=== PATIENT | male | born 1970 | race Caucasian/White ===

== ENCOUNTER → 2017-12-23 14:24 | Outpatient (CLI) | payer BC, SELFPAY ==
[2017-12-23 17:03] LABS: Absolute Lymphocyte Count 1.57 X10^3/ul (0.83-4.51); Absolute Neutrophil Count 3.2 X10^3/uL (2.0-7.7); Basophil# 0.02 X10^3/uL; Basophil% 0.4 % (0-1); Eosinophil# 0.15 X10^3/uL; Eosinophils% 2.8 % (0-5); Hematocrit 45.2 % (40-54); Lymphocyte # 1.57 X10^3/ul (4.0); Lymphocyte % 29.4 % (19-41); Mean Corp Hgb Conc 33.2 g/gl (32-36); Mean Corpuscular Hgb 28.1 pg (27.0-32.0); Mean Corpuscular Volume 84.6 fL (80-94); Mean Platelet Vol. 11.1 fl (6.2-12.0); Monocyte# 0.36 X10^3/uL; Monocyte% 6.7 % (0-10); Neutrophil # 3.24 X10^3/uL (2.7-7.7); Neutrophil % 60.7 % (47-70); POSITIVE COUNT NO; POSITIVE DIFFERENTIAL NO; POSITIVE MORPHOLOGY NO; Platelet Count 183 K/mm3 (150-450); RBC Distribution Width CV 13.2 % (11.6-14.6); RBC Distribution Width SD 40.4 fl (35.1-43.9); Red Blood Count 5.34 M/mm3 (4.6-6.2); White Blood Count 5.3 K/mm3 (4.4-11.0)
[2017-12-23 17:29] LABS: ALB/GLOB Ratio 1.1 RATIO (0.9-2.4); AST(SGOT) 22 U/L (15-37); Alanine Aminotransfer ALT/SGPT 35 U/L (16-61); Alkaline Phosphatase 63 U/L (45-117); Anion Gap 7 (5-15); BUN 19 mg/dL (7-18); BUN/Creat Ratio 18.4 RATIO (10-20); Calcium,Total 9.1 mg/dL (8.5-10.1); Chloride 108 mmol/L (98-107); Creatinine, Serum 1.03 mg/dL (0.70-1.30); EST Glomerular Filtration Rate 82 mL/min (>60); Est Glom Filt Rate - Afr Amer 99 mL/min (>60); Globulin 3.5 g/dL (2.2-4.2); Glucose 93 mg/dL (74-106); Potassium 3.9 mmol/L (3.5-5.1); Protein, Total 7.5 g/dL (6.4-8.2); Sodium Level 141 mmol/L (136-145); Thyroid Stim Hormone (TSH) 1.03 uIU/mL (0.358-3.74)
[2017-12-23 17:55] LABS: Vitamin D,25 Hydroxy 17.3 ng/mL (29.95-100.01)
== END ==
PROVIDERS: Family Provider Family Medicine Geriatric Medicine; PCP Family Medicine Geriatric Medicine; Visit Provider Family Medicine Geriatric Medicine
DX: E55.9 Vitamin D deficiency, unspecified (principal); I10 Essential (primary) hypertension
CPT/HCPCS: 36415; 80053; 82306; 84443; 85025

== ENCOUNTER → 2018-12-28 16:04 | Outpatient (CLI) | payer BC, SELFPAY ==
[2018-12-28 16:55] LABS: Absolute Neutrophil Count 2.8 X10^3/uL (2.0-7.7); Basophil# 0.01 X10^3/uL; Basophil% 0.2 % (0-1); Eosinophil# 0.14 X10^3/uL; Eosinophils% 2.5 % (0-5); Hematocrit 44.5 % (40-54); Hemoglobin 15.1 g/dl (13.0-16.5); Lymphocyte % 37.1 % (19-41); Mean Corp Hgb Conc 33.9 g/gl (32-36); Mean Corpuscular Hgb 27.9 pg (27.0-32.0); Mean Corpuscular Volume 82.3 fL (80-94); Mean Platelet Vol. 11.3 fl (6.2-12.0); Monocyte# 0.55 X10^3/uL; Monocyte% 9.7 % (0-10); Neutrophil # 2.84 X10^3/uL (2.7-7.7); Neutrophil % 50.1 % (47-70); Platelet Count 193 K/mm3 (150-450); RBC Distribution Width CV 13.7 % (11.6-14.6); RBC Distribution Width SD 40.9 fl (35.1-43.9); Red Blood Count 5.41 M/mm3 (4.6-6.2); White Blood Count 5.7 K/mm3 (4.4-11.0)
[2018-12-28 17:11] LABS: Vitamin D,25 Hydroxy 22.8 ng/mL (29.95-100.01)
--- NOTE | 2018-12-28 17:11 | RAD_ITS ---
STUDY: X-RAY CHEST REASON FOR EXAM: Male, 48 years old. Dyspnea TECHNIQUE: Frontal and lateral views of the chest COMPARISON: CT dated 08/07/2016. FINDINGS: There are stable calcified granulomata noted in the lungs. The lungs are otherwise clear. There are no pleural effusions. There is no pneumothorax. The heart is normal in size. The visualized osseous structures are within normal limits. RAD/Chest PA and Lateral IMPRESSION: No acute thoracic pathology. Electronically Signed: Vadim Monge, at 18:02 EDT Tel , Service support ,
[2018-12-28 17:12] LABS: POSITIVE COUNT NO; POSITIVE DIFFERENTIAL NO; POSITIVE MORPHOLOGY NO
[2018-12-28 17:15] LABS: ALB/GLOB Ratio 1.3 RATIO (0.9-2.4); AST(SGOT) 23 U/L (15-37); Alanine Aminotransfer ALT/SGPT 42 U/L (16-61); Albumin, Serum 4.2 g/dL (3.2-5.0); Alkaline Phosphatase 62 U/L (45-117); Anion Gap 8 (5-15); BUN 16 mg/dL (7-18); BUN/Creat Ratio 18.8 RATIO (10-20); Calcium,Total 9.5 mg/dL (8.5-10.1); Chloride 105 mmol/L (98-107); Creatinine, Serum 0.85 mg/dL (0.70-1.30); EST Glomerular Filtration Rate 101 mL/min (>60); Est Glom Filt Rate - Afr Amer 122 mL/min (>60); Globulin 3.3 g/dL (2.2-4.2); Glucose 77 mg/dL (74-106); Potassium 3.8 mmol/L (3.5-5.1); Protein, Total 7.5 g/dL (6.4-8.2); Sodium Level 140 mmol/L (136-145); Thyroid Stim Hormone (TSH) 1.79 uIU/mL (0.358-3.74)
== END ==
LOC: POLAB3 16:04 → RAD 17:10
PROVIDERS: Family Provider Family Medicine Geriatric Medicine; PCP Family Medicine Geriatric Medicine; Referring Provider Family Medicine Geriatric Medicine; Visit Provider Family Medicine Geriatric Medicine
DX: R06.02 Shortness of breath (principal); E55.9 Vitamin D deficiency, unspecified; I10 Essential (primary) hypertension
CPT/HCPCS: 36415; 71046; 80053; 82306; 84443; 85025

== ENCOUNTER → 2019-02-01 09:44 | Outpatient (CLI) | payer BC, SELFPAY ==
--- NOTE | 2019-02-01 10:36 | ECHOD_ITS ---
Reason For Study: SOB Procedure This was a 2D Doppler, Color Flow transthoracic echocardiogram. Exam performed in department. Left Ventricle Normal LV size. Left ventricular systolic function is normal. The estimated ejection fraction is 60 %. No evidence for diastolic dysfunction. No regional wall motion abnormalities noted. Right Ventricle Normal RV size. Normal systolic function. Atria Normal left atrium. Normal right atrium. No doppler evidence for ASD. Mitral Valve There is no mitral annular calcification. Mild diffuse mitral valve thickening. Moderate mitral valve prolapse, posterior leaflet. Mild-Moderate (1-2+) mitral valve insufficiency. Tricuspid Valve Normal tricuspid valve. Trivial tricuspid valve insufficiency. Right ventricular systolic pressure estimated to be 25 mmHg. Aortic Valve Trisinus/trileaflet aortic valve. Mild focal aortic valve calcification. Trivial aortic valve insufficiency. Pulmonic Valve The pulmonic valve is not well visualized. Trivial pulmonic valve insufficiency. Great Vessels Normal sized aortic root. Pericardium/Pleural No pericardial effusion. MMode/2D Measurements & Calculations LVIDd: 4.3 cm IVSd: 1.4 cm Ao root diam: 3.6 cm LVIDs: 2.7 cm LVPWd: 1.6 cm RVDd: 3.6 cm FS: 38.2 % LAV(MOD-bp): 47.2 ml LVAd ap4: 34.4 cm2 SV(MOD-sp4): 69.1 ml LAV(MOD-bp) Indexed: 20.2 ml/m2 EDV(MOD-sp4): 110.5 ml LAV(MOD-sp2): 38.7 ml EDV(sp4-el): 115.6 ml LAV(MOD-sp4): 50.8 ml LVAs ap4: 19.6 cm2 ESV(MOD-sp4): 41.3 ml ESV(sp4-el): 43.5 ml EF(MOD-sp4): 62.6 % EF(sp4-el): 62.4 % SV(sp4-el): 72.1 ml LA A4 area: 17.0 cm2 LA dimension(2D): 3.5 cm RA A4 area: 14.6 cm2 Doppler Measurements & Calculations MV E max jeff: 69.4 cm/sec Lat Peak E' Jeff: 9.2 cm/sec Med Peak E' Jeff: 7.9 cm/sec MV A max jeff: 61.0 cm/sec E/E' lat: 7.5 E/E' med: 8.8 MV E/A: 1.1 Ao V2 max: 126.1 cm/sec LV V1 max: 97.2 cm/sec PA V2 max: 121.1 cm/sec Ao max P.4 mmHg LV V1 max P.8 mmHg TR max jeff: 231.7 cm/sec TR max P.5 mmHg Interpretation Summary Left ventricular systolic function is normal. The estimated ejection fraction is 60 %. Moderate mitral valve prolapse, posterior leaflet Mild diffuse mitral valve thickening. Mild-Moderate (1-2+) mitral valve insufficiency. Trivial tricuspid valve insufficiency. Mild focal aortic valve calcification. Trivial aortic valve insufficiency. Trivial pulmonic valve insufficiency. Right ventricular systolic pressure estimated to be 25 mmHg. No evidence for diastolic dysfunction. Ordering Physician: Claude Onofre Referring Physician: Claude Onofre Chi Performed By: Zoraida Noble, MIKIE
--- NOTE | 2019-02-03 07:55 | PFT ---
INTRODUCTION: The patient is a 49-year-old male that presents for pulmonary function studies secondary to a diagnosis of shortness of breath. Respiratory therapy reports good patient effort. Bronchodilators were used during testing. INTERPRETATION: Forced expiration spirometry demonstrates no evidence of a large airways obstructive ventilatory defect. There was no significant response to aerosolized bronchodilators. Spirograms are of good quality and plateau normally. The respiratory flow volume loop appears normal. Body plethysmography was performed and reveals lung volumes to be within normal limits. Diffusing capacity by single breath CO is also within normal limits. IMPRESSION: Normal pulmonary function studies.
== END ==
PROVIDERS: Family Provider Family Medicine Geriatric Medicine; PCP Family Medicine Geriatric Medicine; Referring Provider Family Medicine Geriatric Medicine; Visit Provider Family Medicine Geriatric Medicine
DX: R06.02 Shortness of breath (principal)
CPT/HCPCS: 93306; 94060; 94726; 94729

== ENCOUNTER → 2019-02-18 06:22 | Outpatient (CLI) | payer BC, SELFPAY ==
[2019-02-07 13:07] VITALS: BMI 33.6
--- NOTE | 2019-02-18 10:21 | STRESSREP_ITS ---
Stress Test Report Date: 02-18-19 Procedure: Exercise tolerance test/imaging study Indications: Chest pain; mitral valve prolapse Consent: Per the patient Procedure: The patient exercised on a Darrion protocol for 9 minutes completing Stage III achieving a peak heart rate of 155 bpm (91 % predicted maximal heart rate) with a peak blood pressure 190/70 mmHg and a peak MET capacity of 10 METs. The baseline ECG demonstrated sinus bradycardia. The peak exercise ECG demonstrated approximately [address] segment depression in leads II, III, aVF, and V4 through V6 with resolution towards baseline beginning by 1 minute in recovery. There were no cardiac dysrhythmias pretest, during exercise, or recovery. The functional capacity was considered good. There was no complaint of chest discomfort during exercise or recovery. The examination was discontinued secondary to dyspnea. Impression: 1. Technically adequate (percent predicted maximal heart rate greater than 85%) exercise tolerance test 2. Peak exercise ECG demonstrated approximately [address] segment depression in leads II, III, aVF, and V4 through V6 with resolution towards baseline beginning by 1 minute in recovery 3. There were no cardiac dysrhythmias pretest, during exercise, or recovery 4. Nuclear images pending Myocardial perfusion imaging study: Technique: The patient was injected with 14.3 mCi of technetium 99m Cardiolite and subsequently rest SPECT Cardiolite nuclear imaging was obtained in the horizontal long, vertical long, and short axis views. The patient exercised on a Darrion protocol for 9 minutes completing Stage III achieving a peak heart rate of 155 bpm (91 % predicted maximal heart rate) with a peak blood pressure 190/70 mmHg and a peak MET capacity of 10 METs. The patient was injected with 44.5 mCi of technetium 99m Cardiolite and subsequently stress SPECT Cardiolite nuclear imaging was obtained in the horizontal long, vertical long, and short axis views. A gated Cardiolite study at peak stress was obtained. Interpretation: Rest and stress SPECT Cardiolite nuclear imaging status post realignment, normalization, and attenuation correction, demonstrates the appearance of relative uniform tracer uptake and myocardial perfusion appearing within normal limits. There were no myocardial perfusion deficits appreciated on the stress polar map images there is end systolic thickening and brightening. The gated Cardiolite study demonstrates myocardial thickening and inward wall motion. The reported LVEF is 63 %. Impression: 1. Rest and stress SPECT Cardiolite nuclear imaging demonstrate relative uniform tracer uptake and myocardial perfusion appearing within normal limits. 2. The gated Cardiolite study reports an LVEF of 63 %. This note was generated with [employer] software. It may contain incorrect words, spelling, and punctuation that were not noted in checking the note before signing.
== END ==
PROVIDERS: Family Provider Family Medicine Geriatric Medicine; PCP Family Medicine Geriatric Medicine; Referring Provider Specialist; Visit Provider Specialist
DX: R07.9 Chest pain, unspecified (principal)
CPT/HCPCS: 78452; 93017; A9500; A4216

== ENCOUNTER 2019-05-19 19:15 | Emergency (ER) | payer BC, SELFPAY ==
[2019-04-27 11:28] VITALS: BMI 33.6
[2019-05-19 19:18] VITALS: BP 145/101; PULSE 99; RESP 18; TEMP 35.3; O2SAT 92; BMI 33.9
--- NOTE | 2019-05-19 19:24 | CT_ITS ---
HISTORY:RT FLANK PAIN TECHNIQUE:CT Abdomen And Pelvis W/O Contrast Axial CT images were obtained of the abdomen and pelvis without oral or IV contrast. Multiplanar rectructions were also obtained. A radiation dose optimization technique was used for this scan. # of images including paperwork:[id number] COMPARISON: None FINDINGS: LUNG BASES: Multiple calcified granuloma LIVER T BILIARY TRACT: Steatosis GALLBLADDER:No cholelithiasis or ductal dilatation PANCREAS: Unremarkable for nonenhanced study SPLEEN: Unremarkable. ADRENAL GLANDS: Unremarkable. KIDNEYS/URETERS:Nonobstructing calcification measuring approximately 2 mm in the upper pole left kidney. There are also nonobstructing Calcifications seen within the right kidney. There is mild right-sided hydronephrosis. Calcification within the inferior collecting system is the largest and measures approximately 6.4 mm. Minimal dilatation of the right ureter that extends to the ureterovesicular junction. There is a 4 mm calcification within the bladder compatible with a recently passed stone. No stones are seen in the left ureter BLADDER: There is a recently passed stone within the bladder STOMACH, SMALL AND LARGE BOWEL: stomach and small bowel are unremarkable No mechanical obstruction No diverticulitis APPENDIX: No appendicitis. ASCITES: Unremarkable. FREE AIR: Unremarkable. PELVIS: Calcifications within the prostate gland. The prostate gland is not apparent enlarged AORTA: Unremarkable. LYMPH NODES: Unremarkable. OSSEOUS STRUCTURES: No acute osseous abnormality CT/Abdomen/Pelvis without Cont IMPRESSION: Mild right-sided hydronephrosis and hydroureter extending to the root of vesicular junction. There is a 4 mm calcification seen within the bladder compatible with a recently passed stone There are nonobstructive gas calcifications seen bilaterally in the kidneys Hepatic steatosis Multiple calcified granuloma in the lungs bilaterally Individualized dose optimization techniques were used for this CT. at 2002 Reported and signed by: Bre Jung DO Electronically Signed: Bre Jung DO at 20:00 EDT Tel , Service support ,
--- NOTE | 2019-05-19 19:29 | ED.VIS.GEN ---
History of Present Illness Chief Complaint: Complaint Informant: Patient Onset: Today Context: Sudden Onset Timing: Intermittent Current Severity: Moderate Maximum Severity: Moderate Narrative: The patient presents to the emergency department with right-sided flank pain. Patient has a history of kidney stone. He states about 4:00 today, he began to have mild pain. He states that wax and wane, and then acutely worsened. The pain radiates into his right testicles. He does describe nausea. He has not vomited. He denies any fevers or chills. He states that he is always passed his stones without issue. He is never required lithotripsy or stenting. Prior similar symptoms: No Recent Illness/Hospitalization: No Past Medical History - Allergies and Home Meds Allergies/Adverse Reactions: Allergies No Known Allergies Allergy (Verified 05/19/19 19:20) Primary Care Physician: Fletcher Pritchett MD [STAFF PHYSICIAN] - Prior records reviewed: Yes Smoking Status: Former smoker Review of Systems General: Denies: Chills, Fever, Sweats Eyes: Denies: Visual changes - bilaterally, Diplopia ENT: Denies: Rhinorrhea, Sore throat Cardiovascular: Denies: Chest pain, Palpitations Respiratory: Denies: Dyspnea, Cough, Dyspnea on exertion Gastrointestinal: Reports: Abdominal pain, Nausea, Vomiting. Denies: Diarrhea, Melena, Hematochezia Genitourinary: Denies: Dysuria, Hematuria, Frequency Musculoskeletal: Reports: Back pain. Denies: Extremity Pain Skin: Denies: Rash, Wounds Neurological: Denies: Headache, Weakness, Numbness Physical Exam Vital Signs/Narrative: Vital Signs Temp Pulse Resp BP Pulse Ox 05/19/19 19:18 95.6 F L 99 18 145/101 H 92 Inital Vital Signs reviewed: Yes General: Well nourished, Well developed, No Acute Distress Head: Normocephalic, Atraumatic Eyes: Perrl, EOMI ENT: Moist mucous membranes, No rhinorrhea Neck: Supple, Nontender Cardiovascular: Regular rate, Regular rhythm, No murmurs Respiratory: No distress, CTA bilaterally, Chest nontender Abdomen: Soft, Nontender, Nondistended, Normal bowel sounds Back: Nontender, Normal Inspection Extremities: Nontender, No edema Skin: Normal color, No rash Neurological: Alert, Oriented x3, Cranial nerves II-XII grossly intact, Normal Strength, Normal Sensation Psychological: Normal affect, Normal Mood Diagnostic/Tx/Re-eval Clinical Impression(s) from Imaging Studies Abdomen/Pelvis CT 05/19/19 19:24 IMPRESSION: Mild right-sided hydronephrosis and hydroureter extending to the root of vesicular junction. There is a 4 mm calcification seen within the bladder compatible with a recently passed stone There are nonobstructive gas calcifications seen bilaterally in the kidneys Hepatic steatosis Multiple calcified granuloma in the lungs bilaterally Individualized dose optimization techniques were used for this CT. at 2002 Reported and signed by: Bre Jung DO Electronically Signed: Bre Jung DO at 20:00 EDT Tel , Service support , Abnormal Lab Results 05/19/19 05/19/19 05/19/19 19:30 19:30 20:27 WBC 9.6 RBC 5.55 Hgb 15.9 Hct 48.0 MCV 86.5 MCH 28.6 MCHC 33.1 RDW Std Deviation 40.5 RDW Coeff of Funmilayo 13.0 Plt Count 189 MPV 10.7 Immature Gran % (Auto) 0.400 Neut % (Auto) 81.9 H Lymph % (Auto) 13.2 L [place] % (Auto) 3.6 Eos % (Auto) 0.5 Baso % (Auto) 0.4 Absolute Neuts (auto) 7.8 H Absolute Lymphs (auto) 1.26 Nucleated RBC % 0 Sodium 140 Potassium 3.8 Chloride 105 Carbon Dioxide 29.0 Anion Gap 6 BUN 19 H Creatinine 1.41 H Estim Creat Clear Calc 68.79 Est GFR (MDRD) Af Amer 68 Est GFR (MDRD) Non-Af 57 L BUN/Creatinine Ratio 13.5 Glucose 163 H Calcium 9.7 Urine Color Yellow Urine Clarity Sl. Cloudy Urine pH 5.0 Ur Specific [place] 1.030 Urine Protein 15 H Urine Glucose (UA) Normal Urine Ketones 5 H Urine Occult Blood 250 H Urine Nitrite Negative Urine Bilirubin Negative Urine Urobilinogen Normal Ur Leukocyte Esterase 25 H Urine RBC 5-10 SEEN Urine WBC 0-5 SEEN Ur Squamous Epith Cells 0 SEEN Calcium Oxalate Crystal 1+ Urine Bacteria RARE Urine Mucus 3+ - Medical Decision Making The patient symptoms are consistent with renal colic. IV was established. He was given analgesics and antiemetics. On reevaluation, he is pain-free. He does have mild elevation of his kidney function. CT demonstrates a 4 mm stone that is already in the bladder. The patient continues rest comfortably. At this point, I do feel that he is safe for outpatient therapy. He has seen urology in the past. His stone is already in the bladder. Given a short course of analgesics. He will be discharged home. Impression 1. 4 mm right urolithiasis in the bladder ED Disposition - Plan for ED Patient: Instructions: KIDNEY STONE w/ Colic Prescriptions: Hydrocodone Bitart/Apap 5-325 [[place] 5MG-325MG] 1 tab PO Q4H PRN PRN 2 Days #10 tab PRN Reason: Pain Prescription Printed Ondansetron [Zofran Odt] 4 mg PO Q8H PRN PRN #10 tab PRN Reason: Nausea Prescription Printed Referrals: Fletcher Pritchett MD [STAFF PHYSICIAN] -
[2019-05-19 19:39] VITALS: RESP 16
[2019-05-19 19:39] LABS: Absolute Lymphocyte Count 1.26 X10^3/uL (0.83-4.51); Absolute Neutrophil Count 7.8 X10^3/uL (2.0-7.7); Basophil# 0.04 X10^3/uL; Basophil% 0.4 % (0-1); Eosinophil# 0.05 X10^3/uL; Eosinophils% 0.5 % (0-5); Hemoglobin 15.9 g/dL (13.0-16.5); Lymphocyte # 1.26 X10^3/ul (4.0); Lymphocyte % 13.2 % (19-41); Mean Corp Hgb Conc 33.1 g/dL (32-36); Mean Corpuscular Hgb 28.6 pg (27.0-32.0); Mean Corpuscular Volume 86.5 fL (80-94); Mean Platelet Vol. 10.7 fl (6.2-12.0); Monocyte# 0.34 X10^3/uL; Monocyte% 3.6 % (0-10); NRBC Flagged by Analyzer 0 % (0-5); Neutrophil # 7.83 X10^3/uL (2.7-7.7); Neutrophil % 81.9 % (47-70); Platelet Count 189 K/mm3 (150-450); RBC Distribution Width SD 40.5 fl (35.1-43.9); Red Blood Count 5.55 M/mm3 (4.6-6.2); White Blood Count 9.6 K/mm3 (4.4-11.0)
[2019-05-19] MEDS: 0.9% Normal Saline 1,000 ML 250 ML IV (19:44)
[2019-05-19] MEDS: Morphine 4 MG/ML Syringe IV (19:45)
[2019-05-19] MEDS: Ondansetron 4 MG/2 ML Vial IV (19:45)
[2019-05-19] MEDS: Ketorolac 30 MG/ML Syringe IV (19:47)
[2019-05-19 19:51] LABS: Anion Gap 6 (5-15); BUN 19 mg/dL (7-18); BUN/Creat Ratio 13.5 RATIO (10-20); Calcium,Total 9.7 mg/dL (8.5-10.1); Chloride 105 mmol/L (98-107); Creatinine, Serum 1.41 mg/dL (0.70-1.30); EST Glomerular Filtration Rate 57 mL/min (>60); Est Glom Filt Rate - Afr Amer 68 mL/min (>60); Estimated Creatinine Clearance 68.79 ml/min; Glucose 163 mg/dL (74-106); Potassium 3.8 mmol/L (3.5-5.1); Sodium Level 140 mmol/L (136-145)
[2019-05-19 20:37] LABS: Squamous Epithelial Cells - UA 0 SEEN /hpf (0-5)
[2019-05-19 20:38] LABS: Color, Urine Yellow (Yellow); Glucose, Dipstick Normal (Normal); Ketone-Dipstick 5 mg/dl (Negative); Leukocyte Esterase-Dipstick 25 /ul (Negative); Nitrite-Dipstick Negative (Negative); Occult Blood-Urine 250 /ul (Negative); Protein-Dipstick 15 mg/dl (Negative); Urine Bilirubin Dipstick Negative (Negative); Urine Clarity Sl. Cloudy (Clear); Urine Urobilinogen Normal (Normal)
[2019-05-19 20:56] LABS: Calcium Oxalate Crystals Ur 1+ /hpf (<or=2+); Mucous, Urine 3+ /hpf (<or=2+); Red Blood Cells-Urine 5-10 SEEN /hpf (0-5); White Blood Cells 0-5 SEEN /hpf (0-5)
[2019-05-19 20:58] LABS: Bacteria RARE /hpf (None Seen)
[2019-05-19 21:26] VITALS: BP 117/75; PULSE 93; RESP 16; O2SAT 95
== END 2019-05-19 21:28 | disposition home or self-care (01) ==
LOC: ED 19:47
PROVIDERS: Emergency Provider Emergency Medicine; Family Provider Family Medicine Geriatric Medicine; PCP Family Medicine Geriatric Medicine
DX: N21.0 Calculus in bladder (principal); Z87.442 Personal history of urinary calculi; Z87.891 Personal history of nicotine dependence
CPT/HCPCS: 74176; 80048; 81001; 85025; 96361; 96374; 96375; 99283; J7030; A4216; J2405

== ENCOUNTER 2019-06-09 04:33 | Emergency (ER) | payer BC, SELFPAY ==
[2019-06-09 04:34] VITALS: BP 168/109; PULSE 92; RESP 20; TEMP 36.8; O2SAT 98; BMI 33.9
--- NOTE | 2019-06-09 04:44 | CT_ITS ---
STUDY: CT ABDOMEN AND PELVIS WITHOUT CONTRAST REASON FOR EXAM: Male, 49 years old. Right flank pain. RADIATION DOSAGE (If Supplied By Facility): CTDIvol = ( 15.28 ) mGy, DLP = ( 877.87 ) mGycm TECHNIQUE: Transaxial images were obtained from the dome of the diaphragm to the symphysis pubis without oral contrast, and without intravenous contrast. Sagittal and coronal images were reconstructed. Individualized dose optimization techniques were used for this CT. COMPARISON: 05/19/2019. FINDINGS: Multiple bilateral calcified granulomas demonstrated throughout the lung bases, stable in the interval. Remainder of the lung bases are clear. The visualized portions of the heart are within normal limits. There is decreased attenuation of the liver consistent with steatosis. Normal gallbladder and extrahepatic biliary system. Normal spleen. Normal pancreas. Normal bilateral adrenal glands. There is mild right-sided hydronephrosis. There is a 3 mm stone within the lower pole of the right kidney. Remainder of the right kidney is normal. There is mild fullness of the proximal right ureter with a 4.6 mm stone visualized within the proximal right ureter approximately 2 cm below the UP junction. Remainder of the right ureter is normal. No other stones along the trajectory of the left ureter. There are at least 2 stones visualized within the lower pole of the left kidney, each largest measuring 3 mm. There is a 1 mm stone within the middle pole of the left kidney and 1 mm stone within the upper pole of the left kidney. No left hydronephrosis. Normal visualized stomach. Normal small intestine. Normal colon. The appendix is visualized and appears normal. There is mild atherosclerotic calcification of the abdominal aorta, without a demonstrated aneurysm. Normal inferior vena cava. Normal retroperitoneum. Normal urinary bladder. Normal visualized prostate gland. Normal abdominal wall. There are diffuse degenerative changes of the visualized lumbar spine. CT/Abdomen/Pelvis without Cont IMPRESSION: Mild right hydronephrosis due to a 4.6 mm stone within the proximal right ureter, approximately 2 cm below the right UP junction. Bilateral intrarenal stones as described above. No left hydronephrosis. Diffuse fatty liver. Electronically Signed: Gris Martinez MD at 5:27 EDT , Service support ,
[2019-06-09] MEDS: 0.9% Normal Saline 1,000 ML 1000 ML IV (04:54)
[2019-06-09] MEDS: Ondansetron 4 MG/2 ML Vial IV (04:54)
[2019-06-09] MEDS: Ketorolac 30 MG/ML Syringe IV (04:54)
[2019-06-09 05:13] LABS: Absolute Lymphocyte Count 1.41 X10^3/uL (0.83-4.51); Basophil# 0.04 X10^3/uL; Basophil% 0.5 % (0-1); Eosinophil# 0.08 X10^3/uL; Hematocrit 45.5 % (40-54); Hemoglobin 15.4 g/dL (13.0-16.5); Lymphocyte # 1.41 X10^3/ul (4.0); Lymphocyte % 17.6 % (19-41); Mean Corp Hgb Conc 33.8 g/dL (32-36); Mean Corpuscular Hgb 28.7 pg (27.0-32.0); Mean Corpuscular Volume 84.7 fL (80-94); Monocyte# 0.43 X10^3/uL; Monocyte% 5.4 % (0-10); NRBC Flagged by Analyzer 0 % (0-5); Neutrophil # 6.04 X10^3/uL (2.7-7.7); Neutrophil % 75.1 % (47-70); Platelet Count 182 K/mm3 (150-450); RBC Distribution Width CV 12.9 % (11.6-14.6); RBC Distribution Width SD 39.6 fl (35.1-43.9); Red Blood Count 5.37 M/mm3 (4.6-6.2)
[2019-06-09 05:22] LABS: Anion Gap 7 (5-15); BUN 20 mg/dL (7-18); BUN/Creat Ratio 15.2 RATIO (10-20); Calcium,Total 9.3 mg/dL (8.5-10.1); Chloride 103 mmol/L (98-107); Creatinine, Serum 1.32 mg/dL (0.70-1.30); EST Glomerular Filtration Rate 61 mL/min (>60); Est Glom Filt Rate - Afr Amer 74 mL/min (>60); Estimated Creatinine Clearance 73.48 ml/min; Glucose 156 mg/dL (74-106); Potassium 3.8 mmol/L (3.5-5.1); Sodium Level 139 mmol/L (136-145)
[2019-06-09 05:59] LABS: Bacteria 0 SEEN /hpf (None Seen); Mucous, Urine 0 SEEN /hpf (<or=2+); Squamous Epithelial Cells - UA 0 SEEN /hpf (0-5); White Blood Cells 0 SEEN /hpf (0-5)
[2019-06-09 06:17] LABS: Color, Urine Yellow (Yellow); Glucose, Dipstick Normal (Normal); Ketone-Dipstick Negative (Negative); Leukocyte Esterase-Dipstick Negative /ul (Negative); Nitrite-Dipstick Negative (Negative); Occult Blood-Urine 250 /ul (Negative); Protein-Dipstick Negative (Negative); Specific Gravity, Urine 1.025 (1.002-1.030); Urine Bilirubin Dipstick Negative (Negative); Urine Clarity Clear (Clear); Urine Urobilinogen Normal (Normal)
[2019-06-09 06:18] LABS: Red Blood Cells-Urine 25-50 SEEN /hpf (0-5)
--- NOTE | 2019-06-09 06:18 | ED.DCSUM_ITS ---
- ER Visit Summary Date of Service: 06/09/19 Chief Complaint: Right flank pain History of Present Illness: The patient is a 49 M with right flank pain. The pain will come up suddenly from sleep. Associate with nausea. The pain radiates into his right lower abdomen. History of kidney stones. Physical Examination: Afebrile and vital signs unremarkable. Patient appears uncomfortable. Right CVA tenderness noted. Skin appears normal. Test Results: CBC unremarkable. Glucose 156, BUN 20, creatinine 1.32. Urinalysis pending. CT shows right hydronephrosis with a 4.6 mm stone in the proximal right ureter and fatty liver. Emergency Department Course and Treatment: Patient treated with fluids, Zofran, Toradol. On reevaluation, pain is 2 out of 10. Still awaiting urinalysis. Will reassess pain. Urinalysis unremarkable except for blood. Patient would like to try outpatient therapy. He was referred to Dr. Pritchett. Will prescribe pain medicine, nausea medicine, Flomax. Stay hydrated. Return for any new or worsening issues. Patient was advised that he may not pass this spontaneously and may require procedures. Return for new or worsening issues. Follow-up with urology. Treatment Plan: As above Disposition: Discharge Impression: 1. Right ureteral colic This note was generated with [employer] dictation software. It may contain incorrect words, spelling, and punctuation that were not noted in review of the chart prior to signing ED Disposition - Plan for ED Patient: Referrals: Claude Onofre Chi, MD [Primary Care Provider] -
--- NOTE | 2019-06-09 06:25 | ED.DEP ---
ED Disposition - Plan for ED Patient: Instructions: KIDNEY STONE w/ Colic Prescriptions: Tamsulosin HCl [Flomax] 0.4 mg PO DAILY #7 cap Prescription Printed Oxycodone HCl/Acetaminophen [Percocet 5/325] 1 tab PO Q6H PRN PRN 3 Days #12 tab PRN Reason: Pain Prescription Printed Ondansetron [Zofran Odt] 4 mg PO Q8H PRN PRN #10 tab PRN Reason: Nausea Prescription Printed Referrals: Fletcher Pritchett MD [STAFF PHYSICIAN] -
[2019-06-09 06:41] VITALS: BP 130/83; RESP 16
== END 2019-06-09 06:49 | disposition home or self-care (01) ==
PROVIDERS: Emergency Provider Emergency Medicine; Family Provider Family Medicine Geriatric Medicine; PCP Family Medicine Geriatric Medicine
DX: N13.2 Hydronephrosis with renal and ureteral calculous obstruction (principal); Z87.442 Personal history of urinary calculi
CPT/HCPCS: 74176; 80048; 81001; 85025; 96361; 96374; 96375; 99283; J7030; A4216; J2405

== ENCOUNTER 2019-06-10 10:51 | Day surgery (SDC) | payer BC, SELFPAY ==
[2019-06-09 04:34] VITALS: BMI 33.9
[2019-06-10] VITALS (9 sets, daily range): BP systolic 127–160; BP diastolic 78–101; PULSE 78–103; RESP 16–17; TEMP 36.4–37.2; O2SAT 92–100; BMI 33.1
[2019-06-10] MEDS: HYDROmorphone 1 MG/ML Syringe IV (11:56)
[2019-06-10] MEDS: Ketorolac 30 MG/ML Syringe IV (11:56)
[2019-06-10] MEDS: Ondansetron 4 MG/2 ML Vial IV (11:56)
[2019-06-10] MEDS: 0.9% Normal Saline 1,000 ML 1000 ML IV (11:56)
--- NOTE | 2019-06-10 12:48 | ED.DCSUM_ITS ---
- ER Visit Summary Date of Service: 06/10/19 Chief Complaint: Right flank pain History of Present Illness: The patient is a 49 M history of kidney stones and mitral valve prolapse. Patient states that he was seen here within the last 2 days diagnosed with a 4.6 mm proximal right ureter stone. He has been taking Percocet for pain. 7 worst pain today. Associated nausea and vomiting. No fever. Still makes urine. Physical Examination: Middle-aged male actively nauseated holding an emesis bag complaining of pain. Vital signs are stable and afebrile. HEENT exam unremarkable. Lungs clear to auscultation. Heart regular rhythm no murmur. Abdomen soft nontender normal bowel sounds no peritoneal signs. Extremities moves all 4. Neurovascular intact. Back nontender no CVA. Test Results: I reviewed the patient's CAT scan labs from the other day. He do es indeed have a proximal right ureteral stone with hydronephrosis. Emergency Department Course and Treatment: Treated with IV fluids, Dilaudid, Toradol and Zofran. On repeat exam he is feeling much better. Treatment Plan: I spoke to the patient's urologist and Dr. Pritchett will take patient to the operating room to remove the stone. Disposition: Patient will be taken down to the operating room. Impression: Acute right proximal ureteral calculi with hydronephrosis secondary to obstruction Intractable pain This note was generated with [employer] dictation software. It may contain incorrect words, spelling, and punctuation that were not noted in review of the chart prior to signing ED Disposition - Plan for ED Patient: Referrals: Claude Onofre Chi, MD [Primary Care Provider] -
--- NOTE | 2019-06-10 14:12 | PCM.HP.STD ---
Problem List (1) Right ureteral calculus Status: Acute History of Present Illness Date of Admission: 06/10/19 Chief Complaint: Right kidney stone The patient is a 49 year old male who presented to the emergency room today with severe renal colic from a 6 mm stone causing high-grade obstruction of the right kidney. We discussed the options of the patient go home and have an appointment to see if he can move the stone but given how big the stone is intractable pain I also offered him surgery today with stent placement and right ESWL. He was agreeable with proceeding with surgery. Past Medical History Past Medical History (Chronic Problems): Chronic Problems (Last Reviewed 04/27/19 @ 11:51 by Daxa Amaral MD) Nonrheumatic mitral valve insufficiency (Chronic) Mitral valve prolapse (Chronic) Essential hypertension (Chronic) Hyperlipidemia (Chronic) Medical History: Medical History (Last Reviewed 04/27/19 @ 11:51 by Daxa Amaral MD) Shortness of breath (Acute) R06.02 Chest pain (Acute) R07.9 Nonrheumatic mitral valve insufficiency (Chronic) I34.0 Mitral valve prolapse (Chronic) I34.1 Essential hypertension (Chronic) I10 Hyperlipidemia (Chronic) E78.5 History of kidney stones Z87.442 Lung nodules R91.8 Vitamin D deficiency E55.9 Allergies No Known Allergies Allergy (Verified 06/10/19 10:52) Home Medications: Ambulatory Orders Medication Instructions Recorded Lisinopril [Zestril] 10 mg PO DAILY 10/28/13 atorvastatin 40 mg tablet 40 mg PO QHS 02/04/19 cholecalciferol (vitamin D3) 1,000 1,000 unit PO DAILY 02/07/19 unit capsule vitamin B complex tablet 1 tab PO DAILY 02/07/19 Ondansetron [Zofran Odt] 4 mg PO Q8H PRN PRN #10 tab 06/09/19 Oxycodone HCl/Acetaminophen 1 tab PO Q6H PRN PRN 3 Days #12 tab 06/09/19 [Percocet 5/325] Tamsulosin HCl [Flomax] 0.4 mg PO DAILY #7 cap 06/09/19 Surgical History: Surgical History (Last Reviewed 04/27/19 @ 11:51 by Daxa Amaral MD) History of carpal tunnel release of both wrists Z98.890 History of discectomy Z98.890 Surgical History: noncontributory Psychiatric History: No pertinent psych hx Lives: With Family Smoking Status: Never smoker Tobacco Use: Non-smoker Alcohol: None Drugs: None - *Family History Maternal Family History: Family History (Last Reviewed 04/27/19 @ 11:51 by Daxa Amaral MD) Father Myocardial infarction, Onset Age: 43 Cancer Hypertension History Items: No pertinent history Review of Systems Constitutional: Denies: Chills, Fever, Weight Change HEENT: Denies: Head Aches, Sinus Congestion, Sinus Drainage Cardiovascular: Denies: Chest Pain, Palpitations Respiratory: Denies: Cough, Shortness of breath at rest, Sputum production Gastrointestinal: Reports: Abdominal Pain. Denies: Nausea, Vomiting Genitourinary: Denies: Dysuria Musculoskeletal: Denies: Joint Pain, Joint Tenderness Skin: Denies: Rash, Wounds Neurological: Denies: Numbness, Tingling, Focal weakness Psychiatric: Denies: Anxiety, Depression, Homicidal Ideations, Suicidal Ideations Hematologic/ Lymphatic: Denies: Easy Bruising, Easy Bleeding VTE Information - Inpt Only VTE Present on Admission: No VTE Mechan Device Prophylaxis: SCD's Patient Problems: Active and Suspected Problems (Last Reviewed 04/27/19 @ 11:51 by Daxa Amaral MD) Right ureteral calculus (Acute) - Physical Exam Vitals/I&O's: Vital Signs Temp Pulse Resp BP Pulse Ox 98.8 F 95 16 143/96 H 99 06/10/19 12:55 06/10/19 12:55 06/10/19 12:55 06/10/19 13:24 06/10/19 12:55 Oxygen Delivery Method Room Air Weight: 110.9 kg Body Mass Index (BMI) 33.1 Intake and Output for Last 24 Hours 06/08/19 06/09/19 06/10/19 23:59 23:59 23:59 Intake Total 1000 / 1000 Balance 1000 / 1000 General: Alert, Oriented x3, Cooperative HEENT: Atraumatic, PERRLA, EOMI, Normocephalic Neck: Supple, No JVD, Negative Carotid Bruits Lungs: Clear to auscultation, Normal air movement Cardiovascular: Regular rate, No murmurs Abdomen: Bowel Sounds Present, Soft, Non Tender Extremities: No edema, Capillary Refill Less than 3 Seconds Skin: No rashes, No breakdown Musculoskeletal: No Tenderness to Palpation of Joints or Extremities Neurological: Cranial nerves II-XII grossly intact Psych/Mental Status: Normal Affect, Appropriate Assessment/Plan All Active Problems (Last Reviewed 04/27/19 @ 11:51 by Daxa Amaral MD) Right ureteral calculus (Acute) Shortness of breath (Acute) Chest pain (Acute) 49-year-old male presents to the emergency room with a stone in the proximal right ureter causing severe renal colic obstruction and pain plan to taken to surgery today for a cystoscopy right stent placement and right ESWL understands that stone may not break may need more than one procedure. We will see him then next Thursday for a stent removal with a cystoscopy.
--- NOTE | 2019-06-10 14:14 | DCINST_ITS ---
- Discharge Diagnoses Current Active Problems: Current Active and Chronic Problems (Last Reviewed 04/27/19 @ 11:51 by Daxa Amaral MD) Right ureteral calculus (Acute) Reason(s) for Visit for Discharge Instructions: Cystoscopy right stent placement and right ESWL You will use the following diet at home:: No restrictions, Regular Your food should be the consistency of: Regular Discharge Activity: Return to Normal Activity, May not drive while taking narcotic pain medications. Call your doctor if you observe: Fever of 101 or Higher Allergies/Adverse Reactions: Allergies No Known Allergies Allergy (Verified 06/10/19 10:52) Medications to take at Discharge Lisinopril [Zestril] 10 mg PO DAILY 10/28/13 atorvastatin 40 mg tablet 40 mg PO QHS 02/04/19 cholecalciferol (vitamin D3) 1,000 unit capsule 1,000 unit PO DAILY 02/07/19 vitamin B complex tablet 1 tab PO DAILY 02/07/19 Ondansetron [Zofran Odt] 4 mg PO Q8H PRN PRN #10 tab 06/09/19 Oxycodone HCl/Acetaminophen [Percocet 5/325] 1 tab PO Q6H PRN PRN 3 Days #12 tab 06/09/19 Tamsulosin HCl [Flomax] 0.4 mg PO DAILY #7 cap 06/09/19 Primary Care Physician: Claude Onofre Chi, MD [Primary Care Provider] - Test Results: Test results from this visit will be discussed in further detail at your follow- up appointment, if applicable. Please Follow Up With: Fletcher Pritchett MD When: Keep appointment for next week.
[2019-06-10] MEDS: Cefazolin 2 GM in 0.9% Normal Saline 100 ML IV (14:19)
--- NOTE | 2019-06-10 15:19 | PCM.OPRPT ---
Problem List (1) Right ureteral calculus Status: Acute Report of Operation Date of Procedure: 06/10/19 Pre-Operative Diagnosis: Right proximal ureteral calculi Post-Operative Diagnosis: Same Surgery/Procedure Performed:: Cystoscopy right stent placement right extracorporeal shockwave lithotripsy Description of Surgical Findings:: 54-year-old male presented to the emergency room with severe right renal colic from a stone causing obstruction in the proximal right ureter he was admitted to the hospital taken to surgery today and will get a proceed with a stent placement and shockwave lithotripsy of the stone. Patient was taken back to the operating room at the smooth induction of anesthesia he was placed in dorsolithotomy position went into the bladder through the urethra with a 21 [place] rigid cystourethroscope, the entire length urethra is normal the sphincter was normal the verumontanum was normal prostate was normal, identified the trigone which was normal I then cannulated the right ureteral orifice with a Glidewire advanced a wire up past the stone and then over the wire advanced a stent once a stent was in good position pulled the wire the stent in the kidney bladder good position. Patient was then repositioned on the table we found the stone in the kidney was that was pushed up by the stent and we delivered 3000 shockwaves to the stone at a rate of 90/min, power up to 7 kV. At the end of the treatment cycle the stone it broken up in the nice small fragments that should pass on their own. Patient anesthetic was reversed to take back to PACU good condition plan to see him next week for cystoscopy and stent removal. Type of Anesthesia:: General Drains: stent right side - Admit VTE Documentation VTE Present on Admission: No VTE Mechan Device Prophylaxis: SCD's
[2019-06-10] MEDS: Ketorolac 15 MG/ML Vial IV (15:43)
== END 2019-06-10 17:45 | disposition home or self-care (01) ==
LOC: ED 12:45 → SDC 12:59 → AC 13:00
PROVIDERS: Emergency Provider Emergency Medicine; Family Provider Family Medicine Geriatric Medicine; PCP Family Medicine Geriatric Medicine; Visit Provider Urology
PROC: (CPT 50590; principal; 2019-06-10 14:50)
DX: N13.2 Hydronephrosis with renal and ureteral calculous obstruction (principal); Z87.442 Personal history of urinary calculi; I34.1 Nonrheumatic mitral (valve) prolapse; I10 Essential (primary) hypertension; E78.00 Pure hypercholesterolemia, unspecified; E55.9 Vitamin D deficiency, unspecified; Z79.899 Other long term (current) drug therapy
CPT/HCPCS: 00873; 50590; 52332; 99284; J7030; J7120; A4216; C2617; J2405

== ENCOUNTER → 2019-06-15 08:21 | Outpatient (CLI) | payer BC, SELFPAY ==
[2019-06-10 14:18] VITALS: BMI 33.1
--- NOTE | 2019-06-15 08:30 | RAD_ITS ---
STUDY: X-RAY - ABDOMEN/PELVIS REASON FOR EXAM: Male, 49 years old. Kidney stone. TECHNIQUE: Single AP view of the abdomen / pelvis. COMPARISON: 12/27/2015. FINDINGS: Lung base is not included in the [id number]. There is an unremarkable bowel gas pattern. There is no demonstrated free abdominal air. There is a right-sided ureteral stent in place. There is a subtle calcification projecting over the lower pole of the right kidney measuring approximately 5 mm. Otherwise the visualized liver, spleen and kidneys are grossly normal in size and morphology. There are calcified phleboliths in the pelvis. There are diffuse degenerative changes of the visualized lumbar spine. RAD/Abdomen Single View IMPRESSION: Right-sided ureteral stent in place with suggestion of small stone at the level of the lower pole of the right kidney. Electronically Signed: Gris Martinez MD at 1:53 EDT , Service support ,
== END ==
PROVIDERS: Family Provider Family Medicine Geriatric Medicine; PCP Family Medicine Geriatric Medicine; Referring Provider Urology; Visit Provider Urology
DX: N20.0 Calculus of kidney (principal)
CPT/HCPCS: 74018

== ENCOUNTER → 2019-06-28 16:32 | Outpatient (CLI) | payer BC, SELFPAY ==
[2019-06-10 14:18] VITALS: BMI 33.1
[2019-06-28 17:16] LABS: Absolute Lymphocyte Count 1.41 X10^3/uL (0.83-4.51); Absolute Neutrophil Count 2.5 X10^3/uL (2.0-7.7); Basophil# 0.03 X10^3/uL; Basophil% 0.7 % (0-1); Eosinophil# 0.13 X10^3/uL; Eosinophils% 2.9 % (0-5); Hematocrit 41.6 % (40-54); Hemoglobin 14.1 g/dL (13.0-16.5); Lymphocyte # 1.41 X10^3/ul (4.0); Lymphocyte % 31.5 % (19-41); Mean Corp Hgb Conc 33.9 g/dL (32-36); Mean Corpuscular Hgb 28.6 pg (27.0-32.0); Mean Corpuscular Volume 84.4 fL (80-94); Mean Platelet Vol. 11.1 fl (6.2-12.0); Monocyte# 0.39 X10^3/uL; Monocyte% 8.7 % (0-10); NRBC Flagged by Analyzer 0 % (0-5); Neutrophil # 2.51 X10^3/uL (2.7-7.7); Neutrophil % 56.2 % (47-70); Platelet Count 200 K/mm3 (150-450); RBC Distribution Width CV 13.1 % (11.6-14.6); RBC Distribution Width SD 39.8 fl (35.1-43.9); Red Blood Count 4.93 M/mm3 (4.6-6.2); White Blood Count 4.5 K/mm3 (4.4-11.0)
[2019-06-28 18:09] LABS: ALB/GLOB Ratio 1.2 RATIO (0.9-2.4); AST(SGOT) 25 U/L (15-37); Alanine Aminotransfer ALT/SGPT 37 U/L (16-61); Albumin, Serum 3.6 g/dL (3.2-5.0); Alkaline Phosphatase 80 U/L (45-117); Anion Gap 9 (5-15); BUN 21 mg/dL (7-18); BUN/Creat Ratio 18.3 RATIO (10-20); Calcium,Total 8.9 mg/dL (8.5-10.1); Chloride 108 mmol/L (98-107); Creatinine, Serum 1.15 mg/dL (0.70-1.30); EST Glomerular Filtration Rate 71 mL/min (>60); Est Glom Filt Rate - Afr Amer 86 mL/min (>60); Globulin 3.1 g/dL (2.2-4.2); Glucose 123 mg/dL (74-106); Potassium 3.8 mmol/L (3.5-5.1); Protein, Total 6.7 g/dL (6.4-8.2); Sodium Level 143 mmol/L (136-145); Thyroid Stim Hormone (TSH) 0.99 uIU/mL (0.358-3.74)
== END ==
PROVIDERS: Family Provider Family Medicine Geriatric Medicine; PCP Family Medicine Geriatric Medicine; Visit Provider Family Medicine Geriatric Medicine
DX: E55.9 Vitamin D deficiency, unspecified (principal); I10 Essential (primary) hypertension
CPT/HCPCS: 36415; 80053; 82306; 84443; 85025

== ENCOUNTER → 2019-09-13 15:26 | Outpatient (CLI) | payer BC, SELFPAY ==
[2019-06-10 14:18] VITALS: BMI 33.1
[2019-09-13 16:52] LABS: Absolute Lymphocyte Count 1.66 X10^3/uL (0.83-4.51); Absolute Neutrophil Count 2.1 X10^3/uL (2.0-7.7); Basophil# 0.03 X10^3/uL; Basophil% 0.7 % (0-1); Eosinophil# 0.16 X10^3/uL; Eosinophils% 3.7 % (0-5); Hematocrit 42.9 % (40-54); Hemoglobin 14.4 g/dL (13.0-16.5); Lymphocyte # 1.66 X10^3/ul (4.0); Lymphocyte % 38.2 % (19-41); Mean Corp Hgb Conc 33.6 g/dL (32-36); Mean Corpuscular Hgb 27.9 pg (27.0-32.0); Mean Platelet Vol. 10.8 fl (6.2-12.0); Monocyte# 0.39 X10^3/uL; NRBC Flagged by Analyzer 0 % (0-5); Neutrophil # 2.09 X10^3/uL (2.7-7.7); Neutrophil % 48.2 % (47-70); Platelet Count 173 K/mm3 (150-450); RBC Distribution Width CV 12.9 % (11.6-14.6); Red Blood Count 5.17 M/mm3 (4.6-6.2); White Blood Count 4.3 K/mm3 (4.4-11.0)
== END ==
PROVIDERS: PCP Family Medicine Geriatric Medicine; Visit Provider Family Medicine Geriatric Medicine
DX: D64.9 Anemia, unspecified (principal)
CPT/HCPCS: 36415; 85025; 86850; 86900; 86901; 86920; 86922

== ENCOUNTER → 2020-01-04 15:46 | Outpatient (CLI) | payer BC, SELFPAY ==
[2019-11-01 11:30] VITALS: BMI 33.9
[2020-01-04 16:19] LABS: Absolute Lymphocyte Count 1.84 X10^3/uL (0.83-4.51); Absolute Neutrophil Count 2.9 X10^3/uL (2.0-7.7); Basophil# 0.05 X10^3/uL; Basophil% 0.9 % (0-1); Eosinophil# 0.14 X10^3/uL; Eosinophils% 2.6 % (0-5); Hematocrit 43.8 % (40-54); Hemoglobin 14.7 g/dL (13.0-16.5); Lymphocyte # 1.84 X10^3/ul (4.0); Lymphocyte % 33.9 % (19-41); Mean Corp Hgb Conc 33.6 g/dL (32-36); Mean Corpuscular Hgb 27.9 pg (27.0-32.0); Mean Corpuscular Volume 83.3 fL (80-94); Mean Platelet Vol. 11.1 fl (6.2-12.0); Monocyte# 0.49 X10^3/uL; NRBC Flagged by Analyzer 0 % (0-5); Neutrophil # 2.89 X10^3/uL (2.7-7.7); Neutrophil % 53.4 % (47-70); Platelet Count 210 K/mm3 (150-450); RBC Distribution Width CV 12.8 % (11.6-14.6); RBC Distribution Width SD 38.6 fl (35.1-43.9); Red Blood Count 5.26 M/mm3 (4.6-6.2); White Blood Count 5.4 K/mm3 (4.4-11.0)
[2020-01-04 16:57] LABS: ALB/GLOB Ratio 1.3 RATIO (0.9-2.4); AST(SGOT) 23 U/L (15-37); Alanine Aminotransfer ALT/SGPT 36 U/L (16-61); Albumin, Serum 4.2 g/dL (3.2-5.0); Alkaline Phosphatase 66 U/L (45-117); Anion Gap 6 (5-15); BUN 16 mg/dL (7-18); BUN/Creat Ratio 16.2 RATIO (10-20); Calcium,Total 9.1 mg/dL (8.5-10.1); Chloride 106 mmol/L (98-107); Creatinine, Serum 0.99 mg/dL (0.70-1.30); EST Glomerular Filtration Rate 85 mL/min (>60); Est Glom Filt Rate - Afr Amer 103 mL/min (>60); Globulin 3.2 g/dL (2.2-4.2); Glucose 100 mg/dL (74-106); Potassium 3.8 mmol/L (3.5-5.1); Protein, Total 7.4 g/dL (6.4-8.2); Sodium Level 138 mmol/L (136-145); Thyroid Stim Hormone (TSH) 1.83 uIU/mL (0.358-3.74)
[2020-01-04 17:00] LABS: Vitamin D,25 Hydroxy 24.7 ng/mL
== END ==
PROVIDERS: PCP Family Medicine Geriatric Medicine; Visit Provider Family Medicine Geriatric Medicine
DX: I10 Essential (primary) hypertension (principal); E55.9 Vitamin D deficiency, unspecified
CPT/HCPCS: 36415; 80053; 82306; 84443; 85025

== ENCOUNTER → 2020-07-04 12:59 | Outpatient (CLI) | payer BC, SELFPAY ==
[2019-11-01 11:30] VITALS: BMI 33.9
[2020-07-04 16:29] LABS: Absolute Lymphocyte Count 1.69 X10^3/uL (0.83-4.51); Absolute Neutrophil Count 2.7 X10^3/uL (2.0-7.7); Basophil# 0.04 X10^3/uL; Basophil% 0.8 % (0-1); Hematocrit 48.8 % (40-54); Hemoglobin 15.5 g/dL (13.0-16.5); Lymphocyte # 1.69 X10^3/ul (4.0); Lymphocyte % 33.7 % (19-41); Mean Corp Hgb Conc 31.8 g/dL (32-36); Mean Corpuscular Hgb 26.6 pg (27.0-32.0); Mean Corpuscular Volume 83.8 fL (80-94); Mean Platelet Vol. 11.2 fl (6.2-12.0); Monocyte# 0.48 X10^3/uL; Monocyte% 9.6 % (0-10); NRBC Flagged by Analyzer 0 % (0-5); Neutrophil % 53.7 % (47-70); Platelet Count 223 K/mm3 (150-450); RBC Distribution Width CV 13.6 % (11.6-14.6); RBC Distribution Width SD 41.6 fl (35.1-43.9); Red Blood Count 5.82 M/mm3 (4.6-6.2)
[2020-07-04 16:48] LABS: Vitamin D,25 Hydroxy 25.5 ng/mL
[2020-07-04 16:58] LABS: ALB/GLOB Ratio 1.3 RATIO (0.9-2.4); AST(SGOT) 34 U/L (15-37); Alanine Aminotransfer ALT/SGPT 46 U/L (16-61); Albumin, Serum 4.4 g/dL (3.2-5.0); Alkaline Phosphatase 65 U/L (45-117); Anion Gap 5 (5-15); BUN 19 mg/dL (7-18); BUN/Creat Ratio 19.8 RATIO (10-20); Calcium,Total 9.4 mg/dL (8.5-10.1); Chloride 105 mmol/L (98-107); Creatinine, Serum 0.96 mg/dL (0.70-1.30); EST Glomerular Filtration Rate 88 mL/min (>60); Est Glom Filt Rate - Afr Amer 106 mL/min (>60); Globulin 3.3 g/dL (2.2-4.2); Glucose 77 mg/dL (74-106); Potassium 3.7 mmol/L (3.5-5.1); Protein, Total 7.7 g/dL (6.4-8.2); Sodium Level 137 mmol/L (136-145); Thyroid Stim Hormone (TSH) 1.54 uIU/mL (0.358-3.74)
== END ==
PROVIDERS: PCP Family Medicine Geriatric Medicine; Visit Provider Family Medicine Geriatric Medicine
DX: E55.9 Vitamin D deficiency, unspecified (principal); I10 Essential (primary) hypertension
CPT/HCPCS: 36415; 80053; 82306; 84443; 85025

== ENCOUNTER → 2021-01-07 15:39 | Outpatient (CLI) | payer OTHER, SELFPAY ==
[2019-11-01 11:30] VITALS: BMI 33.9
[2021-01-07 17:22] LABS: Absolute Lymphocyte Count 1.52 X10^3/uL (0.83-4.51); Absolute Neutrophil Count 2.1 X10^3/uL (2.0-7.7); Basophil# 0.04 X10^3/uL; Eosinophil# 0.11 X10^3/uL; Eosinophils% 2.6 % (0-5); Hematocrit 42.8 % (40-54); Hemoglobin 14.1 g/dL (13.0-16.5); Lymphocyte # 1.52 X10^3/ul (0.83-4.51); Lymphocyte % 36.4 % (19-41); Mean Corp Hgb Conc 32.9 g/dL (32-36); Mean Corpuscular Hgb 28.2 pg (27.0-32.0); Mean Corpuscular Volume 85.6 fL (80-94); Mean Platelet Vol. 11.4 fl (6.2-12.0); Monocyte# 0.38 X10^3/uL; Monocyte% 9.1 % (0-10); NRBC Flagged by Analyzer 0 % (0-5); Neutrophil # 2.12 X10^3/uL (2.7-7.7); Neutrophil % 50.7 % (47-70); Platelet Count 186 K/mm3 (150-450); RBC Distribution Width CV 13.2 % (11.6-14.6); RBC Distribution Width SD 40.3 fl (35.1-43.9); White Blood Count 4.2 K/mm3 (4.4-11.0)
[2021-01-07 17:46] LABS: ALB/GLOB Ratio 1.2 RATIO (0.9-2.4); AST(SGOT) 62 U/L (15-37); Alanine Aminotransfer ALT/SGPT 51 U/L (16-61); Alkaline Phosphatase 53 U/L (45-117); Anion Gap 7 (5-15); BUN 18 mg/dL (7-18); BUN/Creat Ratio 18.5 RATIO (10-20); Calcium,Total 9.4 mg/dL (8.5-10.1); Chloride 106 mmol/L (98-107); Creatinine, Serum 0.98 mg/dL (0.70-1.30); EST Glomerular Filtration Rate 86 mL/min (>60); Est Glom Filt Rate - Afr Amer 104 mL/min (>60); Globulin 3.3 g/dL (2.2-4.2); Glucose 82 mg/dL (74-106); Potassium 3.6 mmol/L (3.5-5.1); Protein, Total 7.3 g/dL (6.4-8.2); Sodium Level 138 mmol/L (136-145); Thyroid Stim Hormone (TSH) 0.99 uIU/mL (0.358-3.74)
[2021-01-10 12:50] LABS: Vitamin D,25 Hydroxy 26.9 ng/mL
== END ==
PROVIDERS: PCP Family Medicine Geriatric Medicine; Visit Provider Family Medicine Geriatric Medicine
DX: E55.9 Vitamin D deficiency, unspecified (principal); I10 Essential (primary) hypertension
CPT/HCPCS: 36415; 80048; 80053; 82306; 83880; 84443; 85025; 87086

== ENCOUNTER → 2021-07-09 13:08 | Outpatient (CLI) | payer OTHER, SELFPAY ==
[2021-07-09 15:01] LABS: Absolute Lymphocyte Count 1.59 X10^3/uL (0.83-4.51); Absolute Neutrophil Count 2.8 X10^3/uL (2.0-7.7); Basophil# 0.03 X10^3/uL; Basophil% 0.6 % (0-1); Eosinophil# 0.15 X10^3/uL; Hematocrit 44.2 % (40-54); Hemoglobin 14.9 g/dL (13.0-16.5); Lymphocyte # 1.59 X10^3/ul (0.83-4.51); Lymphocyte % 31.6 % (19-41); Mean Corp Hgb Conc 33.7 g/dL (32-36); Mean Corpuscular Hgb 28.7 pg (27.0-32.0); Mean Corpuscular Volume 85.2 fL (80-94); Mean Platelet Vol. 11.1 fl (6.2-12.0); Monocyte# 0.41 X10^3/uL; Monocyte% 8.2 % (0-10); NRBC Flagged by Analyzer 0 % (0-5); Neutrophil # 2.84 X10^3/uL (2.7-7.7); Neutrophil % 56.4 % (47-70); Platelet Count 192 K/mm3 (150-450); RBC Distribution Width CV 13.2 % (11.6-14.6); RBC Distribution Width SD 40.6 fl (35.1-43.9); Red Blood Count 5.19 M/mm3 (4.6-6.2)
[2021-07-09 15:39] LABS: Vitamin D,25 Hydroxy 24.4 ng/mL
[2021-07-09 15:41] LABS: ALB/GLOB Ratio 1.1 RATIO (0.9-2.4); AST(SGOT) 41 U/L (15-37); Alanine Aminotransfer ALT/SGPT 48 U/L (16-61); Alkaline Phosphatase 57 U/L (45-117); Anion Gap 6 (5-15); BUN 19 mg/dL (7-18); BUN/Creat Ratio 21.7 RATIO (10-20); Calcium,Total 9.2 mg/dL (8.5-10.1); Chloride 107 mmol/L (98-107); Creatinine, Serum 0.88 mg/dL (0.70-1.30); EST Glomerular Filtration Rate 97 mL/min (>60); Est Glom Filt Rate - Afr Amer 117 mL/min (>60); Globulin 3.5 g/dL (2.2-4.2); Glucose 84 mg/dL (74-106); Protein, Total 7.5 g/dL (6.4-8.2); Sodium Level 140 mmol/L (136-145); Thyroid Stim Hormone (TSH) 1.32 uIU/mL (0.358-3.74)
== END ==
PROVIDERS: PCP Family Medicine Geriatric Medicine; Visit Provider Family Medicine Geriatric Medicine
DX: E55.9 Vitamin D deficiency, unspecified (principal); I10 Essential (primary) hypertension
CPT/HCPCS: 36415; 80053; 82306; 84443; 85025

== ENCOUNTER → 2021-07-09 13:42 | Outpatient (CLI) | payer OTHER, SELFPAY ==
--- NOTE | 2021-07-09 13:54 | VDUE_ITS ---
Reason For Study: Localized edema Left Proximal Left jugular vein is spontaneous, widely patent, phasic, with no intraluminal echogenicity noted. Left subclavian vein is spontaneous, widely patent, phasic, with no intraluminal echogenicity noted. Left Arm Left axillary vein is spontaneous, patent, phasic, competent, compressible and demonstrates augmentation. Left brachial vein is compressible. Left cephalic vein is compressible. Left basilic vein is compressible. Left Lower Arm Left radial vein is compressible. Left ulnar vein is compressible. Patient Safety Prelim to [place]. VL/Venous Duplex US, Unilateral Interpretation Summary Deep veins of the left upper extremity are patent and compressible segmentally. There is no evidence of deep vein thrombosis. The superficial veins of the left upper extremity, the basilic and cephalic veins, are patent and compressible. There is no evidence of left upper extremit y superficial thrombophlebitis involving the veins imaged. Ordering Physician: Claude Onofre Referring Physician: Claude Onofre Chi Performed By: Miriam Conklin RVT ?
== END ==
PROVIDERS: PCP Family Medicine Geriatric Medicine; Referring Provider Family Medicine Geriatric Medicine; Visit Provider Family Medicine Geriatric Medicine
DX: R60.0 Localized edema (principal)
CPT/HCPCS: 93971

== ENCOUNTER 2021-09-07 07:13 | Emergency (ER) | payer BC, SELFPAY ==
[2021-09-07 07:14] VITALS: BP 150/96; PULSE 98; RESP 16; TEMP 35.8; BMI 33.5
--- NOTE | 2021-09-07 07:21 | CT_ITS ---
STUDY: CT ABDOMEN AND PELVIS WITHOUT CONTRAST REASON FOR EXAM: Male, 51 years old. Kidney Stone RADIATION DOSAGE (If Supplied By Facility): CTDIvol = ( 18.73 ) mGy, DLP = ( 1085.93 ) mGycm TECHNIQUE: Transaxial images were obtained from the dome of the diaphragm to the symphysis pubis without oral contrast, and without intravenous contrast. Sagittal and coronal images were reconstructed. Individualized dose optimization techniques were used for this CT. COMPARISON: 06/09/2019 FINDINGS: The visualized lung bases are unremarkable. The visualized portions of the heart are within normal limits. There is decreased attenuation of the liver consistent with steatosis. Normal gallbladder and extrahepatic biliary system. Normal spleen. Normal pancreas. Normal bilateral adrenal glands. Bilateral small nonobstructing renal stones. 3 mm obstructing stone at the right ureterovesical junction with mild ureteral dilatation and hydronephrosis. Normal visualized stomach. Normal small intestine. Normal colon. The appendix is visualized and appears normal. Normal abdominal aorta. Normal inferior vena cava. Normal retroperitoneum. Normal urinary bladder. Normal abdominal wall. Normal osseous structures. CT/Abdomen/Pelvis without Cont IMPRESSION: 3 mm obstructing stone of the right ureterovesical junction with mild ureteral dilatation and hydronephrosis. Electronically Signed: Harris Ruth MD at 8:23 EST Tel , Service support ,
--- NOTE | 2021-09-07 07:22 | EX.ED.DYSGE1 ---
HPI History of Present Illness Chief Complaint: Flank Pain Detail of Chief Complaint: Flank pain started February 04 at 0400 Informant: patient Onset/Context/Timing Onset: Yesterday Context: Sudden Onset Timing: Continuous and Waxes and wanes Quality: Colicky Location: Initially right flank now right lower quadrant with radiation to the flank Current Severity: Moderate Maximum Severity: Severe Worsened by: Nothing Relieved by: Nothing Associated Symptoms Associated Symptoms: Nausea and vomiting Narrative Narrative: Patient is a 51-year-old male with history of hypertension on lisinopril 10 mg and multiple renal and ureteral stones who presents with right flank pain that has moved to the right lower quadrant with radiation to the right flank and right testicle. He does report nausea and vomiting. He has not taken his blood pressure med because he cannot keep it down . He has undergone lithotripsy as well as placement of stents. Last time he required visit to the emergency room for kidney stone was 2 years ago. He denies fever, chills night sweats. He denies dysuria or hematuria. He does report urgency. There is no history of trauma. He is not on anticoagulant. He denies allergy to pain medicine. He states he quit smoking 25 years ago. He did present with his spouse. Prior similar symptoms: Yes Recent Illness/Hospitalization: No [facility] Medical History (Updated 09/07/21 @ 09:[address] Luis Pringle MD) Chest pain Essential hypertension History of kidney stones Hyperlipidemia Lung nodules Mitral valve prolapse Nonrheumatic mitral valve insufficiency Shortness of breath Vitamin D deficiency Home Medications lisinopril 10 mg PO DAILY 10/28/13 [History Last Taken Unknown] atorvastatin 40 mg tablet 40 mg PO QHS 02/04/19 [History Last Taken Unknown] cholecalciferol (vitamin D3) 25 mcg (1,000 unit) capsule 1,000 unit PO DAILY 02/07/19 [History Last Taken Unknown] vitamin B complex 1 tab PO DAILY 02/07/19 [History Last Taken Unknown] aspirin 81 mg tablet,delayed release 81 mg PO DAILY 05/15/21 [History Last Taken Unknown] oxycodone-acetaminophen 1 tab PO Q6H PRN PRN 5 Days #20 tablet 09/07/21 [Rx Last Taken Unknown] Allergy/AdvReac Type Severity Reaction Status Date / Time No Known Allergies Allergy Verified 09/07/21 07:16 Family History Father Myocardial infarction, Onset Age: 43 Cancer skin and prostate Hypertension Surgical History History of carpal tunnel release of both wrists History of cystoscopy (~05/2019) History of discectomy Social History (Updated 09/07/21 @ 07:[address] Luis Pringle MD) household members: spouse Smoking Status: Former smoker quit date: 08/17/96 Smokeless tobacco user: chewing tobacco how long ago did patient quit smokin alcohol intake: never substance use type: does not use caffeine: Yes Type: carbonated beverages Number of servings: 2 ROS ROS ED Constitutional Constitutional ED: Denies chills, fever(s), subjective or sweats Eyes Eyes: Denies blurry vision or change in vision ENT ENT ED: Denies rhinorrhea or sore throat Cardiovascular Cardiovascular: Denies chest pain or palpitations Respiratory/Chest Respiratory/Chest: Denies cough, dyspnea or dyspnea on exertion Gastrointestinal Gastrointestinal: Reports abdominal pain, nausea and vomiting; Denies constipation, diarrhea or melena Genitourinary Genitourinary ED: Reports urinary frequency; Denies dysuria or hematuria Musculoskeletal Musculoskeletal: Reports back pain; Denies arthralgias, myalgias or neck pain Integumentary Denies rash Neurologic Neurologic: Denies paresthesias or weakness Endocrine Endocrinology: Denies polydipsia, polyphagia or polyuria Hematologic/Lymphatic Hematologic/Lymphatic: Reports anemia and easy bruising EXAM Physical Exam Const Vital Signs: 09/07/21 07:14 Temperature 96.4 F L Temperature Source Temporal Pulse Rate 98 Respiratory Rate 16 Blood Pressure 150/96 H Blood Pressure Mean 114 Positive well nourished, well developed and obese General Appearance ED: well developed and other Patient appears uncomfortable and cannot find position of comfort. ; Negative for NAD or pallor Nutritional Appearance: obese HEENT Reports moist mucous membranes Negative for trauma or tenderness Eyes PERRL and EOMs intact bilaterally General Eye ED: Negative for pale conjunctiva or scleral icterus Neck no lymphadenopathy, supple and no JVD Resp normal respiratory effort and clear to auscultation bilaterally Effort and Inspection: Negative for pain with movement Cardio regular rate, regular rhythm, S1 normal heart sound and no murmurs; Negative for S2 normal heart sound Rate: other Other Details: And occasional click is heard. GI normal to inspection, nondistended, normoactive bowel sounds, non-tender and non-distended Palpation: soft Back/Spine no CVA tenderness Thoracic Spine / Upper Back: Negative for thoracic spinal tenderness or paraspinal muscle tenderness Lumbar Spine / Lower Back: Negative for lumbar spinal tenderness Extremity normal to inspection General Extremety ED: Negative for edema or tenderness General Extremity: Negative for edema Neuro oriented x3 and CN's II-XII intact bilaterally Sensorium / Orientation: alert Motor Exam: strength 5/5 throughout Psych mental status grossly normal Skin no rashes or lesions noted and no wounds General Skin Exam: Negative for jaundice or pallor MDM MDM MDM Narrative Medical decision making narrative: Presents with history and physical exam consistent with obstructing ureteral stone. Since he has had pain for approximately 28 hours we will first medicate with Toradol and morphine for pain and Zofran for his nausea and vomiting. IV fluids were initiated. Since he has history of hypertension basic metabolic panel was obtained to assess renal function and CBC to assess white count and differential. CT of the abdomen to determine location and size of stone and determine if appropriate for outpatient follow-up. CT of the abdomen pelvis was reviewed by me and reveals multiple small bilateral renal calculi. There is a 3 mm distal right ureteral stone at the UVJ causing hydronephrosis and hydroureter. Patient is pain-free at the present time. Awaiting for radiology read, at time of addendum is 0750 Lab Data Attestation: I reviewed the patient's lab results. Lab results narrative: Patient's creatinine is elevated. Review of prior records indicates patient's creatinine has been elevated when he has had prior obstructing stones. Labs: Laboratory Results - last 24 hr 09/07/21 09/07/21 09/07/21 07:25 07:25 08:45 WBC 8.2 RBC 5.18 Hgb 14.7 Hct 42.8 MCV 82.6 MCH 28.4 MCHC 34.3 RDW Std Deviation 39.4 RDW Coeff of Funmilayo 13.1 Plt Count 184 MPV 10.7 Immature Gran % (Auto) 0.500 Neut % (Auto) 90.3 H Lymph % (Auto) 6.1 L Starke % (Auto) 3.0 Eos % (Auto) 0.0 Baso % (Auto) 0.1 Absolute Neuts (auto) 7.4 Absolute Lymphs (auto) 0.50 L Nucleated RBC % 0 Sodium 140 Potassium 3.8 Chloride 107 Carbon Dioxide 25.0 Anion Gap 8 BUN 23 H Creatinine 1.49 H Estim Creat Clear Calc 63.65 Est GFR (MDRD) Af Amer 64 Est GFR (MDRD) Non-Af 53 L BUN/Creatinine Ratio 15.4 Glucose 178 H Calcium 9.3 Urine Color Yellow Urine Clarity Clear Urine pH 5.0 Ur Specific [place] 1.025 Urine Protein 30 H Urine Glucose (UA) 250 H Urine Ketones Negative Urine Occult Blood 150 H Urine Nitrite Negative Urine Bilirubin Negative Urine Urobilinogen Normal Ur Leukocyte Esterase Negative Urine RBC 0-5 SEEN Urine WBC 0 SEEN Ur Squamous Epith Cells 0-5 SEEN Urine Bacteria RARE Hyaline Casts 0-5 SEEN Urine Mucus 2+ Radiography Diagnostic Testing: Clinical Impression(s) from Imaging Studies Abdomen/Pelvis CT 09/07/21 07:21 IMPRESSION: 3 mm obstructing stone of the right ureterovesical junction with mild ureteral dilatation and hydronephrosis. Electronically Signed: Harris Ruth MD at 8:23 EST Tel , Service support , Treatment and Re-Evaluation Comments:: Since patient has a elevation in his creatinine suspect is due to the obstruction. He received opiate analgesia for his pain. He was referred to Dr. Figueroa PRITCHETT who has seen him in the past. Discharge Plan Triage Chief Complaint: Flank Pain ED Provider: Luis Pringle Dx/Rx/DC Orders Clinical Impression: Hydronephrosis concurrent with and due to calculi of kidney and ureter, Acute kidney insufficiency, History of hypertension Instructions: ED Renal Insufficiency, ED Kidney Stone w/ Colic Prescriptions: New oxycodone-acetaminophen [oxycodone-acetaminophen] 1 TABLET tablet 1 tab PO Q6H PRN PRN (Reason: pain) 5 Days Qty: 20 RF: 0 No Action cholecalciferol (vitamin D3) 1,000 unit capsule 1,000 unit capsule 1,000 unit PO DAILY RF: 0 vitamin B complex [B Complex-Vitamin B12] tablet 1 tab PO DAILY RF: 0 atorvastatin 40 mg tablet 40 mg PO QHS RF: 0 aspirin [Adult Low Dose Aspirin] 81 mg tablet,delayed release (DR/EC) 81 mg PO DAILY RF: 0 lisinopril 10 MG tablet 10 mg PO DAILY RF: 0 Primary Care Provider: Claude Onofre Chi Referrals: Fletcher Pritchett MD [STAFF PHYSICIAN] - 3-5 Days Claude Onofre Chi, MD [Primary Care Provider] - Activity Restrictions/Additional Instructions: 1. Drink plenty of fluids 2. Do not take any ibuprofen or Aleve until your renal function is reassessed in 3 to 5 days. Disposition Disposition: Home, Self Care
[2021-09-07] MEDS: Morphine 4 MG/ML Syringe IV (07:32)
[2021-09-07] MEDS: Ondansetron 4 MG/2 ML Vial IV (07:32)
[2021-09-07] MEDS: Ketorolac 15 MG/ML Vial IV (07:32)
[2021-09-07 07:36] LABS: Absolute Neutrophil Count 7.4 X10^3/uL (2.0-7.7); Basophil# 0.01 X10^3/uL; Basophil% 0.1 % (0-1); Hematocrit 42.8 % (40-54); Hemoglobin 14.7 g/dL (13.0-16.5); Lymphocyte % 6.1 % (19-41); Mean Corp Hgb Conc 34.3 g/dL (32-36); Mean Corpuscular Hgb 28.4 pg (27.0-32.0); Mean Corpuscular Volume 82.6 fL (80-94); Mean Platelet Vol. 10.7 fl (6.2-12.0); Monocyte# 0.25 X10^3/uL; NRBC Flagged by Analyzer 0 % (0-5); Neutrophil # 7.42 X10^3/uL (2.7-7.7); Neutrophil % 90.3 % (47-70); POSITIVE DIFFERENTIAL YES; Platelet Count 184 K/mm3 (150-450); RBC Distribution Width CV 13.1 % (11.6-14.6); RBC Distribution Width SD 39.4 fl (35.1-43.9); Red Blood Count 5.18 M/mm3 (4.6-6.2); White Blood Count 8.2 K/mm3 (4.4-11.0)
[2021-09-07 07:42] LABS: Differential Indicated SCAN CRITERIA MET
[2021-09-07] MEDS: 0.9% Normal Saline 1,000 ML 250 ML IV (07:42)
[2021-09-07 07:47] LABS: Anion Gap 8 (5-15); BUN 23 mg/dL (7-18); BUN/Creat Ratio 15.4 RATIO (10-20); Calcium,Total 9.3 mg/dL (8.5-10.1); Chloride 107 mmol/L (98-107); Creatinine, Serum 1.49 mg/dL (0.70-1.30); EST Glomerular Filtration Rate 53 mL/min (>60); Est Glom Filt Rate - Afr Amer 64 mL/min (>60); Estimated Creatinine Clearance 63.65 ml/min; Glucose 178 mg/dL (74-106); Potassium 3.8 mmol/L (3.5-5.1); Sodium Level 140 mmol/L (136-145)
[2021-09-07 08:50] LABS: White Blood Cells 0 SEEN /hpf (0-5)
[2021-09-07 08:52] LABS: Color, Urine Yellow (Yellow); Glucose, Dipstick 250 mg/dl (Normal); Ketone-Dipstick Negative (Negative); Leukocyte Esterase-Dipstick Negative /ul (Negative); Nitrite-Dipstick Negative (Negative); Occult Blood-Urine 150 /ul (Negative); Protein-Dipstick 30 mg/dl (Negative); Specific Gravity, Urine 1.025 (1.002-1.030); Urine Bilirubin Dipstick Negative (Negative); Urine Clarity Clear (Clear); Urine Urobilinogen Normal (Normal)
[2021-09-07 09:00] LABS: Bacteria RARE /hpf (None Seen); Hyaline Cast 0-5 SEEN /lpf (0-5); Mucous, Urine 2+ /hpf (<or=2+); Red Blood Cells-Urine 0-5 SEEN /hpf (0-5); Squamous Epithelial Cells - UA 0-5 SEEN /hpf (0-5)
[2021-09-07 10:09] VITALS: BP 138/72; PULSE 72; RESP 16; O2SAT 98
== END 2021-09-07 10:10 | disposition home or self-care (01) ==
PROVIDERS: Emergency Provider Emergency Medicine; PCP Family Medicine Geriatric Medicine; Visit Provider Emergency Medicine
DX: N13.2 Hydronephrosis with renal and ureteral calculous obstruction (principal); N28.9 Disorder of kidney and ureter, unspecified; E66.9 Obesity, unspecified; I10 Essential (primary) hypertension; E78.5 Hyperlipidemia, unspecified; E55.9 Vitamin D deficiency, unspecified; Z87.891 Personal history of nicotine dependence; Z87.442 Personal history of urinary calculi; Z79.82 Long term (current) use of aspirin; Z79.899 Other long term (current) drug therapy
CPT/HCPCS: 74176; 80048; 81001; 85025; 96374; 96375; 99283; J7030; A4216; J2405

== ENCOUNTER 2021-09-12 16:48 | Outpatient (CLI) | payer BC, SELFPAY ==
[2021-09-12 18:01] LABS: Anion Gap 6 (5-15); BUN 21 mg/dL (7-18); BUN/Creat Ratio 23.1 RATIO (10-20); Calcium,Total 9.5 mg/dL (8.5-10.1); Chloride 106 mmol/L (98-107); Creatinine, Serum 0.91 mg/dL (0.70-1.30); EST Glomerular Filtration Rate 93 mL/min (>60); Est Glom Filt Rate - Afr Amer 112 mL/min (>60); Glucose 84 mg/dL (74-106); Potassium 3.8 mmol/L (3.5-5.1); Sodium Level 138 mmol/L (136-145)
== END 2021-09-12 23:59 | disposition short-term general hospital (02) ==
LOC: POLAB3 16:49
PROVIDERS: PCP Family Medicine Geriatric Medicine; Visit Provider Family Medicine Geriatric Medicine
DX: N17.9 Acute kidney failure, unspecified (principal)
CPT/HCPCS: 36415; 80048

== ENCOUNTER → 2022-01-08 | Outpatient (CLI) | payer BC, SELFPAY ==
[2022-01-08 17:18] LABS: Absolute Lymphocyte Count 1.67 X10^3/uL (0.83-4.51); Absolute Neutrophil Count 2.5 X10^3/uL (2.0-7.7); Basophil# 0.04 X10^3/uL; Basophil% 0.8 % (0-1); Eosinophil# 0.12 X10^3/uL; Eosinophils% 2.5 % (0-5); Hematocrit 42.3 % (40-54); Hemoglobin 14.4 g/dL (13.0-16.5); Lymphocyte # 1.67 X10^3/ul (0.83-4.51); Lymphocyte % 35.5 % (19-41); Mean Corpuscular Hgb 28.8 pg (27.0-32.0); Mean Corpuscular Volume 84.6 fL (80-94); Mean Platelet Vol. 11.6 fl (6.2-12.0); Monocyte% 8.5 % (0-10); NRBC Flagged by Analyzer 0 % (0-5); Neutrophil # 2.47 X10^3/uL (2.7-7.7); Neutrophil % 52.5 % (47-70); Platelet Count 183 K/mm3 (150-450); RBC Distribution Width CV 13.2 % (11.6-14.6); RBC Distribution Width SD 40.4 fl (35.1-43.9); White Blood Count 4.7 K/mm3 (4.4-11.0)
[2022-01-08 17:30] LABS: Vitamin D,25 Hydroxy 28.4 ng/mL
[2022-01-08 17:38] LABS: ALB/GLOB Ratio 1.3 RATIO (0.9-2.4); AST(SGOT) 25 U/L (15-37); Alanine Aminotransfer ALT/SGPT 41 U/L (16-61); Alkaline Phosphatase 51 U/L (45-117); Anion Gap 5 (5-15); BUN 21 mg/dL (7-18); BUN/Creat Ratio 21.6 RATIO (10-20); Calcium,Total 8.7 mg/dL (8.5-10.1); Chloride 106 mmol/L (98-107); Creatinine, Serum 0.97 mg/dL (0.70-1.30); EST Glomerular Filtration Rate 86 mL/min (>60); Est Glom Filt Rate - Afr Amer 104 mL/min (>60); Globulin 3.1 g/dL (2.2-4.2); Glucose 76 mg/dL (74-106); Potassium 3.8 mmol/L (3.5-5.1); Protein, Total 7.1 g/dL (6.4-8.2); Sodium Level 137 mmol/L (136-145); Thyroid Stim Hormone (TSH) 1.54 uIU/mL (0.358-3.74)
== END | disposition home or self-care (01) ==
LOC: POLAB3 13:13
PROVIDERS: PCP Family Medicine Geriatric Medicine; Visit Provider Family Medicine Geriatric Medicine
DX: E55.9 Vitamin D deficiency, unspecified (principal); I10 Essential (primary) hypertension
CPT/HCPCS: 36415; 80053; 82306; 84443; 85025

== ENCOUNTER → 2022-06-02 | Outpatient (CLI) | payer BC, SELFPAY ==
--- NOTE | 2022-06-02 07:38 | ECHOD_ITS ---
Reason For Study: Murmur Procedure This was a 2D Doppler, Color Flow transthoracic echocardiogram. The exam was of adequate technical quality. Exam performed in department. Left Ventricle Normal LV size. Left ventricular systolic function is normal. The estimated ejection fraction is 65 %. No evidence for diastolic dysfunction. No regional wall motion abnormalities noted. Right Ventricle Normal RV size. Normal systolic function. Atria Normal left atrium. Normal right atrium. No doppler evidence for ASD. Mitral Valve There is no mitral annular calcification. Mild diffuse mitral valve thickening. Moderate mitral valve prolapse, posterior leaflet. Moderate (2+) eccentric mitral valve insufficiency. Tricuspid Valve Normal tricuspid valve. Trivial tricuspid valve insufficiency. Right ventricular systolic pressure estimated to be 22 mmHg. Aortic Valve Trisinus/trileaflet aortic valve. Mild focal aortic valve calcification. Trivial aortic valve insufficiency. Pulmonic Valve The pulmonic valve is not well visualized. Trivial pulmonic valve insufficiency. Great Vessels Normal sized aortic root. Pericardium/Pleural No pericardial effusion. MMode/2D Measurements & Calculations LVIDd: 5.7 cm IVSd: 1.2 cm Ao root diam: 3.8 cm LVIDs: 3.0 cm LVPWd: 1.1 cm LA dimension: 3.9 cm RVDd: 3.1 cm FS: 47.9 % LAV(MOD-bp): 69.8 ml LA A4 area: 18.6 cm2 RA A4 area: 14.5 cm2 LAV(MOD-bp) Indexed: 30.3 ml/m2 LAV(MOD-sp2): 82.2 ml LAV(MOD-sp4): 52.8 ml Time Measurements MV dec time: 0.16 sec Doppler Measurements & Calculations MV E max jeff: 111.5 cm/sec Lat Peak E' Jeff: 14.1 cm/sec Med Peak E' Jeff: 10.7 cm/sec MV A max jeff: 75.6 cm/sec E/E' lat: 7.9 E/E' med: 10.4 MV E/A: 1.5 MV V2 max: 127.0 cm/sec MV P1/2t max jeff: 128.6 cm/sec Ao V2 max: 118.0 cm/sec MV max P.5 mmHg MV P1/2t: 52.4 msec Ao max P.6 mmHg MV V2 mean: 60.6 cm/sec MV dec slope: 718.4 cm/sec2 MV mean P.8 mmHg MVA(P1/2t): 4.2 cm2 MV V2 VTI: 25.5 cm LV V1 max: 90.0 cm/sec MR max jeff: 518.8 cm/sec TR max jeff: 219.1 cm/sec LV V1 max P.2 mmHg MR max P.7 mmHg TR max P.2 mmHg LV V1 mean P.8 mmHg MR mean jeff: 355.1 cm/sec LV V1 mean: 63.8 cm/sec MR mean P.5 mmHg LV V1 VTI: 17.5 cm MR VTI: 154.5 cm ECHO/Echo Complete Interpretation Summary Left ventricular systolic function is normal. The estimated ejection fraction is 65 %. Moderate mitral valve prolapse, posterior leaflet Mild diffuse mitral valve thickening. Moderate (2+) eccentric mitral valve insufficiency. Trivial tricuspid valve insufficiency. Mild focal aortic valve calcification. Trivial aortic valve insufficiency. Trivial pulmonic valve insufficiency. Right ventricular systolic pressure estimated to be 22 mmHg. No evidence for diastolic dysfunction. Ordering Physician: Gordon Bolanos Referring Physician: Claude Onofre Chi Performed By: Bruce Castaneda [facility]
== END | disposition home or self-care (01) ==
PROVIDERS: PCP Family Medicine Geriatric Medicine; Referring Provider Internal Medicine Cardiovascular Disease; Visit Provider Internal Medicine Cardiovascular Disease
DX: I34.1 Nonrheumatic mitral (valve) prolapse (principal); I34.0 Nonrheumatic mitral (valve) insufficiency
CPT/HCPCS: 93306

== ENCOUNTER → 2022-07-16 | Outpatient (CLI) | payer BC, SELFPAY ==
[2022-07-16 16:59] LABS: Absolute Lymphocyte Count 1.54 X10^3/uL (0.83-4.51); Absolute Neutrophil Count 2.6 X10^3/uL (2.0-7.7); Basophil# 0.03 X10^3/uL; Basophil% 0.6 % (0-1); Eosinophil# 0.14 X10^3/uL; Hematocrit 44.2 % (40-54); Hemoglobin 14.9 g/dL (13.0-16.5); Lymphocyte # 1.54 X10^3/ul (0.83-4.51); Lymphocyte % 32.6 % (19-41); Mean Corp Hgb Conc 33.7 g/dL (32-36); Mean Corpuscular Hgb 29.2 pg (27.0-32.0); Mean Corpuscular Volume 86.7 fL (80-94); Mean Platelet Vol. 11.3 fl (6.2-12.0); Monocyte# 0.37 X10^3/uL; Monocyte% 7.8 % (0-10); NRBC Flagged by Analyzer 0 % (0-5); Neutrophil # 2.64 X10^3/uL (2.7-7.7); Neutrophil % 55.8 % (47-70); Platelet Count 205 K/mm3 (150-450); RBC Distribution Width SD 40.6 fl (35.1-43.9); White Blood Count 4.7 K/mm3 (4.4-11.0)
[2022-07-16 17:46] LABS: ALB/GLOB Ratio 1.3 RATIO (0.9-2.4); AST(SGOT) 27 U/L (15-37); Alanine Aminotransfer ALT/SGPT 56 U/L (16-61); Alkaline Phosphatase 55 U/L (45-117); Anion Gap 7 (5-15); BUN 19 mg/dL (7-18); BUN/Creat Ratio 20.3 RATIO (10-20); Calcium,Total 8.8 mg/dL (8.5-10.1); Chloride 104 mmol/L (98-107); Creatinine, Serum 0.94 mg/dL (0.70-1.30); EST Glomerular Filtration Rate 90 mL/min (>60); Est Glom Filt Rate - Afr Amer 108 mL/min (>60); Glucose 81 mg/dL (74-106); Potassium 3.6 mmol/L (3.5-5.1); Sodium Level 139 mmol/L (136-145); Thyroid Stim Hormone (TSH) 1.81 uIU/mL (0.358-3.74)
== END | disposition home or self-care (01) ==
LOC: POLAB3 13:10
PROVIDERS: PCP Family Medicine Geriatric Medicine; Visit Provider Family Medicine Geriatric Medicine
DX: I10 Essential (primary) hypertension (principal)
CPT/HCPCS: 36415; 80053; 84443; 85025

== ENCOUNTER → 2023-01-15 | Outpatient (CLI) | payer BC, SELFPAY ==
[2023-01-15 15:08] LABS: Absolute Lymphocyte Count 1.25 X10^3/uL (0.83-4.51); Absolute Neutrophil Count 2.2 X10^3/uL (2.0-7.7); Basophil# 0.02 X10^3/uL; Basophil% 0.5 % (0-1); Eosinophil# 0.12 X10^3/uL; Eosinophils% 3.1 % (0-5); Hematocrit 42.9 % (40-54); Hemoglobin 14.5 g/dL (13.0-16.5); Lymphocyte # 1.25 X10^3/ul (0.83-4.51); Lymphocyte % 32.6 % (19-41); Mean Corp Hgb Conc 33.8 g/dL (32-36); Mean Corpuscular Hgb 28.4 pg (27.0-32.0); Mean Platelet Vol. 10.9 fl (6.2-12.0); Monocyte# 0.29 X10^3/uL; Monocyte% 7.6 % (0-10); NRBC Flagged by Analyzer 0 % (0-5); Neutrophil # 2.15 X10^3/uL (2.7-7.7); Neutrophil % 56.2 % (47-70); Platelet Count 171 K/mm3 (150-450); RBC Distribution Width CV 12.7 % (11.6-14.6); RBC Distribution Width SD 39.4 fl (35.1-43.9); Red Blood Count 5.11 M/mm3 (4.6-6.2); White Blood Count 3.8 K/mm3 (4.4-11.0)
[2023-01-15 16:09] LABS: ALB/GLOB Ratio 1.3 RATIO (0.9-2.4); AST(SGOT) 29 U/L (15-37); Alanine Aminotransfer ALT/SGPT 43 U/L (16-61); Albumin, Serum 3.9 g/dL (3.2-5.0); Alkaline Phosphatase 56 U/L (45-117); Anion Gap 8 (5-15); BUN 14 mg/dL (7-18); BUN/Creat Ratio 16.3 RATIO (10-20); Calcium,Total 8.8 mg/dL (8.5-10.1); Chloride 108 mmol/L (98-107); Creatinine, Serum 0.86 mg/dL (0.70-1.30); EST Glomerular Filtration Rate 99 mL/min (>60); Est Glom Filt Rate - Afr Amer 119 mL/min (>60); Glucose 95 mg/dL (74-106); Potassium 3.6 mmol/L (3.5-5.1); Protein, Total 6.9 g/dL (6.4-8.2); Sodium Level 140 mmol/L (136-145); Thyroid Stim Hormone (TSH) 1.09 uIU/mL (0.358-3.74)
[2023-01-15 16:42] LABS: Hepatitis C Antibody Non-Reactive (Nonreactive)
== END | disposition home or self-care (01) ==
LOC: LAB 13:47
PROVIDERS: PCP Family Medicine Geriatric Medicine; Referring Provider Family Medicine Geriatric Medicine; Visit Provider Family Medicine Geriatric Medicine
DX: I10 Essential (primary) hypertension (principal)
CPT/HCPCS: 36415; 80053; 84443; 85025; 86803

== ENCOUNTER → 2023-07-02 | Outpatient (CLI) | payer BC, SELFPAY ==
[2023-07-02 12:45] LABS: Absolute Lymphocyte Count 1.35 X10^3/uL (0.83-4.51); Absolute Neutrophil Count 2.1 X10^3/uL (2.0-7.7); Basophil# 0.03 X10^3/uL; Basophil% 0.8 % (0-1); Eosinophil# 0.13 X10^3/uL; Eosinophils% 3.3 % (0-5); Hematocrit 45.6 % (40-54); Hemoglobin 15.2 g/dL (13.0-16.5); Lymphocyte # 1.35 X10^3/ul (0.83-4.51); Mean Corp Hgb Conc 33.3 g/dL (32-36); Mean Corpuscular Hgb 28.8 pg (27.0-32.0); Mean Corpuscular Volume 86.4 fL (80-94); Monocyte# 0.33 X10^3/uL; Monocyte% 8.3 % (0-10); NRBC Flagged by Analyzer 0 % (0-5); Neutrophil # 2.12 X10^3/uL (2.7-7.7); Neutrophil % 53.3 % (47-70); Platelet Count 165 K/mm3 (150-450); RBC Distribution Width CV 13.3 % (11.6-14.6); RBC Distribution Width SD 41.4 fl (35.1-43.9); Red Blood Count 5.28 M/mm3 (4.6-6.2)
[2023-07-02 13:06] LABS: ALB/GLOB Ratio 1.2 RATIO (0.9-2.4); AST(SGOT) 30 U/L (15-37); Alanine Aminotransfer ALT/SGPT 47 U/L (16-61); Albumin, Serum 3.9 g/dL (3.2-5.0); Alkaline Phosphatase 58 U/L (45-117); Anion Gap 5 (5-15); BUN 14 mg/dL (7-18); BUN/Creat Ratio 14.7 RATIO (10-20); Calcium,Total 9.1 mg/dL (8.5-10.1); Chloride 107 mmol/L (98-107); Creatinine, Serum 0.95 mg/dL (0.70-1.30); EST Glomerular Filtration Rate 87 mL/min (>60); Est Glom Filt Rate - Afr Amer 106 mL/min (>60); Globulin 3.2 g/dL (2.2-4.2); Glucose 123 mg/dL (74-106); Potassium 3.7 mmol/L (3.5-5.1); Protein, Total 7.1 g/dL (6.4-8.2); Sodium Level 139 mmol/L (136-145); Thyroid Stim Hormone (TSH) 1.24 uIU/mL (0.358-3.74)
[2023-07-08 00:06] LABS: Lyme IgG P18 Ab Absent (.); Lyme IgG P23 Ab Absent (.); Lyme IgG P28 Ab Absent (.); Lyme IgG P30 Ab Absent (.); Lyme IgG P39 Ab Absent (.); Lyme IgG P41 Ab Absent (.); Lyme IgG P45 Ab Absent (.); Lyme IgG P58 Ab Absent (.); Lyme IgG P66 Ab Absent (.); Lyme IgG P93 Ab Absent (.); Lyme IgG WB Interpretation Negative (.); Lyme IgM P23 Ab Absent (.); Lyme IgM P39 Ab Absent (.); Lyme IgM P41 Ab Absent (.); Lyme IgM WB Interpretation Negative (.)
== END | disposition home or self-care (01) ==
LOC: POLAB3 11:31
PROVIDERS: PCP Family Medicine Geriatric Medicine; Visit Provider Family Medicine Geriatric Medicine
DX: A69.20 Lyme disease, unspecified (principal); I10 Essential (primary) hypertension
CPT/HCPCS: 36415; 80053; 84443; 85025; 86617

== ENCOUNTER → 2024-01-19 | Outpatient (CLI) | payer BC, SELFPAY ==
[2024-01-19 13:32] LABS: Absolute Neutrophil Count 2.6 X10^3/uL (2.0-7.7); Basophil# 0.03 X10^3/uL; Basophil% 0.7 % (0-1); Eosinophil# 0.09 X10^3/uL; Hemoglobin 14.7 g/dL (13.0-16.5); Mean Corp Hgb Conc 33.4 g/dL (32-36); Mean Corpuscular Hgb 28.1 pg (27.0-32.0); Mean Corpuscular Volume 84.1 fL (80-94); Mean Platelet Vol. 10.5 fl (6.2-12.0); Monocyte# 0.34 X10^3/uL; Monocyte% 7.5 % (0-10); NRBC Flagged by Analyzer 0 % (0-5); Neutrophil # 2.64 X10^3/uL (2.7-7.7); Neutrophil % 58.6 % (47-70); Platelet Count 191 K/mm3 (150-450); RBC Distribution Width CV 13.3 % (11.6-14.6); RBC Distribution Width SD 40.7 fl (35.1-43.9); Red Blood Count 5.23 M/mm3 (4.6-6.2); White Blood Count 4.5 K/mm3 (4.4-11.0)
[2024-01-19 14:03] LABS: Vitamin D,25 Hydroxy 27.5 ng/mL
[2024-01-19 14:08] LABS: ALB/GLOB Ratio 1.3 RATIO (0.9-2.4); AST(SGOT) 23 U/L (15-37); Alanine Aminotransfer ALT/SGPT 38 U/L (16-61); Albumin, Serum 4.1 g/dL (3.2-5.0); Alkaline Phosphatase 56 U/L (45-117); Anion Gap 6 (5-15); BUN 15 mg/dL (7-18); BUN/Creat Ratio 18.3 RATIO (10-20); Calcium,Total 9.4 mg/dL (8.5-10.1); Chloride 108 mmol/L (98-107); Creatinine, Serum 0.82 mg/dL (0.70-1.30); EST Glomerular Filtration Rate 104 mL/min (>60); Est Glom Filt Rate - Afr Amer 126 mL/min (>60); Globulin 3.2 g/dL (2.2-4.2); Glucose 89 mg/dL (74-106); Potassium 3.7 mmol/L (3.5-5.1); Protein, Total 7.3 g/dL (6.4-8.2); Sodium Level 139 mmol/L (136-145); Thyroid Stim Hormone (TSH) 1.35 uIU/mL (0.358-3.74)
== END | disposition home or self-care (01) ==
LOC: LAB 12:30
PROVIDERS: PCP Family Medicine Geriatric Medicine; Referring Provider Family Medicine Geriatric Medicine; Visit Provider Family Medicine Geriatric Medicine
DX: I10 Essential (primary) hypertension (principal); E55.9 Vitamin D deficiency, unspecified
CPT/HCPCS: 36415; 80053; 82306; 84443; 85025

== ENCOUNTER → 2024-07-11 | Outpatient (CLI) | payer BC, SELFPAY ==
[2024-07-11 11:00] LABS: Absolute Lymphocyte Count 1.45 X10^3/uL (0.83-4.51); Absolute Neutrophil Count 2.5 X10^3/uL (2.0-7.7); Basophil# 0.04 X10^3/uL; Basophil% 0.9 % (0-1); Eosinophil# 0.17 X10^3/uL; Eosinophils% 3.8 % (0-5); Hematocrit 46.9 % (40-54); Hemoglobin 15.9 g/dL (13.0-16.5); Lymphocyte # 1.45 X10^3/ul (0.83-4.51); Lymphocyte % 32.1 % (19-41); Mean Corp Hgb Conc 33.9 g/dL (32-36); Mean Corpuscular Hgb 28.8 pg (27.0-32.0); Monocyte# 0.35 X10^3/uL; Monocyte% 7.7 % (0-10); NRBC Flagged by Analyzer 0 % (0-5); Neutrophil % 55.3 % (47-70); Platelet Count 181 K/mm3 (150-450); RBC Distribution Width CV 13.2 % (11.6-14.6); RBC Distribution Width SD 40.7 fl (35.1-43.9); Red Blood Count 5.52 M/mm3 (4.6-6.2); White Blood Count 4.5 K/mm3 (4.4-11.0)
[2024-07-11 11:41] LABS: ALB/GLOB Ratio 1.2 RATIO (0.9-2.4); AST(SGOT) 22 U/L (15-37); Alanine Aminotransfer ALT/SGPT 34 U/L (16-61); Alkaline Phosphatase 64 U/L (45-117); Anion Gap 6 (5-15); BUN 19 mg/dL (7-18); BUN/Creat Ratio 20.2 RATIO (10-20); Calcium,Total 9.2 mg/dL (8.5-10.1); Chloride 108 mmol/L (98-107); Creatinine, Serum 0.94 mg/dL (0.70-1.30); EST Glomerular Filtration Rate 89 mL/min (>60); Est Glom Filt Rate - Afr Amer 107 mL/min (>60); Globulin 3.4 g/dL (2.2-4.2); Glucose 142 mg/dL (74-106); Protein, Total 7.4 g/dL (6.4-8.2); Sodium Level 138 mmol/L (136-145)
[2024-07-11 14:52] LABS: Hemoglobin A1c 5.9 % (3.8-5.6)
== END | disposition home or self-care (01) ==
LOC: POLAB3 10:50
PROVIDERS: PCP Family Medicine Geriatric Medicine; Visit Provider Family Medicine Geriatric Medicine
DX: I10 Essential (primary) hypertension (principal); R73.09 Other abnormal glucose
CPT/HCPCS: 36415; 80053; 83036; 84443; 85025

== ENCOUNTER → 2025-01-23 | Outpatient (CLI) | payer BC, SELFPAY ==
[2025-01-23 11:00] LABS: Absolute Lymphocyte Count 1.69 X10^3/uL (0.83-4.51); Absolute Neutrophil Count 2.7 X10^3/uL (2.0-7.7); Basophil# 0.05 X10^3/uL; Eosinophil# 0.15 X10^3/uL; Hematocrit 45.5 % (40-54); Hemoglobin 15.6 g/dL (13.0-16.5); Lymphocyte # 1.69 X10^3/ul (0.83-4.51); Lymphocyte % 34.3 % (19-41); Mean Corp Hgb Conc 34.3 g/dL (32-36); Mean Corpuscular Hgb 28.4 pg (27.0-32.0); Mean Corpuscular Volume 82.7 fL (80-94); Mean Platelet Vol. 10.8 fl (6.2-12.0); Monocyte# 0.34 X10^3/uL; Monocyte% 6.9 % (0-10); NRBC Flagged by Analyzer 0 % (0-5); Neutrophil # 2.68 X10^3/uL (2.7-7.7); Neutrophil % 54.4 % (47-70); Platelet Count 178 K/mm3 (150-450); RBC Distribution Width CV 12.9 % (11.6-14.6); RBC Distribution Width SD 38.7 fl (35.1-43.9); White Blood Count 4.9 K/mm3 (4.4-11.0)
[2025-01-23 11:56] LABS: ALB/GLOB Ratio 1.7 RATIO (0.9-2.4); AST(SGOT) 31 U/L (<=37); Alanine Aminotransfer ALT/SGPT 29 U/L (<=46); Albumin, Serum 4.5 g/dL (3.5-5.0); Alkaline Phosphatase 53 U/L (40-129); Anion Gap 11 (5-15); BUN 11 mg/dL (4-19); BUN/Creat Ratio 13.4 RATIO (10-20); Calcium,Total 9.8 mg/dL (7.6-11.0); Carbon Dioxide 23.9 mmol/L (21.0-32.0); Chloride 104 mmol/L (98-108); Creatinine, Serum 0.83 mg/dL (0.70-1.20); EST Glomerular Filtration Rate 103 (>60); Globulin 2.6 g/dL (2.2-4.2); Glucose 93 mg/dL (70-99); PSA,Total - Annual Screen 0.85 ng/mL (0.02-4.00); Potassium 4.2 mmol/L (3.3-5.1); Protein, Total 7.2 g/dL (5.9-8.4); Sodium Level 139 mmol/L (133-145); Total Bilirubin 0.44 mg/dL (0.00-1.30)
== END | disposition home or self-care (01) ==
LOC: LAB 10:41
PROVIDERS: PCP Family Medicine Geriatric Medicine; Referring Provider Family Medicine Geriatric Medicine; Visit Provider Family Medicine Geriatric Medicine
DX: Z12.5 Encounter for screening for malignant neoplasm of prostate (principal); I10 Essential (primary) hypertension
CPT/HCPCS: 36415; 80053; 84153; 84443; 85025; G0103

== ENCOUNTER 2025-07-01 21:11 | Emergency (ER) | payer BC, SELFPAY ==
[2025-07-01 21:11] VITALS: BP 154/98; PULSE 102; RESP 18; TEMP 37.3; O2SAT 99; BMI 32.4
--- NOTE | 2025-07-01 21:42 | CT_ITS ---
PROCEDURE: ABDOMEN/PELVIS WITHOUT CONT 07/01/2025 REASON FOR EXAM: RIGHT FLANK PAIN, RULE OUT STONE TECHNIQUE: Procedure Code: CTABDPEL Modality: CT Procedure: ABDOMEN/PELVIS WITHOUT CONT Noncontrast technique limits evaluation of the abdominal and pelvic viscera. Coronal and Sagittal reconstruction series were provided. One or more dose reduction techniques were used (e.g., Automated exposure control, adjustment of the mA and/or kV according to patient size, use of iterative reconstruction technique). RADIATION DOSE SUMMARY: CTDlvol: 15.84 mGy DLP: 910.52 MGycm COMPARISON: CT abdomen and pelvis September 07, 2021. FINDINGS: Lung bases: Clear. Liver: Liver steatosis. Gallbladder: Unremarkable. No biliary dilation. Spleen: Unremarkable. Pancreas: Unremarkable. Adrenals: Unremarkable. Kidneys: Bilateral kidney stones with the largest measures 6 mm at the lower pole of the right kidney. A 5 mm obstructing stone at the right ureteropelvic junction causing severe right hydronephrosis. Bladder: Unremarkable. Reproductive Organs: Unremarkable. Bowel: No bowel wall thickening. No bowel obstruction. Appendix: Unremarkable. Lymph nodes: No lymphadenopathy. Vasculature: No aneurysm. Peritoneum / Retroperitoneum: No free air or free fluid. Bones: No acute bony abnormalities. CT/Abdomen/Pelvis without Cont IMPRESSION: Bilateral kidney stones with the largest measures 6 mm at the lower pole of the right kidney. A 5 mm obstructing stone at the right ureteropelvic junction causing severe rig ht hydronephrosis. Reading Location: [facility]
--- NOTE | 2025-07-01 21:43 | EDS_ITS ---
HPI History of Present Illness Chief Complaint: Flank Pain Narrative Narrative: Patient is a 55-year-old male presenting to the emergency department for right flank pain that started around 3 PM. Patient has a past medical history of hypertension, hyperlipidemia, mitral valve prolapse and kidney stones. States that his last 1 was in August. He reports he had a stent and lithotripsy done before. Reports this feels similar to his prior kidney stones. He endorses nausea with multiple episodes of nonbloody nonbilious emesis. Denies any diarrhea or constipation. Denies any dysuria or hematuria. Denies any scrotal pain or swelling. Denies any penile discharge. Denies any fever or chills. Denies chest pain or shortness of breath. [facility] Medical History (Updated 07/01/25 @ 23:[address] Khushboo Anaya MD) Shortness of breath Chest pain Lung nodules Nonrheumatic mitral valve insufficiency Mitral valve prolapse History of kidney stones Vitamin D deficiency Essential hypertension Hyperlipidemia Home Medications Medication Instructions Recorded Last Taken Type lisinopril 10 mg tablet 10 mg PO DAILY 10/28/13 Unkn own History atorvastatin 40 mg tablet 40 mg PO QHS 02/04/19 Unknow n History cholecalciferol (vitamin D3) 25 1,000 unit PO DAILY Unknown History mcg (1,000 unit) capsule vitamin B complex (B 1 tab PO DAILY 02/07/19 Unkn own History Complex-Vitamin B12 tablet) aspirin 81 mg tablet,delayed 81 mg PO DAILY 05/15/21 U nknown History release (Adult Low Dose Aspirin) ketorolac 10 mg tablet 10 mg PO Q8H 3 days #9 tabs 07/01/25 Unknown Rx ondansetron 4 mg disintegrating 4 mg PO Q8H PRN PRN Na usea #10 tabs 07/01/25 Unknown Rx tablet tamsulosin 0.4 mg capsule (Flomax) 0.4 mg PO QHS #7 ca ps 07/01/25 Unknown Rx oxycodone-acetaminophen 5 mg-325 1 tab PO Q8H PRN pain 3 days #10 07/02/25 Unknown Rx mg tablet (Percocet) tabs Allergy/AdvReac Type Severity Reaction Status Date / Time No Known Allergies Allergy Verified 07/01/25 21:12 Family History Father Myocardial infarction, Onset Age: 43 Cancer skin and prostate Hypertension Surgical History History of cystoscopy (~05/2019) History of carpal tunnel release of both wrists History of discectomy Social History household members: spouse Smoking Status: Former smoker quit date: 08/17/96 Smokeless tobacco user: chewing tobacco how long ago did patient quit smokin alcohol intake: never substance use type: does not use caffeine: Yes Type: carbonated beverages Number of servings: 2 ROS ROS ED ROS Narrative see HPI EXAM Physical Exam Narrative Exam Narrative: Vital signs: Reviewed General: Alert and orientedx3. No acute distress. Uncomfortable appearing. HEENT: Head is normocephalic and atraumatic, sinuses nontender, pupils equal round and reactive. Nares are patent. Oropharynx and throat exams normal. Neck: Supple without lymphadenopathy nontender Cardiovascular: Regular rate and rhythm, no murmurs. No rubs or gallops. Normal S1 and S2 Respiratory: Clear to auscultation bilaterally. No wheezes, rales, rhonchi Abdominal: Soft and mildly tender to palpation in the right lower quadrant. Right CVA tenderness palpation. No left CVA tenderness to palpation. Normal bowel sounds. No guarding or rebound. Extremities: No tenderness. No bruising. Normal range of motion. Normal sensation. Skin: No rash or redness. Neurological: Cranial nerves II through XII are grossly intact. Normal strength and sensation. Normal cerebellar function The rest of the physical exam is unremarkable Const Vital Signs: 07/01/25 21:11 07/01/25 22:14 07/01/25 23:14 Temperature 99.2 F H 98.4 F 98.3 F Temperature Source Oral Oral Oral Pulse Rate 102 H 85 85 Respiratory Rate 18 16 16 Blood Pressure 154/98 H 128/88 H 130/82 H Blood Pressure Mean 116 101 98 Pulse Ox 99 94 95 Oxygen Delivery Method Room Air Room Air Room Air MDM MDM MDM Narrative Medical decision making narrative: Patient is a 55-year-old male presenting to the emergency department for right sided flank pain that feels similar to his prior kidney stones. Patient was seen and examined. Vitals are stable. Patient resting in bed comfortably no acute distress. Differential includes but is not limited to: Nephrolithiasis, pyelonephritis, UTI, musculoskeletal, less likely aortic cause of flank pain Patient given fluid bolus, zofran and toradol for symptomatic control. Labs and CT imaging were ordered. CBC with no leukocytosis and a normal hemoglobin. CMP with no significant abnormalities. Urinalysis with no evidence of infection, no leukocyte esterase, nitrites, and no significant WBCs. There is RBCs and occult blood consistent with a likely kidney stone. CT is pending at time of signout to oncoming physician. On my reevaluation of the patient around 12:15 AM, he is pain-free and has had no nausea or vomiting while being here. I will prescribe Zofran, Toradol, Percocet and Flomax for home. I anticipate likely outpatient management of his likely kidney stone. Clinical impression: Right flank pain History & Record Review Discussion w/independent historian: Patient and Significant other Additional record(s) reviewed:: Prior ED visit and Prior labs Lab Data Attestation: I reviewed the patient's lab results. Labs: Laboratory Results - last 24 hr 07/01/25 07/01/25 21:30 21:37 WBC 8.1 RBC 5.51 Hgb 15.6 Hct 47.5 MCV 86.2 MCH 28.3 MCHC 32.8 RDW Std Deviation 40.0 RDW Coeff of Funmilayo 12.9 Plt Count 195 MPV 11.6 Immature Gran % (Auto) 0.200 Neut % (Auto) 82.6 H Lymph % (Auto) 10.1 L Nye % (Auto) 5.9 Eos % (Auto) 0.7 Baso % (Auto) 0.5 Absolute Neuts (auto) 6.7 Absolute Lymphs (auto) 0.82 L Nucleated RBC % 0 Sodium 140 Potassium 4.4 Chloride 103 Carbon Dioxide 24.0 Anion Gap 12 BUN 22 H Creatinine 1.18 Estim Creat Clear Calc 88.91 Est GFR (MDRD) Non-Af 72 BUN/Creatinine Ratio 18.6 Glucose 150 H Calcium 10.2 Total Bilirubin 0.37 AST 33 ALT 34 Alkaline Phosphatase 58 Total Protein 7.5 Albumin 4.6 Globulin 2.9 Albumin/Globulin Ratio 1.6 Urine Color Yellow Urine Clarity Clear Urine pH 5.0 Ur Specific [place] 1.025 Urine Protein 30 H Urine Glucose (UA) Normal Urine Ketones Negative Urine Occult Blood 250 H Urine Nitrite Negative Urine Bilirubin Negative Urine Urobilinogen Normal Ur Leukocyte Esterase Negative Urine RBC > 100 SEEN Urine WBC 0-5 SEEN Ur Squamous Epith Cells 0-5 SEEN Urine Bacteria 2+ Urine Mucus 0 SEEN Discharge Plan Triage Chief Complaint: Flank Pain ED Provider: Khushboo Anaya Dx/Rx/DC Orders Clinical Impression: Right nephrolithiasis Instructions: ED Urine Strainer, ED Kidney Stone with Pain Prescriptions: New tamsulosin [Flomax] 0.4 mg capsule 0.4 mg PO QHS Qty: 7 0RF ketorolac 10 mg tablet 10 mg PO Q8H 3 Days Qty: 9 0RF ondansetron 4 mg tablet,disintegrating 4 mg PO Q8H PRN PRN (Reason: Nausea) Qty: 10 0RF oxycodone-acetaminophen [Percocet] 5-325 mg tablet 1 tab PO Q8H PRN (Reason: pain) 3 Days Qty: 10 0RF No Action cholecalciferol (vitamin D3) 1,000 unit capsule 1,000 unit PO DAILY vitamin B complex [B Complex-Vitamin B12] tablet 1 tab PO DAILY atorvastatin 40 mg tablet 40 mg PO QHS aspirin [Adult Low Dose Aspirin] 81 mg tablet,delayed release (DR/EC) 81 mg PO DAILY lisinopril 10 MG tablet 10 mg PO DAILY Primary Care Provider: Claude Onofre Chi Referrals: Fletcher Pritchett MD [Med Staff - Active Staff, Urology] - As soon as possible Claude Onofre Chi, MD [Primary Care Provider, Geriatrics] Activity Restrictions/Additional Instructions: I prescribed you pain medication which included Toradol which is an NSAID and Percocet. Take these every 8 hours as needed for pain control. You can take the Zofran every 8 hours as needed for nausea and vomiting. Take the Flomax nightly for the next 7 nights. I gave you follow-up with the urologist, Dr. Pritchett. You may not pass the stone and if you have continued pain that is uncontrolled with the above measures you need to return to the emergency department. Print Language: Occitan
--- OUTSIDE RECORDS SUMMARY | 2025-07-01 21:59 | XMS RPT_ITS | CCD ---
Author Organization [facility] Care Team Providers Care Numerical Control Lathe Operator Name Role Phone Dr. Talisha Manzanares Chi Primary Care Provider [phone] Dr. Talisha Manzanares Chi Referring Provider [phone] Gordon Bolanos Attending Provider Talisha Manzanares Chi Primary Care Provider [phone] FAUZIA CAMPUZANO Attending Unavailabl e TALISHA MANZANARES [facility] Primary Care Unavailable LEIGHTON TALISHA [facility] Primary Care Unavailable Dr. Talisha Manzanares MD, [facility] Primary Care Provider Leighton BROWN, Dr. Talisha Tuttle Attending Provider Dr. Talisha Manzanares MD, Chi Referring Provider Talisha Manzanares Chi Attending Unavailable Leighton Talisha Chi Primary Care Unavailable LeightonTalisha rosas Chi Attending Unavailable Leighton, Talisha Chi Referring Unavailable Leighton Talihsa Chi Primary Care Unavailable Medications Current Medications Medication Drug Class(es) Dates Sig (Normalized) Sig (Original) aspirin 81 mg delayed release oral tablet (6 sources) Platelet Aggregation Inhibitor, Nonsteroidal Anti-inflammatory Drug Start: 05-15-2021 Aspirin (Adult Low Dose Aspirin) 81 mg tablet,delayed release (DR/EC) Active 81 mg PO DAILY May 15, 2021 12:00am atorvastatin 40 mg oral tablet (8 sources) HMG-CoA Reductase Inhibitor Start: 02-04-2019 take 1 tablet by mouth at bedtime Atorvastatin 40 mg tablet Active 40 mg PO AT BEDTIME February 04, 2019 12:00am cholecalciferol 0.025 mg oral capsule (6 sources) Vitamin D Start: 02-07-2019 take 1 capsule by mouth once daily Cholecalciferol (Vitamin D3) 1,000 unit capsule Active 1000 U PO DAILY February 07, 2019 12:00am lisinopril 10 mg oral tablet (8 sources) Angiotensin Converting Enzyme Inhibitor Start: 10-28-2013 take 1 tablet by mouth once daily Lisinopril 10 MG tablet Active 10 mg PO DAILY October 28, 2013 12:00am Vitamin B Complex (B Complex-Vitamin B12) tablet (6 sources) Start: 02-07-2019 take 1 tablet by mouth once daily Vitamin B Complex (B Complex-Vitamin B12) tablet Active 1 TABLET PO DAILY February 07, 2019 1:09pm Start: 02-07-2019 Vitamin B Comp justin (B Complex-Vitamin B12) tablet Active 1 {tbl} PO DAILY February 07, 2019 12:00am Start: 02-07-2019 take 1 tablet by hyun th once daily Vitamin B Complex (B Complex-Vitamin B12) tablet Active 1 TABLET PO DAILY February 06, 2019 11:00pm Start: 02-07-2019 take 1 tablet by hyun th once daily Vitamin B Complex (B Complex-Vitamin B12) tablet Active 1 TABLET PO DAILY February 07, 2019 12:00am Completed/Discontinued Medications Medication Drug Class(es) Dates Sig (Normalized) Sig (Original) acetaminophen 325 mg / HYDROcodone bitartrate 5 mg oral tablet (18 sources) Opioid Agonist Start: 06-10-2019 End: 06-16-2019 Hydrocodone-Acetami nophen 1 EACH tablet Discontinued 1 NMA PO EVERY 4 HOURS NEEDED as needed for Pain Score 1-10/10 14 June 10, 2019 June 14, 2019 12:00am June 16, 2019 12:11am Start: 06-10-2019 End: 06-16-2019 Hydrocodone-Acetaminophen Di scontinued 1 EACH PO EVERY 4 HOURS NEEDED 14 June 10, 2019 June 15, 2019 11:11pm Start: 05-19-2019 End: 05-25-2019 Hydrocodone-Acetaminophen 1 TABLET tablet Discontinued 1 {tbl} PO EVERY 4 HOURS NEEDED as needed for Pain 10 May 19, 2019 May 20, 2019 12:00am May 25, 2019 12:09am Start: 05-19-2019 End: 05-25-2019 take 1 tablet by mouth every four hours as needed Hydrocodone-Acetaminophen Discontinued 1 TABLET PO EVERY 4 HOURS NEEDED 10 May 19, 2019 May 24, 2019 11:09pm Start: 10-28-2013 End: 02-03-2019 Hydrocodone-Acetaminophen 1 TABLET tablet Discontinued 2 {tbl} PO EVERY 6 HOURS NEEDED as needed for Pain October 28, 2013 12:00am February 03, 2019 4:50pm Start: 10-28-2013 End: 02-03-2019 take 2 tablets by mouth every six hours as needed Hydrocodone-Acetaminophen Discontinued 2 TABLET PO EVERY 6 HOURS NEEDED October 27, 2013 11:00pm February 03, 2019 3:50pm acetaminophen 325 mg / oxyCODONE hydrochloride 5 mg oral tablet (12 sources) Opioid Agonist Start: 09-07-2021 End: 05-19-2022 Oxycodone-Acetaminophen 1 TABLET tablet Discontinued 1 {tbl} PO EVERY 6 HOURS NEEDED as needed for pain 03 01September 07, 2021 May 19, 2022 2:33pm Start: 09-07-2021 End: 05-19-2022 take 1 tablet by mouth every six hours as needed Oxycodone-Acetaminophen Discontinued 1 TABLET PO EVERY 6 HOURS NEEDED 03 01September 07, 2021 May 19, 2022 1:33pm Start: 06-09-2019 End: 06-16-2019 Oxycodone-Acetaminophen 1 TA BLET tablet Discontinued 1 {tbl} PO EVERY 6 HOURS NEEDED as needed for Pain 12 June 09, 2019 June 11, 2019 12:00am June 16, 2019 12:10am Start: 06-09-2019 End: 06-16-2019 take 1 tablet by mouth every six hours as needed Oxycodone-Acetaminophen Discontinued 1 TABLET PO EVERY 6 HOURS NEEDED 12 June 09, 2019 June 15, 2019 11:10pm ciprofloxacin 500 mg oral tablet (6 sources) Quinolone Antimicrobial Start: 06-10-2019 End: 11-01-2019 take 1 tablet by mouth twice daily Ciprofloxacin Hcl 500 MG tablet Discontinued 500 mg PO TWICE A DAY June 10, 2019 12:00am November 01, 2019 11:32am fluorescein sodium 2.5 mg/ml / proparacaine hydrochloride 5 mg/ml ophthalmic solution (2 sources) Diagnostic Dye, Local Anesthetic Start: 07-11-2024 End: 07-11-2024 fluorescein-propara luke 1 Drop eye drops Start: 07-11-2024 End: 07-11-2024 1 Drop, BOTH EYES, ONCE, 1 d ose, On Thu07/11/24 at 1400, FOR THE EYE. REFRIGERATE ondansetron 4 mg disintegrating oral tablet (12 sources) Serotonin-3 Receptor Antagonist Start: 06-09-2019 End: 11-01-2019 take 1 tablet by mouth every eight hours as needed for nausea Ondansetron 4 MG tablet Discontinued 4 mg PO EVERY 8 HOURS NEEDED as needed for Nausea June 09, 2019 12:00am November 01, 2019 11:33am Start: 10-28-2013 End: 02-03-2019 take 4 mg by mouth every eight hours as needed for nausea Ondansetron Hcl 8 MG tablet Discontinued 4 mg PO EVERY 8 HOURS NEEDED as needed for Nausea/Vomiting October 28, 2013 12:00am February 03, 2019 4:51pm Start: 10-28-2013 End: 02-03-2019 take 4 mg by mouth every eight hours as needed Ondansetron Hcl Discontinued 4 MG PO EVERY 8 HOURS NEEDED October 27, 2013 11:00pm February 03, 2019 3:51pm phenazopyridine hydrochloride 100 mg oral tablet (6 sources) Start: 06-10-2019 End: 11-01-2019 take 1 tablet by mouth three times daily Phenazopyridine 100 MG tablet Discontinued 100 mg PO THREE TIMES A DAY June 10, 2019 12:00am November 01, 2019 11:33am rosuvastatin calcium 20 mg oral tablet (6 sources) HMG-CoA Reductase Inhibitor Start: 10-28-2013 End: 02-03-2019 take 1 tablet by mouth once daily Rosuvastatin 20 MG tablet Discontinued 20 mg PO DAILY October 28, 2013 12:00am February 03, 2019 4:51pm tamsulosin hydrochloride 0.4 mg oral capsule (6 sources) alpha-Adrenergic Mirza Start: 06-09-2019 End: 11-01-2019 take 1 capsule by mouth once daily Tamsulosin 0.4 MG capsule Discontinued 0.4 mg PO DAILY June 09, 2019 12:00am November 01, 2019 11:33am tropicamide 10 mg/ml ophthalmic solution (2 sources) Anticholinergic Start: 07-11-2024 End: 07-11-2024 tropicamide 1 % 1 Drop (MYDRIACYL) Start: 07-11-2024 End: 07-11-2024 1 Drop, BOTH EYES, ONCE, 1 d ose, On Thu07/11/24 at 1400, FOR THE EYE Problems Problem Classification Problem Date Documented Date Episodic/Chronic Blindness and vision defects (3 sources) Bilateral myopia of eyes; Translations: [Myopia, bilateral] 07-11-2024 Episodic Calculus of urinary tract (6 sources) Ureteric stone; Translations: [Calculus of ureter] 06-10-2019 Episodic Disorders of lipid metabolism (8 sources) Hyperlipidemia; Translations: [Hyperlipidemia, unspecified] Chronic Essential hypertension (9 sources) Essential hypertension; Translations: [Essential (primary) hypertension] Onset: 08-08-2024 Chronic Headache; including migraine (1 source) Headache; Translations: [Headache, unspecified headache type] 01-07-2024 Episodic Heart valve disorders (16 sources) Non-rheumatic mitral regurgitation ; Translations: [Nonrheumatic mitral (valve) insufficiency] Chronic Neoplasms of unspecified nature or uncertain behavior (1 source) Lesion of eyelid; Translations: [Neoplasm of unspecified behavior of bone, soft tissue, and skin] 07-11-2024 Episodic Nonspecific chest pain (12 sources) Atypical chest pain; Translations: [Other chest pain] 05-15-2021 Episodic Other circulatory disease (6 sources) H/O: hypertension; Translations: [Personal history of other diseases of the circulatory system] 09-15-2021 Episodic Other diseases of kidney and ureters (6 sources) Hydronephrosis co-occurrent and due to calculus of kidney and ureter; Translations: [Hydronephrosis with renal and ureteral calculous obstruction] 09-15-2021 Episodic Other diseases of kidney and ureters (6 sources) Acute renal insufficiency; Translations: [Disorder of kidney and ureter, unspecified] 09-15-2021 Episodic Other eye disorders (1 source) Bilateral vitreous floaters; Translations: [Other vitreous opacities, bilateral] 07-11-2024 Chronic Other lower respiratory disease (6 sources) Dyspnea; Translations: [Shortness of breath] 11-01-2019 Episodic Other screening for suspected conditions (not mental disorders or infectious disease) (1 source) Encounter for screening for malignant neoplasm of prostate; Translations: [Encounter for screening for malignant neoplasm of prostate] Onset: 01-27-2025 Episodic Other upper respiratory disease (1 source) Nasal congestion; Translations: [Nasal congestion] 01-07-2024 Episodic Other upper respiratory disease (1 source) Nasal discharge; Translations: [Other specified disorders of nose and nasal sinuses] 01-07-2024 Episodic Results Test Name Value Interpretation Reference Range Facility Absolute lymphocyte countOrd ered By: Talisha Manzanares on 01-23-2025 Lymphocytes Auto (Unsp spec) [#/Vol] 1.69 10*3/uL 0.83-4.51 [facility] Absolute neutrophil countOrd ered By: Talisha Manzanares on 01-23-2025 Neutrophils (Bld) [#/Vol] 2.7 10*3/uL 2.0-7.7 [facility] Anion gap in Serum or Plasma Ordered By: Talisha Manzanares on 01-23-2025 Anion gap [Moles/Vol] 11 mmol/L 5-15 [facility] Automated blood erythrocyte countOrdered By: Talisha Manzanares on 01-23-2025 RBC (Bld) [#/Vol] 5.50 10*6/uL Normal 4.6-6.2 [facility] Comment on above: Performed By: #### L [id number], L100.0100, [id number], [id number] #### [facility] [address] [place], [place], [id number] Automated blood hematocrit ( percentage)Ordered By: Talisha Manzanares on 01-23-2025 Hematocrit (Bld) [Volume fraction] 45.5 % Normal 40-54 [facility] Comment on above: Performed By: #### L [id number], L100.0100, [id number], [id number] #### [facility] [address] [place], [address] Automated lymphocyte count a s percentage of total leukocytesOrdered By: Talisha Manzanares on 01-23-2025 Lymphocytes/100 WBC Auto (Unsp spec) 34.3 % 19-41 [facility] BUN/creatinine ratioOrdered By: Talisha Manzanares on 01-23-2025 Urea nitrogen/Creatinine [Mass ratio] 13.4 mg/mg 10-20 [facility] Basophil percentageOrdered B y: Talisha Manzanares on 01-23-2025 Basophils/100 WBC (Bld) 1.0 % Normal 0-1 [facility] Comment on above: Performed By: #### L [id number], L100.0100, [id number], [id number] #### [facility] [address] [place], [address] Bilirubin, totalOrdered By: Talisha Manzanares on 01-23-2025 Bilirubin [Mass/Vol] 0.44 mg/dL 0.00-1.30 [facility] CBC W/Diff, Automatedon Absolute Lymph 1.69 X10 3/uL Normal 0.83-4.51 [facility] Comment on above: Performed By: #### L [id number], L100.0100, [id number], [id number] #### [facility] [address] [place], [address] Absolute Neut 2.7 X10 3/uL Normal 2.0-7.7 [facility] Comment on above: Performed By: #### L [id number], L100.0100, [id number], [id number] #### [facility] [address] [place], [address] IG% 0.400 Normal 0.0-0.9 [facility] Comment on above: Result Comment: IG% - Immature Granulocytes (promyelocytes, myelocytes and metamyelocytes) > 1% indicates that a LEFT SHIFT is Present. Performed By: #### L [id number], L100.0100, [id number], [id number] #### [facility] [address] [place], [address] Lymphocytes/100 WBC (Bld) 34.3 % Normal 19-41 [facility] Comment on above: Performed By: #### L [id number], L100.0100, [id number], [id number] #### [facility] [address] [place], [address] Nucleated RBC (Bld) [#/Vol] 0 10*3/uL Normal 0-5 [facility] Comment on above: Performed By: #### L [id number], L100.0100, [id number], [id number] #### [facility] [address] [place], [address] RDW SD 38.7 fl Normal 35.1-43.9 [facility] Comment on above: Performed By: #### L [id number], L100.0100, [id number], [id number] #### [facility] [address] [place], [address] Carbon dioxide, total [Moles /volume] in Central venous bloodOrdered By: Talisha Manzanares on 01-23-2025 CO2 [Moles/Vol] 23.9 mmol/L 21.0-32.0 [facility] Chloride assayOrdered By: Terry Manzanares on 01-23-2025 Chloride [Moles/Vol] 104 mmol/L 98-108 [facility] Comprehensive Metabolic Prof ilon 01-23-2025 Albumin [Mass/Vol] 4.5 g/dL Normal 3.5-5.0 [facility] Comment on above: Performed By: #### L [id number], L100.0100, [id number], [id number] #### [facility] [address] [place], [address] Albumin/Globulin [Mass ratio] 1.7 {ratio} Normal 0.9-2.4 [facility] Comment on above: Performed By: #### L [id number], L100.0100, [id number], [id number] #### [facility] [address] [place], [address] ALK PHOS 53 U/L Normal 40-129 [facility] Comment on above: Performed By: #### L [id number], L100.0100, [id number], [id number] #### [facility] [address] [place], [address] ALT [Catalytic activity/Vol] 29 U/L Normal <=46 [facility] Comment on above: Performed By: #### L [id number], L100.0100, [id number], [id number] #### [facility] [address] [place], [address] AST [Catalytic activity/Vol] 31 U/L Normal <=37 [facility] Comment on above: Performed By: #### L [id number], L100.0100, [id number], [id number] #### [facility] [address] [place], [address] Bilirubin [Mass/Vol] 0.44 mg/dL Normal 0.00-1.30 [facility] Comment on above: Performed By: #### L [id number], L100.0100, [id number], [id number] #### [facility] [address] [place], [address] BUN/CRE 13.4 RATIO Normal 10-20 [facility] Comment on above: Performed By: #### L [id number], L100.0100, [id number], [id number] #### [facility] [address] [place], [address] Calcium [Mass/Vol] 9.8 mg/dL Normal 7.6-11.0 [facility] Comment on above: Performed By: #### L [id number], L100.0100, [id number], [id number] #### [facility] [address] [place], [address] Chloride [Moles/Vol] 104 mmol/L Normal 98-108 [facility] Comment on above: Performed By: #### L [id number], L100.0100, [id number], [id number] #### [facility] [address] [place], [address] CO2 [Moles/Vol] 23.9 mmol/L Normal 21.0-32.0 [facility] Comment on above: Performed By: #### L [id number], L100.0100, [id number], [id number] #### [facility] [address] [place], [address] Creatinine [Mass/Vol] 0.83 mg/dL Normal 0.70-1.20 [facility] Comment on above: Performed By: #### L [id number], L100.0100, [id number], [id number] #### [facility] [address] [place], [address] GAP 11 Normal 5-15 [facility] Comment on above: Performed By: #### L [id number], L100.0100, [id number], [id number] #### [facility] [address] [place], [address] GFR/1.73 sq M.predicted among non-blacks MDRD (S/P/Bld) [Vol rate/Area] 103 mL/min/{1.73_m2} Normal >60 [facility] Comment on above: Result Comment: mL/m in/1.73m2 CKD-EPI Creatinine Equation (2020) Performed By: #### L [id number], L100.0100, [id number], [id number] #### [facility] [address] [place], [address] Globulin (S) [Mass/Vol] 2.6 g/dL Normal 2.2-4.2 [facility] Comment on above: Performed By: #### L [id number], L100.0100, [id number], [id number] #### [facility] [address] [place], [address] Glucose [Mass/Vol] 93 mg/dL Normal 70-99 [facility] Comment on above: Performed By: #### L 501.9910, L100.0100, [id number], [id number] #### [facility] [address] [place], [address] Potassium [Moles/Vol] 4.2 mmol/L Normal 3.3-5.1 [facility] Comment on above: Performed By: #### L 501.9910, L100.0100, [id number], [id number] #### [facility] [address] [place], [address] Sodium [Moles/Vol] 139 mmol/L Normal 133-145 [facility] Comment on above: Performed By: #### L [id number], L100.0100, [id number], [id number] #### [facility] [address] [place], [address] T PROT 7.2 g/dL Normal 5.9-8.4 [facility] Comment on above: Performed By: #### L [id number], L100.0100, [id number], [id number] #### [facility] [address] [place], [address] Urea nitrogen [Mass/Vol] 11 mg/dL Normal 4-19 [facility] Comment on above: Performed By: #### L 501.9910, L100.0100, [id number], [id number] #### [facility] [address] [place], [address] Eosinophil percentageOrdered By: Talisha Manzanares on 01-23-2025 Eosinophils/100 WBC (Bld) 3.0 % Normal 0-5 [facility] Comment on above: Performed By: #### L [id number], L100.0100, [id number], [id number] #### [facility] [address] [place], [address] Erythrocyte distribution wid th ratioOrdered By: Talisha Manzanares on 01-23-2025 Erythrocyte distribution width (RBC) [Ratio] 12.9 % Normal 11.6-14.6 [facility] Comment on above: Performed By: #### L [id number], L100.0100, [id number], [id number] #### [facility] [address] [place], [address] Erythrocyte distribution wid th standard deviationOrdered By: Talisha Manzanares on 01-23-2025 Erythrocyte distribution width (RBC) [Ratio] 38.7 fl 35.1-43.9 [facility] Glomerular filtration rate ( GFR) estimation/1.73 sq m using serum, plasma, or whole bOrdered By: Talisha Manzanares on 01-23-2025 GFR/1.73 sq M.predicted among non-blacks MDRD (S/P/Bld) [Vol rate/Area] 103 mL/min/{1.73_m2} >60 [facility] Comment on above: mL/min/1.73m2 CKD-EP I Creatinine Equation (2020) Hemoglobin measurementOrdere d By: Talisha Manzanares on 01-23-2025 Hemoglobin (Bld) [Mass/Vol] 15.6 g/dL Normal 13.0-16.5 [facility] Comment on above: Performed By: #### L [id number], L100.0100, L501.9520, [id number] #### [facility] [address] [place], [address] Immature granulocytes/100 WB C Auto (Bld)Ordered By: Talisha Manzanares on 01-23-2025 Immature granulocytes/100 WBC (Bld) 0.400 % 0.0-0.9 [facility] Comment on above: IG% - Immature Granu locytes (promyelocytes, myelocytes and metamyelocytes) > 1% indicates that a LEFT SHIFT is Present. Laboratory - Chemistry and C hemistry - challengeOrdered By: Talisha Manzanares on 01-23-2025 AST [Catalytic activity/Vol] 31 U/L <38 [facility] MCV (mean corpuscular volume ) determinationOrdered By: Talisha Manzanares on 01-23-2025 MCV (RBC) [Entitic vol] 82.7 fL Normal 80-94 [facility] Comment on above: Performed By: #### L [id number], L100.0100, [id number], [id number] #### [facility] [address] [place], [address] Mean corpuscular hemoglobin (MCH) determinationOrdered By: Talisha Manzanares on 01-23-2025 MCH (RBC) [Entitic mass] 28.4 pg Normal 27.0-32.0 [facility] Comment on above: Performed By: #### L [id number], L100.0100, [id number], [id number] #### [facility] [address] [place], [address] Mean corpuscular hemoglobin concentration (MCHC) determinationOrdered By: Talisha Manzanares on 01-23-2025 MCHC (RBC) [Mass/Vol] 34.3 g/dL Normal 32-36 [facility] Comment on above: Performed By: #### L [id number], L100.0100, [id number], [id number] #### [facility] [address] [place], [address] Mean platelet volume determi nationOrdered By: Talisha Manzanares on 01-23-2025 Platelet mean volume (Bld) [Entitic vol] 10.8 fL Normal 6.2-12.0 [facility] Comment on above: Performed By: #### L [id number], L100.0100, [id number], [id number] #### [facility] [address] [place], [address] Monocyte percentageOrdered B y: Talisha Manzanares on 01-23-2025 Monocytes/100 WBC (Bld) 6.9 % Normal 0-10 [facility] Comment on above: Performed By: #### L [id number], L100.0100, [id number], [id number] #### [facility] [address] [place], [address] Neutrophil percentageOrdered By: Talisha Manzanares on 01-23-2025 Neutrophils/100 WBC (Bld) 54.4 % Normal 47-70 [facility] Comment on above: Performed By: #### L [id number], L100.0100, [id number], [id number] #### [facility] [address] [place], [address] Nucleated red blood cell per centageOrdered By: Talisha Manzanares on 01-23-2025 Nucleated RBC/100 WBC (Bld) [Ratio] 0 % 0-5 [facility] PSA,Total - Annual Screenon 01-23-2025 PSA,TOT SCREEN 0.85 ng/mL Normal 0.02-4.00 [facility] Comment on above: Result Comment: This test was performed using the [facility] tPSA method. Measured values of a patient??sample can vary depending on the testing procedure used. PSA values determined on patient samples by different testing procedures cannot be used interchangeably. If there is a change in PSA assays while monitoring therapy, sequential testing should be performed to confirm baseline values. Performed By: #### L [id number], L100.0100, L501.9520, [id number] #### [facility] [address] [place], [address] Platelet countOrdered By: Terry Manzanares on 01-23-2025 Platelets (Bld) [#/Vol] 178 10*3/uL Normal 150-450 [facility] Comment on above: Performed By: #### L [id number], L100.0100, [id number], [id number] #### [facility] [address] [place], [address] Potassium measurement (mass/ volume)Ordered By: Talisha Manzanares on 01-23-2025 Potassium (Unsp spec) [Mass/Vol] 4.2 mmol/L 3.3-5.1 [facility] Serum creatinine measurement (mass/volume)Ordered By: Talisha Manzanares on 01-23-2025 Creatinine [Mass/Vol] 0.83 mg/dL 0.70-1.20 [facility] Serum globulin measurementOr dered By: Talisha Manzanares on 01-23-2025 Globulin (S) [Mass/Vol] 2.6 g/dL 2.2-4.2 [facility] Serum glucose measurement (m ass/volume)Ordered By: Talisha Manzanares 01-23-2025 Glucose [Mass/Vol] 93 mg/dL 70-99 [facility] Serum or plasma alanine garcia otransferase (ALT) measurementOrdered By: Talisha Manzanares 01-23-2025 ALT [Catalytic activity/Vol] 29 U/L <47 [facility] Serum or plasma albumin luis urement (mass/volume)Ordered By: Talisha Manzanares 01-23-2025 Albumin [Mass/Vol] 4.5 g/dL 3.5-5.0 [facility] Serum or plasma albumin/glob ulin mass ratioOrdered By: Talisha Manzanares 01-23-2025 Albumin/Globulin [Mass ratio] 1.7 {ratio} 0.9-2.4 [facility] Serum or plasma alkaline tariq sphatase measurementOrdered By: Talisha Manzanares 01-23-2025 ALP [Catalytic activity/Vol] 53 U/L 40-129 [facility] [facility] Serum or plasma calcium luis urement (mass/volume)Ordered By: Talisha Manzanares 01-23-2025 Calcium [Mass/Vol] 9.8 mg/dL 7.6-11.0 [facility] Serum or plasma urea nitroge n measurement (mass/volume)Ordered By: Talisha Manzanares 01-23-2025 Urea nitrogen [Mass/Vol] 11 mg/dL 4-19 [facility] Sodium levelOrdered By: Talisha Manzanares 01-23-2025 Sodium [Moles/Vol] 139 mmol/L 133-145 [facility] TSH DL <= 0.005 mIU/L QnOrde red By: Talisha Manzanares on 01-23-2025 TSH Qn 1.960 uIU/mL 0.300-4.200 [facility] Thyroid Stim Hormone (TSH)on 01-23-2025 TSH 1.960 uIU/mL Normal 0.300-4.200 [facility] Comment on above: Performed By: #### L 501.9910, L100.0100, L501.9520, L500.4050 #### [facility] [address] [place], [address] Total proteinOrdered By: Talisha Manzanares on 01-23-2025 Protein [Mass/Vol] 7.2 g/dL 5.9-8.4 [facility] White blood cell (WBC) count Ordered By: Talisha Manzanares on 01-23-2025 WBC (Bld) [#/Vol] 4.9 10*3/uL Normal 4.4-11.0 [facility] Comment on above: Performed By: #### L [id number], L100.0100, L501.9520, L500.4050 #### [facility] [address] [place], [address] CBC W/Diff, Automatedon 11-2 Absolute Lymph 1.45 X10 3/uL Normal 0.83-4.51 [facility] Comment on above: Performed By: #### L [id number], [id number], L500.4050, L100.0100 #### [facility] [address] [place], [address] Absolute Neut 2.5 X10 3/uL Normal 2.0-7.7 [facility] Comment on above: Performed By: #### L [id number], [id number], L500.4050, L100.0100 #### [facility] [address] [place], [address] Basophils/100 WBC (Bld) 0.9 % Normal 0-1 [facility] Comment on above: Performed By: #### L [id number], [id number], L500.4050, L100.0100 #### [facility] [address] [place], [address] Eosinophils/100 WBC (Bld) 3.8 % Normal 0-5 [facility] Comment on above: Performed By: #### L [id number], [id number], L500.4050, L100.0100 #### [facility] [address] [place], [address] Erythrocyte distribution width (RBC) [Ratio] 13.2 % Normal 11.6-14.6 [facility] Comment on above: Performed By: #### L [id number], [id number], L500.4050, L100.0100 #### [facility] [address] [place], [address] Hematocrit (Bld) [Volume fraction] 46.9 % Normal 40-54 [facility] Comment on above: Performed By: #### L [id number], [id number], L500.4050, L100.0100 #### [facility] [address] [place], [address] Hemoglobin (Bld) [Mass/Vol] 15.9 g/dL Normal 13.0-16.5 [facility] Comment on above: Performed By: #### L [id number], [id number], L500.4050, L100.0100 #### [facility] [address] [place], [address] IG% 0.200 Normal 0.0-0.9 [facility] Comment on above: Result Comment: IG% - Immature Granulocytes (promyelocytes, myelocytes and metamyelocytes) > 1% indicates that a LEFT SHIFT is Present. Performed By: #### L [id number], [id number], L500.4050, L100.0100 #### [facility] [address] [place], [address] Lymphocytes/100 WBC (Bld) 32.1 % Normal 19-41 [facility] Comment on above: Performed By: #### L [id number], [id number], L500.4050, L100.0100 #### [facility] [address] [place], [address] MCH (RBC) [Entitic mass] 28.8 pg Normal 27.0-32.0 [facility] Comment on above: Performed By: #### L [id number], [id number], L500.4050, L100.0100 #### [facility] [address] [place], [address] MCHC (RBC) [Mass/Vol] 33.9 g/dL Normal 32-36 [facility] Comment on above: Performed By: #### L [id number], [id number], L500.4050, L100.0100 #### [facility] [address] [place], [address] MCV (RBC) [Entitic vol] 85.0 fL Normal 80-94 [facility] Comment on above: Performed By: #### L [id number], [id number], L500.4050, L100.0100 #### [facility] [address] [place], [address] Monocytes/100 WBC (Bld) 7.7 % Normal 0-10 [facility] Comment on above: Performed By: #### L 501.9985, [id number], L500.4050, L100.0100 #### [facility] [address] [place], [address] Neutrophils/100 WBC (Bld) 55.3 % Normal 47-70 [facility] Comment on above: Performed By: #### L 501.9985, [id number], L500.4050, L100.0100 #### [facility] [address] [place], [address] Nucleated RBC (Bld) [#/Vol] 0 10*3/uL Normal 0-5 [facility] Comment on above: Performed By: #### L [id number], [id number], L500.4050, L100.0100 #### [facility] [address] [place], [address] Platelet mean volume (Bld) [Entitic vol] 11.0 fL Normal 6.2-12.0 [facility] Comment on above: Performed By: #### L [id number], [id number], L500.4050, L100.0100 #### [facility] [address] [place], [address] Platelets (Bld) [#/Vol] 181 10*3/uL Normal 150-450 [facility] Comment on above: Performed By: #### L [id number], [id number], L500.4050, L100.0100 #### [facility] [address] [place], [address] RBC (Bld) [#/Vol] 5.52 10*6/uL Normal 4.6-6.2 [facility] Comment on above: Performed By: #### L [id number], [id number], L500.4050, L100.0100 #### [facility] [address] [place], [address] RDW SD 40.7 fl Normal 35.1-43.9 [facility] Comment on above: Performed By: #### L 501.9985, [id number], L500.4050, L100.0100 #### [facility] [address] [place], [address] WBC (Bld) [#/Vol] 4.5 10*3/uL Normal 4.4-11.0 [facility] Comment on above: Performed By: #### L 501.9985, [id number], L500.4050, L100.0100 #### [facility] [address] [place], [address] Comprehensive Metabolic Prof ilon 07-11-2024 Albumin [Mass/Vol] 4.0 g/dL Normal 3.2-5.0 [facility] Comment on above: Performed By: #### L [id number], [id number], L500.4050, L100.0100 #### [facility] [address] [place], [address] Albumin/Globulin [Mass ratio] 1.2 {ratio} Normal 0.9-2.4 [facility] Comment on above: Performed By: #### L [id number], [id number], L500.4050, L100.0100 #### [facility] [address] [place], [address] ALK P 64 U/L Normal 45-117 [facility] Comment on above: Performed By: #### L [id number], [id number], L500.4050, L100.0100 #### [facility] [address] [place], [address] ALT [Catalytic activity/Vol] 34 U/L Normal 16-61 [facility] Comment on above: Performed By: #### L [id number], [id number], L500.4050, L100.0100 #### [facility] [address] [place], [address] AST [Catalytic activity/Vol] 22 U/L Normal 15-37 [facility] Comment on above: Performed By: #### L 501.9985, [id number], L500.4050, L100.0100 #### [facility] [address] [place], [address] Bilirubin [Mass/Vol] 0.50 mg/dL Normal 0.20-1.00 [facility] Comment on above: Result Comment: For patients on eltrombopag therapy, use of Dimension [place] TBIL is not recommended. Performed By: #### L [id number], [id number], L500.4050, L100.0100 #### [facility] [address] [place], [address] BUN/CRE 20.2 RATIO High 10-20 [facility] Comment on above: Performed By: #### L 501.9985, [id number], L500.4050, L100.0100 #### [facility] [address] [place], [address] CA,Total 9.2 mg/dL Normal 8.5-10.1 [facility] Comment on above: Performed By: #### L 501.9985, [id number], L500.4050, L100.0100 #### [facility] [address] [place], [address] Chloride [Moles/Vol] 108 mmol/L High 98-107 [facility] Comment on above: Performed By: #### L 501.9985, [id number], L500.4050, L100.0100 #### [facility] [address] [place], [address] CO2 [Moles/Vol] 24.0 mmol/L Normal 21.0-32.0 [facility] Comment on above: Performed By: #### L 501.9985, [id number], L500.4050, L100.0100 #### [facility] [address] [place], [address] Creatinine [Mass/Vol] 0.94 mg/dL Normal 0.70-1.30 [facility] Comment on above: Result Comment: The validity of the calculated GFR GFRAA in patients over 70 years has not been determined. Clinical correlation is essential. Performed By: #### L 501.9985, [id number], L500.4050, L100.0100 #### [facility] [address] [place], [address] EST GFR - AA 107 mL/min Normal >60 [facility] Comment on above: Result Comment: Afri can [place] GFR Calc Performed By: #### L [id number], [id number], L500.4050, L100.0100 #### [facility] [address] [place], [address] GAP 6 Normal 5-15 [facility] Comment on above: Performed By: #### L 501.9985, [id number], L500.4050, L100.0100 #### [facility] [address] [place], [address] GFR/1.73 sq M.predicted among non-blacks MDRD (S/P/Bld) [Vol rate/Area] 89 mL/min/{1.73_m2} Normal >60 [facility] Comment on above: Result Comment: Non- GFR Calc Performed By: #### L [id number], [id number], L500.4050, L100.0100 #### [facility] [address] [place], [address] Globulin (S) [Mass/Vol] 3.4 g/dL Normal 2.2-4.2 [facility] Comment on above: Performed By: #### L 501.9985, [id number], L500.4050, L100.0100 #### [facility] [address] [place], [address] Glucose [Mass/Vol] 142 mg/dL High 74-106 [facility] Comment on above: Result Comment: Fast ing Glucose result greater than or equal to 126 mg/dL suggests DIABETES MELLITUS per A.D.A. criteria. Performed By: #### L [id number], [id number], L500.4050, L100.0100 #### [facility] [address] [place], [address] Potassium [Moles/Vol] 4.0 mmol/L Normal 3.5-5.1 [facility] Comment on above: Performed By: #### L 501.9985, [id number], L500.4050, L100.0100 #### [facility] [address] [place], [address] Sodium [Moles/Vol] 138 mmol/L Normal 136-145 [facility] Comment on above: Performed By: #### L 501.9985, [id number], L500.4050, L100.0100 #### [facility] [address] [place], [address] T PROT 7.4 g/dL Normal 6.4-8.2 [facility] Comment on above: Performed By: #### L 501.9985, [id number], L500.4050, L100.0100 #### [facility] [address] [place], [address] Urea nitrogen [Mass/Vol] 19 mg/dL High 7-18 [facility] Comment on above: Performed By: #### L [id number], [id number], L500.4050, L100.0100 #### [facility] [address] [place], [address] Hemoglobin A1con 07-11-2024 HbA1c (Bld) [Mass fraction] 5.9 % High 3.8-5.6 [facility] Comment on above: Order Comment: ADD O N FROM TODAY [id number] Result Comment: Norm al < 5.7 % Prediabetic 5.7 - 6.4 % Diabetic >or= 6.5 % Please note range changes. Performed By: #### L [id number], [id number], L500.4050, L100.0100 #### [facility] [address] [place], [place], [address] Thyroid Stim Hormone (TSH)on 07-11-2024 TSH 1.200 uIU/mL Normal 0.358-3.740 [facility] Comment on above: Performed By: #### L 501.9985, [id number], L500.4050, L100.0100 #### [facility] [address] [place], [place], [address] CNOVon 01-07-2024 CNOV Office Visit (UCWSTR) NY MCINTOSH ([id number]) 1970 M Date Time Provider Department 01/07/24 7:15 AM MICHELLE PANDEY [facility] During your visit today, we recorded the following information about you: Temperature Pulse Respiration Blood pressure 97.1 degrees 100/minute 16/minute 140/80 Weight 111.8 kg Michelle Pandey, [employer]PER[employer]ORY LIFEGUARD 01/07/2024 7:20 AM Signed ASSESSMENT/PLAN: 1. Nasal congestion - ICD9: 478.19, ICD10: R09.81 (primary diagnosis) - may use Coricidin HBP and Flonase nasal spray (over the counter). 2. Nasal drainage - ICD9: 478.19, ICD10: J34.89 - Supportive care with plenty of fluids, rest, and analgesia prn. 3. Headache, unspecified headache type - ICD9: 784.0, ICD10: R51.9 - may take tylenol or ibuprofen as needed. - Follow-up with your PCP in 3-5 days if symptoms have not improved or sooner if symptoms worsen - Discussed red flags and need for immediate medical evaluation if any occur. - Discussed supportive care treatment with fluids, rest and analgesia. - Discussed expected course of illness Michelle Pandey APRN.SUPERVISORY LIFEGUARD Treatment for Viral Upper Respiratory Tract Infections Your body will kill off the virus by itself. Additionally, you can prime your body's immune system. This may help you get better more quickly. Drink lots of fluids Make sure you are eating well Get plenty of rest We do not have any medications that kill off these viruses. Antibiotics are used to treat bacterial infections; however, they are not active against viral infections. There are some things that might help you feel better, though. Vaporizers, humidifiers, hot showers, and hot fluids help open respiratory and sinus passages [place] Nasal [place] may offer relief of nasal and head congestion Chivo's Vapor Rub may relieve congestion Tylenol and Advil help control fevers and headaches Salt water gargles help relieve sore throats Chloraceptic spray or throat lozenges may also help relieve sore throat symptoms Occasionally, viral infections turn into something more serious. You should see your doctor or return to the Urgent Care if: You have fevers for longer than five days You have fevers above 102 degrees You are still sick after 10 days You have shortness of breath or wheezing After several days you are getting worse rather than better Michelle Pandey APRN.SUPERVISORY LIFEGUARD 01/07/2024 7:24 AM Signed Subjective Sinus Problem Associated symptoms include congestion, headaches and a sore throat ("scratchy"). Pertinent negatives include no chest pain, chills, coughing, fever, myalgias, nausea or vomiting. Ny Mcintosh is a 53 year old male who presents with one day of nasal congestion and drainage and a scratchy throat and a headache. -has not had a headache - no known recent sick contacts but did attend [place] [employer] [place] last week - took Dayquil and Sinex at home -states he has sinus pressure on the right side of his nose and had difficulty sleeping last night. Review of Systems Constitutional: Negative for chills, fever and malaise/fatigue. HENT: Positive for congestion, sinus pain ("pressure right side") and sore throat ("scratchy"). Negative for ear pain. Respiratory: Negative for cough. Cardiovascular: Negative for chest pain. Gastrointestinal: Negative for diarrhea, nausea and vomiting. Musculoskeletal: Negative for myalgias. Neurological: Positive for headaches. BP 140/80 Pulse 100 Temp 36.2 ?C (97.1 ?F) Resp 16 Wt 111.8 kg (246 lb 7.6 oz) SpO2 96% PAST MEDICAL HISTORY Diagnosis Date Elevated cholesterol Hypertension PAST SURGICAL HISTORY Procedure Laterality Date SPINAL DISK SURGERY ADD ON US CARPEL TUNNEL INJECTION (SP) ALLERGIES Patient has no known allergies. MEDICATIONS atorvastatin (LIPITOR) 40 mg tablet 40 mg. lisinopril (ZESTRIL, PRINIVIL) 10 mg tablet FAMILY HISTORY Problem Relation Age of Onset Heart Father Hypertension Father Diabetes Maternal Grandmother Glaucoma No Family History Macular Degen No Family History Blindness No Family History Detached Retina No Family History Social History Tobacco Use Smoking status: Former Types: Cigarettes Quit date: 06/22/1987 Years since quittin.5 Smokeless tobacco: Current Types: Chew Tobacco comments: Did not ask Vaping Use Vaping Use: Never used Substance Use Topics Alcohol use: Not Currently Drug use: No Objective Physical Exam Vitals and nursing note reviewed. Constitutional: General: He is not in acute distress. Appearance: Normal appearance. He is not ill-appearing. HENT: Right Ear: Tympanic membrane, ear canal and external ear normal. Left Ear: Tympanic membrane, ear canal and external ear normal. Nose: Congestion present. Mouth/Throat: Mouth: Mucous membranes are moist. Pharynx: Oropharynx is clear. Uvula midline. No orop (more content not included)... Normal [facility] Absolute lymphocyte countOrd ered By: Talisha Eagleok on 07-02-2023 Lymphocytes Auto (Unsp spec) [#/Vol] 1.35 10*3/uL 0.83-4.51 [facility] Basophil percentageOrdered B y: Talisha Eagleok on 07-02-2023 Basophils/100 WBC (Bld) 0.8 % 0-1 [facility] Bilirubin [Mass/Vol] 0.60 mg/dL 0.20-1.00 [facility] Comment on above: For patients on eltr ombopag therapy, use of Dimension [place] TBIL is not recommended. Chloride [Moles/Vol] 107 mmol/L 98-107 [facility] Eosinophils/100 WBC (Bld) 3.3 % 0-5 [facility] Glucose [Mass/Vol] 123 mg/dL 74-106 [facility] Comment on above: Fasting Glucose resu lt from 100 to 125 mg/dL suggests IMPAIRED HOMEOSTASIS per A.D.A. criteria. Neutrophils (Bld) [#/Vol] 2.1 10*3/uL 2.0-7.7 [facility] Neutrophils/100 WBC (Bld) 53.3 % 47-70 [facility] Potassium [Moles/Vol] 3.7 mmol/L 3.5-5.1 [facility] Protein [Mass/Vol] 7.1 g/dL 6.4-8.2 [facility] Sodium [Moles/Vol] 139 mmol/L 136-145 [facility] WBC (Bld) [#/Vol] 4.0 10*3/uL 4.4-11.0 [facility] Blood erythrocytes count (nu mber/volume)Ordered By: Talisha Manzanares on 07-02-2023 RBC (Bld) [#/Vol] 5.28 10*6/uL 4.6-6.2 [facility] Blood hemoglobin measurement (mass/volume)Ordered By: Talisha Manzanares on 07-02-2023 Hemoglobin (Bld) [Mass/Vol] 15.2 g/dL 13.0-16.5 [facility] Blood lymphocytes/100 leukoc ytesOrdered By: Talisha Manzanares on 07-02-2023 Lymphocytes/100 WBC (Bld) 34.0 % 19-41 [facility] Blood monocytes/100 leukocyt esOrdered By: Talisha Manzanares on 07-02-2023 Monocytes/100 WBC (Bld) 8.3 % 0-10 [facility] Blood platelet mean volumeOr dered By: Talisha Manzanares on 07-02-2023 Platelet mean volume (Bld) [Entitic vol] 11.0 fL 6.2-12.0 [facility] Determination of erythrocyte mean corpuscular volume (MCV)Ordered By: Talisha Manaznares on 07-02-2023 MCV (RBC) [Entitic vol] 86.4 fL 80-94 [facility] Hematocrit Auto (Bld) [Volum e fraction]Ordered By: Talisha Manzanares on 07-02-2023 Hematocrit (Bld) [Volume fraction] 45.6 % 40-54 [facility] - Chemistry and C hemistry - challengeOrdered By: Talisha Leighton on 07-02-2023 ALP [Catalytic activity/Vol] 58 U/L 45-117 [facility] ALT [Catalytic activity/Vol] 47 U/L 16-61 [facility] CO2 [Moles/Vol] 27.0 mmol/L 21.0-32.0 [facility] Globulin (S) [Mass/Vol] 3.2 g/dL 2.2-4.2 [facility] Urea nitrogen/Creatinine [Mass ratio] 14.7 mg/mg 10-20 [facility] - Hematology and Cell countsOrdered By: Talisha Manzanares on 07-02-2023 Erythrocyte distribution width (RBC) [Entitic vol] 41.4 fL 35.1-43.9 [facility] Erythrocyte distribution width (RBC) [Ratio] 13.3 % 11.6-14.6 [facility] Immature granulocytes/100 WBC (Bld) 0.300 % 0.0-0.9 [facility] Comment on above: IG% - Immature Granu locytes (promyelocytes, myelocytes and metamyelocytes) > 1% indicates that a LEFT SHIFT is Present. MCH (RBC) [Entitic mass] 28.8 pg 27.0-32.0 [facility] Nucleated RBC/100 WBC (Bld) [Ratio] 0 % 0-5 [facility] MCHC Auto (RBC) [Mass/Vol]Or dered By: Talisha Manzanares on 07-02-2023 MCHC (RBC) [Mass/Vol] 33.3 g/dL 32-36 [facility] No Panel InformationOrdered By: Talisha Manzanares on 07-02-2023 Estimated GFR (MDRD) Amer 106 mL/min >60 [facility] Comment on above: GFR Calc Estimated GFR (MDRD) Non-Af Amer 87 mL/min >60 [facility] Comment on above: Non- GFR Calc Thyroid Stimulating Hormone (TSH) 1.24 uIU/mL 0.358-3.74 [facility] Platelets bldOrdered By: Talisha Manzanares on 07-02-2023 Platelets (Bld) [#/Vol] 165 10*3/uL 150-450 [facility] Serum or plasma albumin luis urement (mass/volume)Ordered By: Talisha Manzanares on 07-02-2023 Albumin [Mass/Vol] 3.9 g/dL 3.2-5.0 [facility] Serum or plasma albumin/glob ulin mass ratioOrdered By: Talisha Manzanares on 07-02-2023 Albumin/Globulin [Mass ratio] 1.2 {ratio} 0.9-2.4 [facility] Serum or plasma calcium luis urement (mass/volume)Ordered By: Talisha Manzanares on 07-02-2023 Calcium [Mass/Vol] 9.1 mg/dL 8.5-10.1 [facility] Serum or plasma creatinine m easurement (mass/volume)Ordered By: Talisha Manzanares on 07-02-2023 Creatinine [Mass/Vol] 0.95 mg/dL 0.70-1.30 [facility] Comment on above: The validity of the calculated GFR & GFRAA in patients over 70 years has not been determined. Clinical correlation is essential. Serum or plasma urea nitroge n measurement (mass/volume)Ordered By: Talisha Manzanares on 07-02-2023 Urea nitrogen [Mass/Vol] 14 mg/dL 7-18 [facility] Thin prep Papanicolaou smear with manual screeningOrdered By: Talisha Manzanares on 07-02-2023 Thin prep Papanicolaou smear with manual screening 30 U/L 15-37 [facility] Thin prep Papanicolaou smear with manual screening 5 5-15 [facility] Absolute lymphocyte countOrd ered By: Dr. Manzanares on 01-15-2023 Lymphocytes Auto (Unsp spec) [#/Vol] 1.25 10*3/uL 0.83-4.51 [facility] Basophil percentageOrdered B y: Dr. Manzanares on 01-15-2023 Basophils/100 WBC (Bld) 0.5 % 0-1 [facility] Bilirubin [Mass/Vol] 0.60 mg/dL 0.20-1.00 [facility] Comment on above: For patients on eltr ombopag therapy, use of Dimension [place] TBIL is not recommended. Chloride [Moles/Vol] 108 mmol/L 98-107 [facility] Eosinophils/100 WBC (Bld) 3.1 % 0-5 [facility] Glucose [Mass/Vol] 95 mg/dL 74-106 [facility] Neutrophils (Bld) [#/Vol] 2.2 10*3/uL 2.0-7.7 [facility] Neutrophils/100 WBC (Bld) 56.2 % 47-70 [facility] Potassium [Moles/Vol] 3.6 mmol/L 3.5-5.1 [facility] Protein [Mass/Vol] 6.9 g/dL 6.4-8.2 [facility] Sodium [Moles/Vol] 140 mmol/L 136-145 [facility] WBC (Bld) [#/Vol] 3.8 10*3/uL 4.4-11.0 [facility] Blood erythrocytes count (nu mber/volume)Ordered By: Dr. Manzanares on 01-15-2023 RBC (Bld) [#/Vol] 5.11 10*6/uL 4.6-6.2 [facility] Blood hemoglobin measurement (mass/volume)Ordered By: Dr. Manzanares on 01-15-2023 Hemoglobin (Bld) [Mass/Vol] 14.5 g/dL 13.0-16.5 [facility] Blood lymphocytes/100 leukoc ytesOrdered By: Dr. Manzanares on 01-15-2023 Lymphocytes/100 WBC (Bld) 32.6 % 19-41 [facility] Blood monocytes/100 leukocyt esOrdered By: Dr. Manzanares on 01-15-2023 Monocytes/100 WBC (Bld) 7.6 % 0-10 [facility] Blood platelet mean volumeOr dered By: Dr. Manzanares on 01-15-2023 Platelet mean volume (Bld) [Entitic vol] 10.9 fL 6.2-12.0 [facility] Determination of erythrocyte mean corpuscular volume (MCV)Ordered By: Dr. Manzanares on 01-15-2023 MCV (RBC) [Entitic vol] 84.0 fL 80-94 [facility] Hematocrit Auto (Bld) [Volum e fraction]Ordered By: Dr. Manzanares on 01-15-2023 Hematocrit (Bld) [Volume fraction] 42.9 % 40-54 [facility] Laboratory - Chemistry and C hemistry - challengeOrdered By: Dr. Manzanares on 01-15-2023 ALP [Catalytic activity/Vol] 56 U/L 45-117 [facility] ALT [Catalytic activity/Vol] 43 U/L 16-61 [facility] CO2 [Moles/Vol] 24.0 mmol/L 21.0-32.0 [facility] Globulin (S) [Mass/Vol] 3.0 g/dL 2.2-4.2 [facility] Urea nitrogen/Creatinine [Mass ratio] 16.3 mg/mg 10-20 [facility] Laboratory - Hematology and Cell countsOrdered By: Dr. Manzanares on 01-15-2023 Erythrocyte distribution width (RBC) [Entitic vol] 39.4 fL 35.1-43.9 [facility] Erythrocyte distribution width (RBC) [Ratio] 12.7 % 11.6-14.6 [facility] Immature granulocytes/100 WBC (Bld) 0.000 % 0.0-0.9 [facility] Comment on above: IG% - Immature Granu locytes (promyelocytes, myelocytes and metamyelocytes) > 1% indicates that a LEFT SHIFT is Present. MCH (RBC) [Entitic mass] 28.4 pg 27.0-32.0 [facility] Nucleated RBC/100 WBC (Bld) [Ratio] 0 % 0-5 [facility] MCHC Auto (RBC) [Mass/Vol]Or dered By: Dr. Manzanares on 01-15-2023 MCHC (RBC) [Mass/Vol] 33.8 g/dL 32-36 [facility] No Panel InformationOrdered By: Dr. Manzanares on 01-15-2023 Estimated GFR (MDRD) Amer 119 mL/min >60 [facility] Comment on above: GFR Calc Estimated GFR (MDRD) Non-Af Amer 99 mL/min >60 [facility] Comment on above: Non- GFR Calc Hepatitis C Antibody Non-Reactive Nonreactive [facility] Comment on above: Non Reactive: < 0.8 Equivocal: >/= 0.8 to < 1.0 Reactive: >/= 1.0The CDC recommends that a reactive/equivocal HCV antibody result be followed up by the HCV Nucleic Acid Amplificationtest (034113) Thyroid Stimulating Hormone (TSH) 1.09 uIU/mL 0.358-3.74 [facility] Platelets bldOrdered By: Dr. Manzanares on 01-15-2023 Platelets (Bld) [#/Vol] 171 10*3/uL 150-450 [facility] Serum or plasma albumin luis urement (mass/volume)Ordered By: Dr. Manzanares on 01-15-2023 Albumin [Mass/Vol] 3.9 g/dL 3.2-5.0 [facility] Serum or plasma albumin/glob ulin mass ratioOrdered By: Dr. Manzanares on 01-15-2023 Albumin/Globulin [Mass ratio] 1.3 {ratio} 0.9-2.4 [facility] Serum or plasma calcium luis urement (mass/volume)Ordered By: Dr. Manzanares on 01-15-2023 Calcium [Mass/Vol] 8.8 mg/dL 8.5-10.1 [facility] Serum or plasma creatinine m easurement (mass/volume)Ordered By: Dr. Manzanares on 01-15-2023 Creatinine [Mass/Vol] 0.86 mg/dL 0.70-1.30 [facility] Comment on above: The validity of the calculated GFR & GFRAA in patients over 70 years has not been determined. Clinical correlation is essential. Serum or plasma urea nitroge n measurement (mass/volume)Ordered By: Dr. Manzanares on 01-15-2023 Urea nitrogen [Mass/Vol] 14 mg/dL 7-18 [facility] Thin prep Papanicolaou smear with manual screeningOrdered By: Dr. Manzanares on 01-15-2023 Thin prep Papanicolaou smear with manual screening 29 U/L 15-37 [facility] Thin prep Papanicolaou smear with manual screening 8 5-15 [facility] Absolute lymphocyte counton 07-16-2022 Lymphocytes Auto (Unsp spec) [#/Vol] 1.54 10*3/uL 0.83-4.51 [facility] Work Phone: Basophil percentageon 2021 Basophils/100 WBC (Bld) 0.6 % 0-1 [facility] Work Phone: Bilirubin [Mass/Vol] 0.60 mg/dL 0.20-1.00 [facility] Work Phone: Comment on above: For patients on eltr ombopag therapy, use of Dimension [place] TBIL is not recommended. Chloride [Moles/Vol] 104 mmol/L 98-107 [facility] Work Phone: Eosinophils/100 WBC (Bld) 3.0 % 0-5 [facility] Work Phone: Glucose [Mass/Vol] 81 mg/dL 74-106 [facility] Work Phone: Neutrophils (Bld) [#/Vol] 2.6 10*3/uL 2.0-7.7 [facility] Work Phone: Neutrophils/100 WBC (Bld) 55.8 % 47-70 [facility] Work Phone: Potassium [Moles/Vol] 3.6 mmol/L 3.5-5.1 [facility] Work Phone: Protein [Mass/Vol] 7.0 g/dL 6.4-8.2 [facility] Work Phone: Sodium [Moles/Vol] 139 mmol/L 136-145 [facility] Work Phone: WBC (Bld) [#/Vol] 4.7 10*3/uL 4.4-11.0 [facility] Work Phone: Blood erythrocytes count (nu mber/volume)on 07-16-2022 RBC (Bld) [#/Vol] 5.10 10*6/uL 4.6-6.2 [facility] Work Phone: Blood hemoglobin measurement (mass/volume)on 07-16-2022 Hemoglobin (Bld) [Mass/Vol] 14.9 g/dL 13.0-16.5 [facility] Work Phone: Blood lymphocytes/100 leukoc yteson 07-16-2022 Lymphocytes/100 WBC (Bld) 32.6 % 19-41 [facility] Work Phone: Blood monocytes/100 leukocyt eson 07-16-2022 Monocytes/100 WBC (Bld) 7.8 % 0-10 [facility] Work Phone: Blood platelet mean volumeon 07-16-2022 Platelet mean volume (Bld) [Entitic vol] 11.3 fL 6.2-12.0 [facility] Work Phone: Determination of erythrocyte mean corpuscular volume (MCV)on 07-16-2022 MCV (RBC) [Entitic vol] 86.7 fL 80-94 [facility] Work Phone: Hematocrit Auto (Bld) [Volum e fraction]on 07-16-2022 Hematocrit (Bld) [Volume fraction] 44.2 % 40-54 [facility] Work Phone: Laboratory - Chemistry and C hemistry - challengeon 07-16-2022 ALP [Catalytic activity/Vol] 55 U/L 45-117 [facility] Work Phone: ALT [Catalytic activity/Vol] 56 U/L 16-61 [facility] Work Phone: CO2 [Moles/Vol] 28.0 mmol/L 21.0-32.0 [facility] Work Phone: Globulin (S) [Mass/Vol] 3.0 g/dL 2.2-4.2 [facility] Work Phone: Urea nitrogen/Creatinine [Mass ratio] 20.3 mg/mg 10-20 [facility] Work Phone: Laboratory - Hematology and Cell countson 07-16-2022 Erythrocyte distribution width (RBC) [Entitic vol] 40.6 fL 35.1-43.9 [facility] Work Phone: Erythrocyte distribution width (RBC) [Ratio] 13.0 % 11.6-14.6 [facility] Work Phone: [phone] Immature granulocytes/100 WBC (Bld) 0.200 % 0.0-0.9 [facility] Work Phone: [phone] Comment on above: IG% - Immature Granu locytes (promyelocytes, myelocytes and metamyelocytes) > 1% indicates that a LEFT SHIFT is Present. MCH (RBC) [Entitic mass] 29.2 pg 27.0-32.0 [facility] Work Phone: [phone] Nucleated RBC/100 WBC (Bld) [Ratio] 0 % 0-5 [facility] Work Phone: [phone] MCHC Auto (RBC) [Mass/Vol]on 07-16-2022 MCHC (RBC) [Mass/Vol] 33.7 g/dL 32-36 [facility] Work Phone: [phone] No Panel Informationon 07-16 Estimated GFR (MDRD) Amer 108 mL/min >60 [facility] Work Phone: [phone] Comment on above: GFR Calc Estimated GFR (MDRD) Non-Af Amer 90 mL/min >60 [facility] Work Phone: [phone] Comment on above: Non- GFR Calc Thyroid Stimulating Hormone (TSH) 1.81 uIU/mL 0.358-3.74 [facility] Work Phone: [phone] Platelets bldon 07-16-2022 Platelets (Bld) [#/Vol] 205 10*3/uL 150-450 [facility] Work Phone: [phone] Serum or plasma albumin luis urement (mass/volume)on 07-16-2022 Albumin [Mass/Vol] 4.0 g/dL 3.2-5.0 [facility] Work Phone: [phone] Serum or plasma albumin/glob ulin mass ratioon 07-16-2022 Albumin/Globulin [Mass ratio] 1.3 {ratio} 0.9-2.4 [facility] Work Phone: Serum or plasma calcium luis urement (mass/volume)on 07-16-2022 Calcium [Mass/Vol] 8.8 mg/dL 8.5-10.1 [facility] Work Phone: Serum or plasma creatinine m easurement (mass/volume)on 07-16-2022 Creatinine [Mass/Vol] 0.94 mg/dL 0.70-1.30 [facility] Work Phone: Comment on above: The validity of the calculated GFR & GFRAA in patients over 70 years has not been determined. Clinical correlation is essential. Serum or plasma urea nitroge n measurement (mass/volume)on 07-16-2022 Urea nitrogen [Mass/Vol] 19 mg/dL 7-18 [facility] Work Phone: Thin prep Papanicolaou smear with manual screeningon 07-16-2022 Thin prep Papanicolaou smear with manual screening 27 U/L 15-37 [facility] Work Phone: Thin prep Papanicolaou smear with manual screening 7 5-15 [facility] Work Phone: Absolute lymphocyte counton 01-08-2022 Lymphocytes Auto (Unsp spec) [#/Vol] 1.67 10*3/uL 0.83-4.51 [facility] Work Phone: Basophil percentageon 2021 Basophils/100 WBC (Bld) 0.8 % 0-1 [facility] Work Phone: Bilirubin [Mass/Vol] 0.60 mg/dL 0.20-1.00 [facility] Work Phone: Comment on above: For patients on eltr ombopag therapy, use of Dimension [place] TBIL is not recommended. Chloride [Moles/Vol] 106 mmol/L 98-107 [facility] Work Phone: Eosinophils/100 WBC (Bld) 2.5 % 0-5 [facility] Work Phone: Glucose [Mass/Vol] 76 mg/dL 74-106 [facility] Work Phone: Neutrophils (Bld) [#/Vol] 2.5 10*3/uL 2.0-7.7 [facility] Work Phone: Neutrophils/100 WBC (Bld) 52.5 % 47-70 [facility] Work Phone: Potassium [Moles/Vol] 3.8 mmol/L 3.5-5.1 [facility]: Protein [Mass/Vol] 7.1 g/dL 6.4-8.2 [facility] Work Phone: Sodium [Moles/Vol] 137 mmol/L 136-145 [facility] Work Phone: WBC (Bld) [#/Vol] 4.7 10*3/uL 4.4-11.0 [facility] Work Phone: Blood erythrocytes count (nu mber/volume)on 01-08-2022 RBC (Bld) [#/Vol] 5.00 10*6/uL [facility]: Blood hemoglobin measurement (mass/volume)on 01-08-2022 Hemoglobin (Bld) [Mass/Vol] 14.4 g/dL 13.0-16.5 [facility] Work Phone: Blood lymphocytes/100 leukoc yteson 01-08-2022 Lymphocytes/100 WBC (Bld) 35.5 % 19-41 [facility] Work Phone: Blood monocytes/100 leukocyt eson 01-08-2022 Monocytes/100 WBC (Bld) 8.5 % 0-10 [facility] Work Phone: Blood platelet mean volumeon 01-08-2022 Platelet mean volume (Bld) [Entitic vol] 11.6 fL 6.2-12.0 [facility] Work Phone: Determination of erythrocyte mean corpuscular volume (MCV)on 01-08-2022 MCV (RBC) [Entitic vol] 84.6 fL 80-94 [facility] Work Phone: [phone] Hematocrit Auto (Bld) [Volum e fraction]on 01-08-2022 Hematocrit (Bld) [Volume fraction] 42.3 % 40-54 [facility] Work Phone: [phone] Laboratory - Chemistry and C hemistry - challengeon 01-08-2022 ALP [Catalytic activity/Vol] 51 U/L 45-117 [facility] Work Phone: [phone] ALT [Catalytic activity/Vol] 41 U/L 16-61 [facility] Work Phone: [phone] CO2 [Moles/Vol] 26.0 mmol/L 21.0-32.0 [facility] Work Phone: [phone] Globulin (S) [Mass/Vol] 3.1 g/dL 2.2-4.2 [facility] Work Phone: [phone] Urea nitrogen/Creatinine [Mass ratio] 21.6 mg/mg 10-20 [facility] Work Phone: [phone] Laboratory - Hematology and Cell countson 01-08-2022 Erythrocyte distribution width (RBC) [Entitic vol] 40.4 fL 35.1-43.9 [facility] Work Phone: [phone] Erythrocyte distribution width (RBC) [Ratio] 13.2 % 11.6-14.6 [facility] Work Phone: [phone] Immature granulocytes/100 WBC (Bld) 0.200 % 0.0-0.9 [facility] Work Phone: [phone] Comment on above: IG% - Immature Granu locytes (promyelocytes, myelocytes and metamyelocytes) > 1% indicates that a LEFT SHIFT is Present. MCH (RBC) [Entitic mass] 28.8 pg 27.0-32.0 [facility] Work Phone: [phone] Nucleated RBC/100 WBC (Bld) [Ratio] 0 % 0-5 [facility] Work Phone: [phone] MCHC Auto (RBC) [Mass/Vol]on 01-08-2022 MCHC (RBC) [Mass/Vol] 34.0 g/dL 32-36 [facility] Work Phone: No Panel Informationon 01-08 Estimated GFR (MDRD) Amer 104 mL/min >60 [facility] Work Phone: [phone] Comment on above: GFR Calc Estimated GFR (MDRD) Non-Af Amer 86 mL/min >60 [facility] Work Phone: [phone] Comment on above: Non- GFR Calc Thyroid Stimulating Hormone (TSH) 1.54 uIU/mL 0.358-3.74 [facility] Work Phone: [phone] Vitamin D 25-Hydroxy 28.4 ng/mL [facility] Work Phone: Comment on above: Vitamin D 25(OH) Sta tus Range Deficiency <20 ng/mL (50nmol/L) Insufficiency 20 - 30 ng/mL (50 - 75 nmol/L) Sufficiency 30 - 100 ng/mL (75 - 250 nmol/L) Toxicity >100 ng/mL (>250 nmol/L) Platelets bldon 01-08-2022 Platelets (Bld) [#/Vol] 183 10*3/uL 150-450 [facility] Work Phone: [phone] Serum or plasma albumin luis urement (mass/volume)on 01-08-2022 Albumin [Mass/Vol] 4.0 g/dL 3.2-5.0 [facility] Work Phone: [phone] Serum or plasma albumin/glob ulin mass ratioon 01-08-2022 Albumin/Globulin [Mass ratio] 1.3 {ratio} 0.9-2.4 [facility] Work Phone: [phone] Serum or plasma calcium luis urement (mass/volume)on 01-08-2022 Calcium [Mass/Vol] 8.7 mg/dL 8.5-10.1 [facility] Work Phone: [phone] Serum or plasma creatinine m easurement (mass/volume)on 01-08-2022 Creatinine [Mass/Vol] 0.97 mg/dL 0.70-1.30 [facility] Work Phone: Comment on above: The validity of the calculated GFR & GFRAA in patients over 70 years has not been determined. Clinical correlation is essential. Serum or plasma urea nitroge n measurement (mass/volume)on 01-08-2022 Urea nitrogen [Mass/Vol] 21 mg/dL 7-18 [facility] Work Phone: Thin prep Papanicolaou smear with manual screeningon 01-08-2022 Thin prep Papanicolaou smear with manual screening 25 U/L 15-37 [facility] Work Phone: Thin prep Papanicolaou smear with manual screening 5 5-15 [facility] Work Phone: Vital Signs Date Time Vital Sign Value Performing Clinician Facility 01-07-2024 07:11-0400 Body temperature 97.11 [degF] Michelle Pandey APRN.[employer] Work Phone: [facility] 01-07-2024 07:11-0400 Body weight 111.8 kg Michelle Pandey APRN.[employer] Work Phone: [facility] 01-07-2024 07:11-0400 Diastolic blood pressure 80 mm[Hg] Michelle Kaminskiler-[facility].[employer] Work Phone: [facility] 01-07-2024 07:11-0400 Heart rate 100 /min Michelle Pandey [facility].[employer] Work Phone: [facility] 01-07-2024 07:11-0400 Respiratory rate 16 /min Michelle Pandey [facility].[employer] Work Phone: [facility] 01-07-2024 07:11-0400 SaO2% (BldA) [Mass fraction] 96 % Michelle Turpin-[facility].[employer] Work Phone: [facility] 01-07-2024 07:11-0400 Systolic blood pressure 140 mm[Hg] Michelle Kaminskiler-[facility].[employer] Work Phone: [facility] 05-19-2022 14:32-0400 Body height 182.[address] aTlisha Manzanares Work Phone: [facility] Work Phone: 05-19-2022 14:32-0400 Body mass index (BMI) [Ratio] 32.8 kg/m2 Dr. Talisha Manzanares Work Phone: [facility] Work Phone: 05-19-2022 14:32-0400 Body weight 110.[address] Talisha Manzanares Work Phone: [facility] Work Phone: 05-19-2022 14:32-0400 Diastolic blood pressure 60 mm[Hg] Dr. Talisha Manzanares Work Phone: [facility] Work Phone: 05-19-2022 14:32-0400 Heart rate 84 /min Dr. Talisha Manzanares Work Phone: [facility] Work Phone: 05-19-2022 14:32-0400 Respiratory rate 16 /min Dr. Talisha Manzanares Work Phone: [facility] Work Phone: 05-19-2022 14:32-0400 Systolic blood pressure 110 mm[Hg] Dr. Talisha Manzanares Work Phone: [facility] Work Phone: Encounters Encounter Date Encounter Type Care Provider Facility Start: 01-23-2025 End: 01-23-[address] Talisha Manzanares MD Work Phone: [facility] Work Phone: Start: 01-23-2025 End: 01-23-[address] Talisha Manzanares MD -Laboratory Work Phone: Start: 01-23-2025 End: 01-23-2025 ambulatory Talisha Manzanares Facility:[facility] Start: 07-11-2024 End: 07-11-2024 ambulatory FAUZIA CAMPUZANO Facility:[facility] Start: 07-11-2024 End: 07-11-2024 Patient encounter procedure Fauzia Alvarezjennifer OD Work Phone: Optometry Comment on above: Floaters, bilateral (Primary Dx); Growth of eyelid; Myopia, bilateral; Regular astigmatism, bilateral; Presbyopia Start: 07-11-2024 End: 07-11-2024 ambulatory [facility] Facility:[facility] Start: 01-07-2024 End: 01-07-2024 ambulatory [facility] Facility:[facility] Start: 01-07-2024 End: 01-07-2024 Patient encounter procedure Michelle Pandey APRN.[employer] Work Phone: [facility] Comment on above: Nasal congestion (Pr imary Dx); Nasal drainage; Headache, unspecified headache type Start: 07-02-2023 End: 07-02-2023 ambulatory [facility] Work Phone: Start: 07-02-2023 End: 07-02-[address] [facility] Start: 01-15-2023 End: 01-15-2023 ambulatory [facility] Work Phone: Start: 01-15-2023 End: 01-15-[address] [facility] Start: 07-16-2022 End: 07-16-[address] Talisha Manzanares Work Phone: [facility] Work Phone: Start: 07-16-2022 End: 07-16-[address] Tal[facility] Man[facility]anares [facility] Office 3rd Flr Start: 06-02-2022 Non-patient / Non-visit Dr. Terry Manzanares Work Phone: [facility] Start: 06-02-2022 End: 06-02-[address] Talisha Manzanares Work Phone: [facility] Work Phone: Start: 06-02-2022 End: 06-02-[address] Talisha Manzanares Work Phone: [facility] Start: 05-19-2022 End: 05-19-[address] Talisha Manzanares Work Phone: [facility] Start: 01-08-2022 End: 01-08-2022 Patient encounter procedure [facility]-Laboratory, Phy Office 3rd Flr Procedures Date Procedure Procedure Detail Performing Clinician Start: 01-23-2025 Prostate specific an tigen measurement Dr. Talisha Manzanares MD Work Phone: Comment on above: This test was perfor med using the [facility] tPSA method. Measured values of a patient sample can vary depending on the testing procedure used. PSA values determined on patient samples by different testing procedures cannot be used interchangeably. If there is a change in PSA assays while monitoring therapy, sequential testing should be performed to confirm baseline values. Plan of Treatment Date Care Activity Detail Author Start: 04-17-2024 Covid-19 Vaccine () Covid-19 Vaccine () [facility] Start: 04-17-2024 Influenza vaccination [facility] Start: 01-23-2024 Prostate specific antigen measurement Prostate Cancer Screening Discussion [facility] Start: 08-17-2023 Behavioral Health Screening Behavioral Health Screening [facility] Start: 07-02-2023 Borrelia burgdorferi blot test [facility] Start: 04-17-2023 Covid-19 Vaccine () Covid-19 Vaccine () [facility] Start: 2014 Diabetes Screening Diabetes Screening [facility] Start: 2014 Screening for malignant neoplasm of colon [facility] Start: 01-23-2004 Lipid panel Lipid Screening [facility] Start: 01-23-1988 Hepatitis B Vaccine (1 of 3 - 19+ 3-dose series) Hepatitis B Vaccine (1 of 3 - 19+ 3-dose series) [facility] Start: 01-23-1988 Urine microalbumin profile DTaP,Tdap,Td Vaccine (1 - Tdap) [facility] Start: 1987 Anxiety Screening Anxiety Screening [facility] Start: 1987 Depression Screening Depression Screening [facility] Start: 1987 Hepatitis C screening Hepatitis C Screening [facility] Start: 1987 HIV screening HIV Screening [facility] Laboratory data interpretation [facility] Payers Date Payer Category Payer Self-pay [id number] 2021 Unknown [employer]ESSIE [employer] PPO [id number] 2021-Present [phone] [facility] [id number] [place] [address] PPO [id number] 2008 [id number] Unknown [id number] Unknown [id number] Social History Date Type Detail Facility Start: 09-07-2021 End: 05-19-2022 Tobacco smoking status [facility] Unknown if ever smoked [facility] Start: 06-10-2019 None [facility] Start: 06-10-2019 With Family [facility] Start: 06-10-2019 Non-smoker [facility] Start: 1970 Sex Assigned At Male [facility] Start: 05-19-2022 End: 01-07-2024 Tobacco smoking status NHIS Ex-smoker [facility] End: 06-22-1987 History of tobacco use Current smoker [facility] End: 06-22-1987 History of tobacco use Cigarette Smoker [facility] Start: 01-07-2024 Tobacco use and exposure User of smokeless tobacco [facility] History of tobacco use Chews Tobacco [facility] Start: 01-07-2024 End: 07-11-2024 Alcohol intake Ex-drinker (finding) [facility] Start: 01-07-2024 End: 07-11-2024 History of Social function [facility] Start: 01-07-2024 End: 07-11-2024 Tobacco use panel [facility] Start: 01-07-2024 Tobacco Comment [facility] Start: 1970 Sex Assigned At Not on file C [facility] National Score (1-100), lower number is lower risk 47 [facility] Medical Equipment Procedure Code Equipment Code Equipment Origin al Text Equipment Identifier Dates STENT,URETERAL 6 FR PIG [id number] FDA Start: 06-10-2019 STENT,URETERAL 6 FR PIG [id number] FDA Start: 06-10-2019 STENT,URETERAL 6 FR PIG [id number] FDA Start: 06-10-2019 STENT,URETERAL 6 FR PIG [id number] FDA Start: 06-10-2019 STENT,URETERAL 6 FR PIG [id number] FDA Start: 06-10-2019 STENT,URETERAL 6 FR PIG [id number] FDA Start: 06-10-2019 Clinical Notes 01-07-2024 to 07-11-2024 Patient InstructionsCoFauzia dejesus, OD - 07/11/2024 2:05 PM Nima- Michelle Denis APRN.[employer] - 01/07/2024 7:20 AM EDTPatient Instructions Note Date & Type Note Facility 07-11-2024 Instructions Fauzia Campuzano, OD - 07/11/2024 2:06 PM EST ASSESSMENT/PLAN: 1. Floaters, bilateral - ICD9: 379.24, ICD10: H43.393 (primary diagnosis) Vitreal floaters stable both eyes. Retinas flat and intact with no apparent retinal tear or traction. Discussed symptoms of retinal tear/detachment and if seen patient will return to clinic without delay. 2. Growth of eyelid - ICD9: 239.2, ICD10: D49.2 Continue to monitor. 3. Myopia, bilateral - ICD9: 367.1, ICD10: H52.13 4. 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 Presbyopia - ICD9: 367.4, ICD10: H52.4 Continue to wear his glasses with the update Recommended yearly exams. documented in this encounter [facility] 07-11-2024 Note HNO ID: [id number] Author: FAUZIA CAMPUZANO OD Service: ? Author Type: PAPER CONSERVATOR Type: Progress Notes Filed: 07/11/2024 14:07 Note Text: ASSESSMENT/PLAN: 1. Floaters, bilateral - ICD9: 379.24, ICD10: H43.393 (primary diagnosis) Vitreal floaters stable both eyes. Retinas flat and intact with no apparent retinal tear or traction. Discussed symptoms of retinal tear/detachment and if seen patient will return to clinic without delay. 2. Growth of eyelid - ICD9: 239.2, ICD10: D49.2 Continue to monitor. 3. Myopia, bilateral - ICD9: 367.1, ICD10: H52.13 4. 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 Presbyopia - ICD9: 367.4, ICD10: H52.4 Continue to wear his glasses with the update Recommended yearly exams. Fauzia Campuzano, OD I have confirmed and edited as necessary the relevant ophthalmic history, ROS, and the neuro exam findings as obtained by others. [facility] 07-11-2024 History of Presen t illness Narrative ASSESSMENT/PLAN: 1. Floaters, bilateral - ICD9: 379.24, ICD10: H43.393 (primary diagnosis) Vitreal floaters stable both eyes. Retinas flat and intact with no apparent retinal tear or traction. Discussed symptoms of retinal tear/detachment and if seen patient will return to clinic without delay. 2. Growth of eyelid - ICD9: 239.2, ICD10: D49.2 Continue to monitor. 3. Myopia, bilateral - ICD9: 367.1, ICD10: H52.13 4. 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 Presbyopia - ICD9: 367.4, ICD10: H52.4 Continue to wear his glasses with the update Recommended yearly exams. Fauzia Campuzano, OD I have confirmed and edited as necessary the relevant ophthalmic history, ROS, and the neuro exam findings as obtained by others. documented in this encounter [facility] 01-07-2024 Note HNO ID: [id number] Author: MICHELLE PANDEY APRN.[employer] Service: ? Author Type: Nurse Practitioner Type: Progress Notes Filed: 01/07/2024 07:24 Note Text: Subjective Sinus Problem Associated symptoms include congestion, headaches and a sore throat ("scratchy"). Pertinent negatives include no chest pain, chills, coughing, fever, myalgias, nausea or vomiting. Ny Mcintosh is a 53 year old male who presents with one day of nasal congestion and drainage and a scratchy throat and a headache. -has not had a headache - no known recent sick contacts but did [place] [employer] [place] last [place] - took Dayquil and Sinex at home -states he has sinus pressure on the right side of his nose and had difficulty sleeping last night. Review of Systems Constitutional: Negative for chills, fever and malaise/fatigue. HENT: Positive for congestion, sinus pain ("pressure right side") and sore throat ("scratchy"). Negative for ear pain. Respiratory: Negative for cough. Cardiovascular: Negative for chest pain. Gastrointestinal: Negative for diarrhea, nausea and vomiting. Musculoskeletal: Negative for myalgias. Neurological: Positive for headaches. BP 140/80 Pulse 100 Temp 36.2 ?C (97.1 ?F) Resp 16 Wt 111.8 kg (246 lb 7.6 oz) SpO2 96% PAST MEDICAL HISTORY Diagnosis Date Elevated cholesterol Hypertension PAST SURGICAL HISTORY Procedure Laterality Date SPINAL DISK SURGERY ADD ON US CARPEL TUNNEL INJECTION (SP) ALLERGIES Patient has no known allergies. MEDICATIONS atorvastatin (LIPITOR) 40 mg tablet 40 mg. lisinopril (ZESTRIL, PRINIVIL) 10 mg tablet FAMILY HISTORY Problem Relation Age of Onset Heart Father Hypertension Father Diabetes Maternal Grandmother Glaucoma No Family History Macular Degen No Family History Blindness No Family History Detached Retina No Family History Social History Tobacco Use Smoking status: Former Types: Cigarettes Quit date: 06/22/1987 Years since quittin.5 Smokeless tobacco: Current Types: Chew Tobacco comments: Did not ask Vaping Use Vaping Use: Never used Substance Use Topics Alcohol use: Not Currently Drug use: No Objective Physical Exam Vitals and nursing note reviewed. Constitutional: General: He is not in acute distress. Appearance: Normal appearance. He is not ill-appearing. HENT: Right Ear: Tympanic membrane, ear canal and external ear normal. Left Ear: Tympanic membrane, ear canal and external ear normal. Nose: Congestion present. Mouth/Throat: Mouth: Mucous membranes are moist. Pharynx: Oropharynx is clear. Uvula midline. No oropharyngeal exudate or posterior oropharyngeal erythema. Cardiovascular: Rate and Rhythm: Normal rate and regular rhythm. Heart sounds: Normal heart sounds. Pulmonary: Effort: Pulmonary effort is normal. No respiratory distress. Breath sounds: Normal breath sounds. No wheezing or rales. Musculoskeletal: Cervical back: Neck supple. Skin: General: Skin is warm and dry. Findings: No erythema or rash. Neurological: Mental Status: He is alert. ASSESSMENT/PLAN: 1. Nasal congestion - ICD9: 478.19, ICD10: R09.81 (primary diagnosis) - may use Coricidin HBP and Flonase nasal spray (over the counter). 2. Nasal drainage - ICD9: 478.19, ICD10: J34.89 - Supportive care with plenty of fluids, rest, and analgesia prn. 3. Headache, unspecified headache type - ICD9: 784.0, ICD10: R51.9 - may take tylenol or ibuprofen as needed. - Follow-up with your PCP in 3-5 days if symptoms have not improved or sooner if symptoms worsen - Discussed red flags and need for immediate medical evaluation if any occur. - Discussed supportive care treatment with fluids, rest and analgesia. - Discussed expected course of illness Michelle Pandey APRN.[facility] 01-07-2024 History of Presen t illness Narrative Subjective Sinus Problem Associated symptoms include congestion, headaches and a sore throat ("scratchy"). Pertinent negatives include no chest pain, chills, coughing, fever, myalgias, nausea or vomiting. Ny Mcintosh is a 53 year old male who presents with one day of nasal congestion and drainage and a scratchy throat and a headache. -has not had a headache - no known recent sick contacts but did attend a [employer] [place] last week - took Dayquil and Sinex at home -states he has sinus pressure on the right side of his nose and had difficulty sleeping last night. Review of Systems Constitutional: Negative for chills, fever and malaise/fatigue. HENT: Positive for congestion, sinus pain ("pressure right side") and sore throat ("scratchy"). Negative for ear pain. Respiratory: Negative for cough. Cardiovascular: Negative for chest pain. Gastrointestinal: Negative for diarrhea, nausea and vomiting. Musculoskeletal: Negative for myalgias. Neurological: Positive for headaches. BP 140/80 Pulse 100 Temp 36.2 C (97.1 F) Resp 16 Wt 111.8 kg (246 lb 7.6 oz) SpO2 96% PAST MEDICAL HISTORY Diagnosis Date Elevated cholesterol Hypertension PAST SURGICAL HISTORY Procedure Laterality Date SPINAL DISK SURGERY ADD ON US CARPEL TUNNEL INJECTION (SP) ALLERGIES Patient has no known allergies. MEDICATIONS atorvastatin (LIPITOR) 40 mg tablet 40 mg. lisinopril (ZESTRIL, PRINIVIL) 10 mg tablet FAMILY HISTORY Problem Relation Age of Onset Heart Father Hypertension Father Diabetes Maternal Grandmother Glaucoma No Family History Macular Degen No Family History Blindness No Family History Detached Retina No Family History Social History Tobacco Use Smoking status: Former Types: Cigarettes Quit date: 06/22/1987 Years since quittin.5 Smokeless tobacco: Current Types: Chew Tobacco comments: Did not ask Vaping Use Vaping Use: Never used Substance Use Topics Alcohol use: Not Currently Drug use: No Objective Physical Exam Vitals and nursing note reviewed. Constitutional: General: He is not in acute distress. Appearance: Normal appearance. He is not ill-appearing. HENT: Right Ear: Tympanic membrane, ear canal and external ear normal. Left Ear: Tympanic membrane, ear canal and external ear normal. Nose: Congestion present. Mouth/Throat: Mouth: Mucous membranes are moist. Pharynx: Oropharynx is clear. Uvula midline. No oropharyngeal exudate or posterior oropharyngeal erythema. Cardiovascular: Rate and Rhythm: Normal rate and regular rhythm. Heart sounds: Normal heart sounds. Pulmonary: Effort: Pulmonary effort is normal. No respiratory distress. Breath sounds: Normal breath sounds. No wheezing or rales. Musculoskeletal: Cervical back: Neck supple. Skin: General: Skin is warm and dry. Findings: No erythema or rash. Neurological: Mental Status: He is alert. ASSESSMENT/PLAN: 1. Nasal congestion - ICD9: 478.19, ICD10: R09.81 (primary diagnosis) - may use Coricidin HBP and Flonase nasal spray (over the counter). 2. Nasal drainage - ICD9: 478.19, ICD10: J34.89 - Supportive care with plenty of fluids, rest, and analgesia prn. 3. Headache, unspecified headache type - ICD9: 784.0, ICD10: R51.9 - may take tylenol or ibuprofen as needed. - Follow-up with your PCP in 3-5 days if symptoms have not improved or sooner if symptoms worsen - Discussed red flags and need for immediate medical evaluation if any occur. - Discussed supportive care treatment with fluids, rest and analgesia. - Discussed expected course of illness Michelle Pandey APRN.[employer]ARD documented in this encounter [facility] 01-07-2024 Instructions Michelle Pandey APRN.[employer]PER[employer]ORY LIFEGUARD - 01/07/2024 7:20 AM EDT ASSESSMENT/PLAN: 1. Nasal congestion - ICD9: 478.19, ICD10: R09.81 (primary diagnosis) - may use Coricidin HBP and Flonase nasal spray (over the counter). 2. Nasal drainage - ICD9: 478.19, ICD10: J34.89 - Supportive care with plenty of fluids, rest, and analgesia prn. 3. Headache, unspecified headache type - ICD9: 784.0, ICD10: R51.9 - may take tylenol or ibuprofen as needed. - Follow-up with your PCP in 3-5 days if symptoms have not improved or sooner if symptoms worsen - Discussed red flags and need for immediate medical evaluation if any occur. - Discussed supportive care treatment with fluids, rest and analgesia. - Discussed expected course of illness Michelle Pandey APRN.[employer]GUARD Treatment for Viral Upper Respiratory Tract Infections Your body will kill off the virus by itself. Additionally, you can prime your body's immune system. This may help you get better more quickly. Drink lots of fluids Make sure you are eating well Get plenty of rest We do not have any medications that kill off these viruses. Antibiotics are used to treat bacterial infections; however, they are not active against viral infections. There are some things that might help you feel better, though. Vaporizers, humidifiers, hot showers, and hot fluids help open respiratory and sinus passages [place] [facility] [place] may offer relief of nasal and head congestion Chivo's Vapor Rub may relieve congestion Tylenol and Advil help control fevers and headaches Salt water gargles help relieve sore throats Chloraceptic spray or throat lozenges may also help relieve sore throat symptoms Occasionally, viral infections turn into something more serious. You should see your doctor or return to the Urgent Care if: You have fevers for longer than five days You have fevers above 102 degrees You are still sick after 10 days You have shortness of breath or wheezing After several days you are getting worse rather than better documented in this encounter [facility] Evaluation note No assessment inform ation available [facility] Work Phone: Evaluation note Diagnosis Onset Date Essential hypertension chron ic Hyperlipidemia chronic Mitral valve prolapse chroni c Nonrheumatic mitral valve insufficiency chronic [facility] Work Phone: Evaluation note* Diagnosis Nasal congestion- Primary Other diseases of nasal cavity and sinuses Nasal drainage Other diseases of nasal cavity and sinuses Headache, unspecified headache type [facility] Floaters, bilateral- Primary Growth of eyelid Neoplasm of unspecified nature of bone, soft tissue, and skin Myopia, bilateral Myopia Regular astigmatism, bilateral Presbyopia [facility] (narrative)No reason for referral information availableWHenry [facility] Work Phone: Family History No Family History Records Found Relationship Condition Age at Onset Recorded Date/T pablo father Myocardial infarction 43 Malignant neoplasm Unknown Hypertension Unknown Advance Directives No Advanced Directives Records Found Advance Directive Response Recorded Date/ Time Living Will Yes September 07 8:39am Power of [employer] Ax Consultant Yes September 07, 2021 8:39am Advance Directive Response Recorded Date/ Time Living Will Yes September 07 7:39am Power of [employer] Ax Consultant Yes September 07, 2021 7:39am Chief Complaint and Reason for Visit Chief Complaint 1 Y FU MITRAL VALVE PROLAPSE Reason for Visit Essential hypertensi on Hyperlipidemia Mitral valve prolapse Nonrheumatic mitral valve insufficiency Chief Complaint HEP C, Essential (pr imary) hypertension Summary Purpose Additional Source Comments Goals (unrecognized section and content) Goals may be documented in a n alternate sectionGoals may be documented in an alternate sectionGoals may be documented in an alternate sectionGoals may be documented in an alternate sectionGoals may be documented in an alternate sectionGoals may be documented in an alternate section Care Teams (unrecognized sec tion and content) Team Status: Active Member Role Status Dates Dr. Tlaisha Manzanares MD Family Provider Active Dr. Talisha Manzanares MD Primary Care Provider Active Team Status: Inactive Member Role Status Dates Dr. Talisha Manzanares MD Primary Care Provi fran, Attending Provider, Referring Provider Active Team Status: Inactive Member Role Status Dates Dr. Talisha Manzanares MD Primary Care Provider, Attending Provider Active Numerical Control Lathe Operator Relationship Specialty Start Date End Date Talisha Manzanares Chi PCP - General Gerontology 06/22/17 Numerical Control Lathe Operator Relationship Specialty Start Date End Date Talisha Manzanares Chi PCP - General Gerontology 06/22/17 Team Status: Inactive Member Role Status Dates Dr. Talisha Manzanares MD Primary Care Provider Active Start: January 23, 2025 End: January 23, 2025 Dr. Talisha Manzanares MD Attending Provider Active Start: January 23, 2025 End: January 23, 2025 Dr. Talisha Manzanares MD Referring Provider Active Start: January 23, 2025 End: January 23, 2025 Source Comments (unrecognize d section and content) In the event this informatio n is protected by the Federal Confidentiality of Alcohol and Drug Abuse Patient Records regulations: The Federal rules restrict any use of the information to criminally investigate or prosecute any alcohol or drug abuse patient.[facility] the event this information is protected by the Federal Confidentiality of Alcohol and Drug Abuse Patient Records regulations: The Federal rules restrict any use of the information to criminally investigate or prosecute any alcohol or drug abuse patient.[facility] Reason for Visit (unrecogniz ed section and content) Reason Comments Sinus Problem Pressure on right si de, headache, congestion, and sore throat x1 day. Reason Comments Floaters Both Eyes (unrecognized sect ion and content) No Status Records FoundNo Status Records Found INFORMATION SOURCE (unrecogn ized section and content) DATE CREATED AUTHOR 07/13/2024 [facility] DATE CREATED AUTHOR AUTHOR'S JANNIE STILES 01/30/2025 [facility] FOR RECORDS PERTAINING TO PATIENTS WHO ARE OR HAVE BEEN ENROLLED IN A CHEMICAL DEPENDENCY/SUBSTANCEABUSE PROGRAM, SOME INFORMATION MAY BE OMITTED. This clinical summary was aggregated from multiple sources. Caution should be exercised in using it in the provision of clinical care. This summary normalizes information from multiple sources, and as a consequence, information in this document may materially change the coding, format and clinical context of patient data. In addition, data may be omitted in some cases. CLINICAL DECISIONS SHOULD BE BASED ON THE PRIMARY CLINICAL RECORDS. [employer] (acquired by [employer] in 2014). provides no warranty or guarantee of the accuracy or completeness of information in this document.
[2025-07-01] MEDS: 0.9% Normal Saline (1000mL) 1,000 ML 1000 ML IV (22:02)
[2025-07-01 22:14] VITALS: BP 128/88; PULSE 85; RESP 16; TEMP 36.9; O2SAT 94
[2025-07-01 22:22] LABS: Hematocrit 47.5 % (40-54); Hemoglobin 15.6 g/dL (13.0-16.5); Immature Granulocytes Count 0.020 X10^3/uL (0.0-0.0); Mean Corp Hgb Conc 32.8 g/dL (32-36); Mean Corpuscular Volume 86.2 fL (80-94); Mean Platelet Vol. 11.6 fl (6.2-12.0); NRBC Flagged by Analyzer 0 % (0-5); Platelet Count 195 K/mm3 (150-450); RBC Distribution Width CV 12.9 % (11.6-14.6); RBC Distribution Width SD 40.0 fl (35.1-43.9); Red Blood Count 5.51 M/mm3 (4.6-6.2); White Blood Count 8.1 K/mm3 (4.4-11.0)
[2025-07-01 22:29] LABS: Mucous, Urine 0 SEEN /hpf (<or=2+)
[2025-07-01 22:31] LABS: Color, Urine Yellow (Yellow); Glucose, Dipstick Normal (Normal); Ketone-Dipstick Negative (Negative); Leukocyte Esterase-Dipstick Negative /ul (Negative); Nitrite-Dipstick Negative (Negative); Occult Blood-Urine 250 /ul (Negative); Protein-Dipstick 30 mg/dl (Negative); Specific Gravity, Urine 1.025 (1.002-1.030); Urine Bilirubin Dipstick Negative (Negative)
[2025-07-01 22:31] LABS: AST(SGOT) 33 U/L (<=37); Alanine Aminotransfer ALT/SGPT 34 U/L (<=46); Albumin, Serum 4.6 g/dL (3.5-5.0); Alkaline Phosphatase 58 U/L (40-129); Anion Gap 12 (5-15); BUN 22 mg/dL (4-19); BUN/Creat Ratio 18.6 RATIO (10-20); Calcium,Total 10.2 mg/dL (7.6-11.0); Carbon Dioxide 24.0 mmol/L (21.0-32.0); Chloride 103 mmol/L (98-108); Estimated Creatinine Clearance 88.91 ml/min (50-250); Globulin 2.9 g/dL (2.2-4.2); Glucose 150 mg/dL (70-99); Potassium 4.4 mmol/L (3.3-5.1)
[2025-07-01 22:42] LABS: Red Blood Cells-Urine > 100 SEEN /hpf (0-5); Squamous Epithelial Cells - UA 0-5 SEEN /hpf (0-5)
[2025-07-01 23:14] VITALS: BP 130/82; PULSE 85; RESP 16; TEMP 36.8; O2SAT 95
[2025-07-02] VITALS (7 sets, daily range): BP systolic 122–150; BP diastolic 76–92; PULSE 72–89; RESP 16–18; TEMP 36.7–37.1; O2SAT 95–100
== END 2025-07-02 07:49 | disposition home or self-care (01) ==
PROVIDERS: Emergency Provider Student in an Organized Health Care Education/Training Program; PCP Family Medicine Geriatric Medicine; Visit Provider Student in an Organized Health Care Education/Training Program
DX: N13.2 Hydronephrosis with renal and ureteral calculous obstruction (principal); I10 Essential (primary) hypertension; E78.5 Hyperlipidemia, unspecified; Z87.891 Personal history of nicotine dependence
CPT/HCPCS: 74176; 80053; 81001; 85025; 96361; 96374; 96375; 99283; J2405

== ENCOUNTER → 2025-07-10 | Outpatient (CLI) | payer BC, SELFPAY ==
[2025-07-10 15:23] LABS: Hematocrit 45.5 % (40-54); Hemoglobin 14.9 g/dL (13.0-16.5); Immature Granulocytes Count 0.020 X10^3/uL (0.0-0.0); Mean Corp Hgb Conc 32.7 g/dL (32-36); Mean Corpuscular Volume 86.5 fL (80-94); Mean Platelet Vol. 11.0 fl (6.2-12.0); NRBC Flagged by Analyzer 0 % (0-5); Platelet Count 180 K/mm3 (150-450); RBC Distribution Width CV 13.0 % (11.6-14.6); RBC Distribution Width SD 40.3 fl (35.1-43.9); Red Blood Count 5.26 M/mm3 (4.6-6.2); White Blood Count 8.0 K/mm3 (4.4-11.0)
[2025-07-10 15:54] LABS: AST(SGOT) 32 U/L (<=37); Alanine Aminotransfer ALT/SGPT 36 U/L (<=46); Albumin, Serum 4.6 g/dL (3.5-5.0); Alkaline Phosphatase 55 U/L (40-129); Anion Gap 12 (5-15); BUN 19 mg/dL (4-19); BUN/Creat Ratio 14.5 RATIO (10-20); Calcium,Total 9.7 mg/dL (7.6-11.0); Carbon Dioxide 25.1 mmol/L (21.0-32.0); Chloride 102 mmol/L (98-108); Globulin 2.6 g/dL (2.2-4.2); Glucose 184 mg/dL (70-99); Potassium 4.0 mmol/L (3.3-5.1)
[2025-07-10 23:10] LABS: Xtra Tube Kwok EXTRA TUBE
== END | disposition home or self-care (01) ==
LOC: POLAB3 15:10
PROVIDERS: PCP Family Medicine Geriatric Medicine; Visit Provider Family Medicine Geriatric Medicine
DX: I10 Essential (primary) hypertension (principal); E03.9 Hypothyroidism, unspecified
CPT/HCPCS: 36415; 80053; 84443; 85025

== ENCOUNTER → 2025-08-01 | Outpatient (CLI) | payer BC, SELFPAY ==
--- NOTE | 2025-08-01 14:54 | CALC_PTH ---
PATIENT: [place] COOK LOC: LAB U#:[id number] AGE/SX: 55/M ROOM: RE08/01/[address]: Carol Jarquin : 1970 BED: DIS: 08/01/2025 SPEC #: [id number] RECD: 08/01/25 15:34 STATUS: RAJNI RONDA #: [id number] CHRIS: 08/01/25 14:[address]: Carol Jarquin DEPT: SURGICAL PATHOLOGY RECD BY: Iain Heller ENTERED: 08/02/25 15:01 SP TYPE: Calculi OTHR DR: Dr. Claude Onofre MD Tissues: A - CALCULI Procedures: Surgery Specimen Level I HEADER OPERATION: Not noted PRE-OP DIAGNOSIS: Calculus of kidney TISSUE SUBMITTED: A- Calculus GROSS DIAGNOSIS A. Calculus, kidney, removal: - Urolithiasis (gross examination only). - Sent for chemical analysis - see Comment. COMMENT The calculus is submitted in its entirety for chemical stone analysis. The results from this study will be reported separately. GROSS DESCRIPTION A. Received fresh labeled the patient's name and date of is a 0.5 cm yellow to dark brown irregular calculus. No sections are submitted. The specimen is sent for stone analysis. [place] 08/02/2025 CPT:92587
[2025-08-01 17:25] LABS: PTHIN 42 pg/mL (11-61)
[2025-08-01 17:28] LABS: AST(SGOT) 34 U/L (<=37); Alanine Aminotransfer ALT/SGPT 37 U/L (<=46); Albumin, Serum 4.6 g/dL (3.5-5.0); Alkaline Phosphatase 60 U/L (40-129); Anion Gap 12 (5-15); BUN 15 mg/dL (4-19); BUN/Creat Ratio 16.6 RATIO (10-20); Calcium,Total 9.6 mg/dL (7.6-11.0); Carbon Dioxide 23.7 mmol/L (21.0-32.0); Chloride 102 mmol/L (98-108); Globulin 2.5 g/dL (2.2-4.2); Glucose 74 mg/dL (70-99); Magnesium 2.3 mg/dL (1.5-2.2); Potassium 3.9 mmol/L (3.3-5.1)
[2025-08-12 13:07] LABS: Ca Oxalate, Dihydrate 10 % (.); Ca Oxalate, Monohydrate 85 % (.)
== END | disposition home or self-care (01) ==
PROVIDERS: PCP Family Medicine Geriatric Medicine; Referring Provider Nurse Practitioner; Visit Provider Nurse Practitioner
DX: N20.0 Calculus of kidney (principal)
CPT/HCPCS: 36415; 80053; 82360; 83735; 83970; 84100; 88300

== ENCOUNTER → 2025-08-03 | Outpatient (CLI) | payer BC, SELFPAY ==
[2025-08-08 11:08] LABS: Citric Acid, 24Ur 828 mg/24 hr (320-1240); Citric Acid, Ur 552 mg/L (Undefined)
== END | disposition home or self-care (01) ==
LOC: LABSPEC 15:47
PROVIDERS: PCP Family Medicine Geriatric Medicine; Referring Provider Urology; Visit Provider Urology
DX: N20.0 Calculus of kidney (principal)
CPT/HCPCS: 36415; 81050; 82507